=== PATIENT | male | born 1935 ===

== ENCOUNTER 2017-03-01 09:48 | Inpatient (IN) | payer MEDICARE, MEDICAID ==
--- NOTE | 2017-03-01 11:29 | ED PDOC ---
HPI: SOB/CHF/COPD Time Seen by Provider: 03/01/17 10:00 Chief Complaint (Nursing): Shortness Of Breath Chief Complaint (Provider): shortness of breath History Per: Patient History/Exam Limitations: other (poor historian) Additional Complaint(s): 81yo male brought from adult day care for 4 days of shortness of breath. Patient is on O2 at home. EMS gave 2x albuterol, 1x atrovent & solumedrol 125mg in the field. Patient is on O2 at residential. Patient is poor historian. Past Medical History Reviewed: Historical Data, Nursing Documentation, Vital Signs, Unable To Obtain Vital Signs: Last Vital Signs Temp 98.5 F 03/02/17 15:54 Pulse 80 03/02/17 15:54 Resp 18 03/02/17 15:54 BP 126/62 03/02/17 15:54 Pulse Ox 93 L 03/02/17 15:54 - Medical History PMH: Arthritis, Atrial Fibrillation, CHF, Emphysema Denies: Chronic Kidney Disease - Surgical History Other surgeries: valvular surgery - Family History Family History: States: Unknown Family Hx - Social History Current smoker - smoking cessation education provided: No Alcohol: None Drugs: Denies - Home Medications Home Medications: Ambulatory Orders Medication Instructions Recorded Albuterol Sulfate [Proair Hfa] 2 puff IH Q4H PRN 08/12/16 Docusate [Colace] 100 mg PO BID 08/12/16 Ferrous Sulfate [Feosol] 325 mg PO TID 08/12/16 Fluticasone/Salmeterol 250/50 1 puff IH Q12H 08/12/16 [Advair Diskus 250/50] Furosemide [Lasix] 40 mg PO DAILY 08/12/16 Levothyroxine [Synthroid] 25 mcg PO DAILY 08/12/16 Nitroglycerin [Nitrostat] 0.4 mg SL Q5MIN PRN 08/12/16 Rosuvastatin Calcium [Crestor] 40 mg PO HS 08/12/16 Tiotropium [Spiriva] 18 mcg IH DAILY 08/12/16 Warfarin [Coumadin] 5 mg PO DAILY 08/12/16 Acetaminophen [Tylenol 325mg tab] 325 mg PO Q6H PRN 03/01/17 Diclofenac Sodium [Voltaren] 1 appl TOP Q6H PRN 03/01/17 Mv,Min10/Folic Acid/D3/Ala/Lut 1 tab PO DAILY 03/01/17 [Strovite One Caplet] - Allergies Allergies/Adverse Reactions: Allergies Allergy/AdvReac Type Severity Reaction Status Date / Time No Known Allergies Allergy Verified 03/01/17 10:03 Review of Systems Review Of Systems: ROS cannot be obtained secondary to pt's inabilty to answer questions. Physical Exam - Reviewed Nursing Documentation Reviewed: Yes Vital Signs Reviewed: Yes - Physical Exam Appears: Positive for: Well, Non-toxic, No Acute Distress Head Exam: Positive for: ATRAUMATIC, NORMAL INSPECTION, NORMOCEPHALIC Skin: Positive for: Warm, Dry Eye Exam: Positive for: EOMI, PERRL Cardiovascular/Chest: Positive for: Regular Rate, Rhythm Respiratory: Positive for: Rhonchi (slight). Negative for: Rales, Wheezing Gastrointestinal/Abdominal: Positive for: Soft. Negative for: Tenderness Extremity: Positive for: Normal ROM Neurologic/Psych: Positive for: Alert, Oriented - Laboratory Results Result Diagrams: 03/02/17 05:20 03/02/17 05:20 - ECG O2 Sat by Pulse Oximetry: 96 (RA) Pulse Ox Interpretation: Normal (RA) Medical Decision Making Medical Decision Makin:53 Initial Impression: Shortness of breath rule out pneumonia Initial Plan: * Chest X-Ray * Labs * Albuterol * Reevaluation 12:45 Chest X-Ray Results FINDINGS: Lungs: Slight increased vascularity with patchy at alveolar-type appearing infiltrates the right mid to lower lung field ; findings may represent asymmetric pulmonary edema however concomitant pneumonia not excluded. Pleura: No significant pleural effusion identified. No pneumothorax apparent. Cardiovascular: Heart remains enlarged. Probable valve replacement. Osseous Structures: No significant abnormalities. Visualized Upper Abdomen: Normal. OTHER FINDINGS: None. IMPRESSION: Slight increased vascularity with patchy at alveolar-type appearing infiltrates the right mid to lower lung field; findings may represent asymmetric pulmonary edema however concomitant pneumonia not excluded. 14:30 Patient will be admit under hospitalist service iv abx ordered for pneumonia pt also with copd, given steroids and neb treatments Clinical Impression: Pneumonia, Chronic Obstructive, Pulmonary Disease Disposition - Clinical Impression Clinical Impression: COPD exacerbation, Pneumonia - Patient ED Disposition Is Patient to be Admitted: Yes - Disposition Disposition Time: 12:00 Condition: STABLE Additional Comments - Additional Comments Additional Comments: Scribe Attestation: Documented by Rahul Castro acting as a scribe for Elida Quintana MD. Provider Scribe Attestation: All medical record entries made by the Scribe were at my direction and personally dictated by me. I have reviewed the chart and agree that the record accurately reflects my personal performance of the history, physical exam, medical decision making, and the department course for this patient. I have also personally directed, reviewed, and agree with the discharge instructions and disposition.
[2017-03-01] MEDS ORDERED: Albuterol 0.083% Inhal Sol (2.5 mg/3 mL) UD INH ONE ×2 (11:32→14:27)
[2017-03-01] MEDS ORDERED: Albuterol-Ipratrop 3 mg / 0.5 (3 ml) UD ONE (11:47)
[2017-03-01] MEDS ORDERED: Albuterol 0.083% Inhal Sol (2.5 mg/3 mL) UD ONE ×2 (11:51→14:40)
--- NOTE | 2017-03-01 12:46 | RAD ---
HISTORY: short of breath COMPARISON: Comparison made with chest radiograph TECHNIQUE: Chest PA and lateral FINDINGS: LUNGS: Slight increased vascularity with patchy at alveolar-type appearing infiltrates the right mid to lower lung field ; findings may represent asymmetric pulmonary edema however concomitant pneumonia not excluded. PLEURA: No significant pleural effusion identified. No pneumothorax apparent. CARDIOVASCULAR: Heart remains enlarged. . Probable valve replacement. OSSEOUS STRUCTURES: No significant abnormalities. VISUALIZED UPPER ABDOMEN: Normal. OTHER FINDINGS: None. IMPRESSION: Slight increased vascularity with patchy at alveolar-type appearing infiltrates the right mid to lower lung field ; findings may represent asymmetric pulmonary edema however concomitant pneumonia not excluded.
[2017-03-01 12:47] LABS: BASO % 0.3 % (0.0-2.0); EOS % 0.2 % (0.0-4.0); HEMATOCRIT 31.2 % (35.0-51.0); LYMPH # 0.6 K/uL (1.0-4.3); LYMPH % 5.4 % (20.0-40.0); MEAN CELL VOLUME 87.5 fl (80.0-94.0); MEAN CORPUSCULAR HEMOGLOBIN 29.5 pg (27.0-31.0); MEAN CORPUSCULAR HGB CONC 33.7 g/dL (33.0-37.0); MEAN PLATELET VOLUME 8.1 fl (7.2-11.7); MONO # 0.2 K/uL (0.0-0.8); MONO % 1.6 % (0.0-10.0); NEUT # 10.8 K/uL (1.8-7.0); NEUT % 92.5 % (50.0-75.0); NRBC % 0.2 % (0.0-0.0); PLATELET COUNT 66 K/uL (130-400); RED CELL DISTRIBUTION WIDTH 14.5 % (11.5-14.5); WHITE BLOOD COUNT 11.7 K/uL (4.8-10.8)
[2017-03-01 12:58] LABS: ALB/GLOB RATIO 1.4 (1.0-2.1); ALKALINE PHOSPHATASE 25 U/L (38-126); ALT/SGPT 56 U/L (21-72); AST/SGOT 52 U/L (17-59); BILIRUBIN,TOTAL 0.8 mg/dl (0.2-1.3); BLOOD UREA NITROGEN 19 mg/dl (9-20); CALCIUM 8.2 mg/dL (8.4-10.2); CARBON DIOXIDE 34 mmol/L (22-30); CHLORIDE 95 mmol/L (98-107); GFR AFRICAN-AMERICAN > 60; GLUCOSE,RANDOM 138 mg/dL (75-110); POTASSIUM 4.3 MMOL/L (3.6-5.0); SODIUM 139 mmol/l (132-148)
[2017-03-01 14:09] LABS: NEUTROPHIL 96 % (42-75); TOTAL CELLS COUNTED 100
[2017-03-01 14:10] LABS: GIANT PLATELETS PRESENT; LARGE PLATELETS PRESENT
[2017-03-01] MEDS ORDERED: Azithromycin 500 MG in Sodium Chloride 0.9% 250 ML IVPB STA (14:26)
[2017-03-01] MEDS ORDERED: cefTRIAXone (Rocephin) 1 gm Inj ONE (14:37)
--- NOTE | 2017-03-01 14:52 | CP.PCM.HP ---
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 Patient was given steroids and multiple breathing treatments in the field. WBC elevated 11.7, low grade fever, and CXR shows patchy infiltrates, can not exclude pneumonia R mid- lower lung bird. +rhonchi on exam, however patient is comfortably breathing without respiratory distress. 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 HEENT: normocephalic, atraumatic PERRL, EOMI. Vision is grossly intact. External auditory canals clear, hearing grossly intact. No nasal discharge. Oral cavity and pharynx normal. No inflammation, swelling, exudate, or lesions. NECK: Neck supple, non-tender without lymphadenopathy, masses or thyromegaly. CARDIAC: Normal S1 and S2. No S3, S4 or murmurs. Rhythm is regular. LUNGS: +rhonchi, wheezing. no diminished breath sounds. ABDOMEN: Positive bowel sounds. Soft, nondistended, nontender. No guarding or rebound. No masses. BACK: Examination of the spine reveals no spinal deformity, symmetry of spinal muscles, EXTREMITIES: No significant deformity or joint abnormality. No edema. NEUROLOGICAL: Strength and sensation symmetric and intact throughout. Reflexes 2 + throughout. SKIN: Skin normal color, texture and turgor with no lesions or eruptions. PSYCHIATRIC: The patient was oriented to person, place, and time. Normal affect. LABS: 03/01/17 12:28 03/01/17 12:28 IMAGING STUDIES CXR IMPRESSION: Slight increased vascularity with patchy at alveolar-type appearing infiltrates the right mid to lower lung field ; findings may represent asymmetric pulmonary edema however concomitant pneumonia not excluded. EKG NSR, RBBB, rate controlled. ACTIVE MEDICATIONS Azithromycin [Zithromax] 500 mg Sodium Chloride 0.9% [Sodium Chloride 0.9% ADDVANTAGE] 250 ml IVPB STAT cefTRIAXone [Rocephin] 1 gm Sodium Chloride 0.9% 100 ml IVPB STAT 03/01/17 14:42 Diclofenac Sodium [Voltaren] 1 appl TOP Q6H PRN 03/01/17 14:45 Fluticasone/Salmeterol 250/50 [Advair Diskus 250/50] 1 puff IH Q12H 03/01/17 14:47 Levalbuterol [Xopenex] 1.25 mg INH RQ8 PRN 03/01/17 15:00 Furosemide [Lasix] 40 mg PO DAILY 03/01/17 17:00 Docusate [Colace] 100 mg PO BID Ferrous Sulfate [Feosol] 325 mg PO TID methylPREDNISolone [SOLU-Medrol] 60 mg Sodium Chloride 0.9% 50 ml IVPB Q8 03/02/17 09:00 Azithromycin [Zithromax] 500 mg Sodium Chloride 0.9% [Sodium Chloride 0.9% ADDVANTAGE] 250 ml IVPB DAILY Levothyroxine [Synthroid] 25 mcg PO DAILY Tiotropium [Spiriva] 18 mcg IH DAILY Warfarin [Coumadin] 5 mg PO DAILY Anticoagulation Clinical Indication: Atrial Fibrillation cefTRIAXone [Rocephin] 1,000 mg Ped IV Syringe 1 syr IVPB DAILY ASSESSMENT AND PLAN 81 year old male with PMH afib on coumadin, CAD, s/p bovine transcatheter valve implant, hypertension, 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 Patient was given steroids and multiple breathing treatments in the field. WBC elevated 11.7, low grade fever, and CXR shows patchy infiltrates, can not exclude pneumonia R mid-lower lung bird. +rhonchi on exam, however patient is comfortably breathing without respiratory distress. Pneumonia RML, RLL WBC 11.7, afebrile nonproductive cough Continue Azithromycin and Ceftriaxone Continue Xopenex treatments Monitor CBC Emphysema, COPD exacerbation Solumedrol 60mg q8 Xopenex treatments cont advair and spiriva AFIB rate controlled on Coumadin INR for today pending CAD with Valve replacement Cardiomegaly continue lasix continue plavix Hypothyroid continue synthroid Obesity with EVELYN BMI 40.4 Counseled on weight loss DVT prophylaxis on Coumadin for AFib Present on Admission - Present on Admission Any Indicators Present on Admission: No Past Patient History - Past Social History Smoking Status: Former Smoker - CARDIAC Hx Atrial Fibrillation: Yes Hx Congestive Heart Failure: Yes - PULMONARY Hx Emphysema: Yes - RENAL Hx Chronic Kidney Disease: No - ENDOCRINE/METABOLIC Hx Endocrine Disorders: No - INTEGUMENTARY Hx Dermatological Problems: No - MUSCULOSKELETAL/RHEUMATOLOGICAL Hx Arthritis: Yes - PSYCHIATRIC Hx Substance Use: No - SURGICAL HISTORY Hx Cardiac Catheterization: Yes Hx Orthopedic Surgery: Yes - ANESTHESIA Hx Anesthesia: Yes Hx Anesthesia Reactions: No Hx Malignant Hyperthermia: No Meds Allergies/Adverse Reactions: Allergies Allergy/AdvReac Type Severity Reaction Status Date / Time No Known Allergies Allergy Verified 03/01/17 10:03 Results - Vital Signs Recent Vital Signs: Last Vital Signs Temp 99 F 03/01/17 10:04 Pulse 75 03/01/17 10:04 Resp 21 03/01/17 10:04 BP 150/50 L 03/01/17 10:04 Pulse Ox 96 03/01/17 13:22 - Labs Result Diagrams: 03/01/17 12:28 03/01/17 12:28 Labs: Laboratory Results - last 24 hr 03/01/17 03/01/17 12:28 12:28 WBC 11.7 H D RBC 3.56 L Hgb 10.5 L Hct 31.2 L MCV 87.5 MCH 29.5 MCHC 33.7 RDW 14.5 Plt Count 66 L D MPV 8.1 Neut % (Auto) 92.5 H Lymph % (Auto) 5.4 L [place] % (Auto) 1.6 Eos % (Auto) 0.2 Baso % (Auto) 0.3 Neut # 10.8 H Lymph # 0.6 L [place] # 0.2 Eos # 0.0 Baso # 0.0 Neutrophils % (Manual) 96 H Lymphocytes % (Manual) 2 L Monocytes % (Manual) 2 Toxic Granulation Present Platelet Estimate Decreased L Large Platelets Present Giant Platelets Present Hypochromasia (manual) Slight Anisocytosis (manual) Slight Sodium 139 Potassium 4.3 Chloride 95 L Carbon Dioxide 34 H Anion Gap 14 BUN 19 Creatinine 0.8 Est GFR ( Amer) > 60 Est GFR (Non-Af Amer) > 60 Random Glucose 138 H Calcium 8.2 L Total Bilirubin 0.8 AST 52 ALT 56 Alkaline Phosphatase 25 L Troponin I 0.0820 Total Protein 7.0 Albumin 4.1 Globulin 2.9 Albumin/Globulin Ratio 1.4
[2017-03-01 16:56] LABS: PARTIAL THROMBOPLASTIN TIME 30.1 Seconds (25.6-37.1)
[2017-03-01] MEDS ORDERED: MethylPREDNISolone 40 mg Vial ONE (17:49)
[2017-03-01] MEDS: methylPREDNISolone 60 MG in Sodium Chloride 0.9% 50 ML IVPB SCH (17:59)
[2017-03-02] MEDS: Levalbuterol 1.25 MG/3 ML Inhal Soln UD INH PRN ×2 (01:28→06:48)
[2017-03-02] MEDS: methylPREDNISolone 60 MG in Sodium Chloride 0.9% 50 ML IVPB SCH ×3 (02:00→16:49)
[2017-03-02] MEDS: Fluticasone-Salmeterol 250-50mcg Diskus IH SCH ×2 (02:19→14:15)
[2017-03-02] MEDS: Levothyroxine 25 MCG TAB PO SCH (06:25)
[2017-03-02 06:57] LABS: BASO % 0.1 % (0.0-2.0); HEMATOCRIT 28.1 % (35.0-51.0); LYMPH # 0.5 K/uL (1.0-4.3); LYMPH % 5.4 % (20.0-40.0); MEAN CELL VOLUME 88.3 fl (80.0-94.0); MEAN CORPUSCULAR HEMOGLOBIN 29.5 pg (27.0-31.0); MEAN CORPUSCULAR HGB CONC 33.4 g/dL (33.0-37.0); MEAN PLATELET VOLUME 7.6 fl (7.2-11.7); MONO # 0.4 K/uL (0.0-0.8); MONO % 3.9 % (0.0-10.0); NEUT # 8.5 K/uL (1.8-7.0); NEUT % 90.6 % (50.0-75.0); NRBC % 0.1 % (0.0-0.0); PLATELET COUNT 55 K/uL (130-400); RED CELL DISTRIBUTION WIDTH 14.7 % (11.5-14.5); WHITE BLOOD COUNT 9.4 K/uL (4.8-10.8)
[2017-03-02] MEDS ORDERED: Levalbuterol 1.25 MG/3 ML Inhal Soln UD INH ONE (07:05)
[2017-03-02 07:33] LABS: BLOOD UREA NITROGEN 26 mg/dl (9-20); CALCIUM 8.2 mg/dL (8.4-10.2); CARBON DIOXIDE 33 mmol/L (22-30); CHLORIDE 98 mmol/L (98-107); GFR AFRICAN-AMERICAN > 60; GLUCOSE,RANDOM 147 mg/dL (75-110); POTASSIUM 4.5 MMOL/L (3.6-5.0); SODIUM 140 mmol/l (132-148)
[2017-03-02] MEDS: Azithromycin 500 MG in Sodium Chloride 0.9% 250 ML IVPB SCH (09:09)
[2017-03-02] MEDS: Tiotropium 18 mcg Cap For Inhalation IH SCH (09:09)
[2017-03-02 10:13] LABS: MYELOCYTE 1 % (0-0); NEUTROPHIL 90 % (42-75); TOTAL CELLS COUNTED 100
[2017-03-02 10:16] LABS: LARGE PLATELETS PRESENT
--- NOTE | 2017-03-02 11:10 | CP.PCM.PN ---
Subjective - Date & Time of Evaluation Date of Evaluation: 03/02/17 Time of Evaluation: 11:08 - Subjective Subjective: patient seen examined bedside, states he feels improved however has dyspnea on exertion has new crackles in lung bases pt walks with walker at home, will order PT ECHO for today diurese for likely concomitant chf exacerbation thrombocytopenic today, plt 55, manual 76 hold anticoagulation today no active chest pain, no dyspnea at rest. Temp Pulse Resp BP Pulse Ox 98.7 F 78 20 126/60 90 L 03/02/17 07:55 03/02/17 09:00 03/02/17 07:55 03/02/17 09:40 03/02/17 07:55 Objective - Vital Signs/Intake and Output Vital Signs (last 24 hours): Temp Pulse Resp BP Pulse Ox 98.7 F 78 20 126/60 90 L 03/02/17 07:55 03/02/17 09:00 03/02/17 07:55 03/02/17 09:40 03/02/17 07:55 - Medications Medications: Current Medications Docusate Sodium (Colace) 100 mg PO BID [facility] Last Admin: 03/02/17 08:53 Dose: 100 mg Ferrous Sulfate (Feosol) 325 mg PO TID [facility] Last Admin: 03/02/17 08:54 Dose: 325 mg Furosemide (Lasix) 40 mg PO DAILY [facility] Last Admin: 03/02/17 08:54 Dose: 40 mg Furosemide (Lasix) 40 mg IVP Q12 [facility] Home Med (Diclofenac Sodium [Voltaren]) 1 appl TOP Q6H PRN PRN Reason: Pain, moderate (4-7) Azithromycin 500 mg/ Sodium (Chloride) 250 mls @ 250 mls/hr IVPB DAILY [facility] Last Admin: 03/02/17 09:09 Dose: 250 mls/hr Ceftriaxone Sodium 1 gm/ (Sodium Chloride) 100 mls @ 100 mls/hr IVPB DAILY [facility] Last Admin: 03/02/17 08:00 Dose: 100 mls/hr Methylprednisolone 60 mg/ (Sodium Chloride) 50.96 mls @ 101.92 mls/hr IVPB Q8 [facility] Last Admin: 03/02/17 08:55 Dose: 101.92 mls/hr Levalbuterol HCl (Xopenex) 1.25 mg INH RQ8 PRN PRN Reason: Shortness of Breath Last Admin: 03/02/17 06:48 Dose: 1.25 mg Levothyroxine Sodium (Synthroid) 25 mcg PO DAILY@0630 [facility] Last Admin: 03/02/17 06:25 Dose: 25 mcg Rivaroxaban (Xarelto) 20 mg PO DAILY [facility] PRN Reason: Protocol Fluticasone/Salmeterol (Advair Diskus 250/50) 1 puff IH Q12H [facility] Last Admin: 03/02/17 02:19 Dose: 1 puff Tiotropium [place] (Spiriva) 18 mcg IH DAILY [facility] Last Admin: 03/02/17 09:09 Dose: 18 mcg - Labs Labs: 03/02/17 05:20 03/02/17 05:20 PT 12.8 Seconds (9.8-13.1) 03/02/17 05:20 INR 1.1 (0.9-1.2) 03/02/17 05:20 APTT 30.1 Seconds (25.6-37.1) 03/01/17 15:00 - Constitutional Appears: Non-toxic, No Acute Distress - Head Exam Head Exam: ATRAUMATIC, NORMOCEPHALIC - Eye Exam Eye Exam: EOMI, Normal appearance, PERRL Pupil Exam: NORMAL ACCOMODATION - ENT Exam ENT Exam: Mucous Membranes Moist, Normal Oropharynx - Neck Exam Neck Exam: Full ROM, Normal Inspection - Respiratory Exam Respiratory Exam: Rales, Rhonchi. absent: Respiratory Distress - Cardiovascular Exam Cardiovascular Exam: RRR, +S1, +S2. absent: Gallop, Rubs - GI/Abdominal Exam GI & Abdominal Exam: Soft. absent: Tenderness, Mass, Organomegaly - Extremities Exam Extremities Exam: Normal Capillary Refill. 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 Patient was given steroids and multiple breathing treatments in the field. WBC elevated 11.7, low grade fever, and CXR shows patchy infiltrates, can not exclude pneumonia R mid-lower lung bird. +rhonchi on exam, however patient is comfortably breathing without respiratory distress. 03/02/17: + Dyspnea on exertion and new crackles in lung bases. Pt walks with walker at home, will order PT and ECHO for today. Diurese for likely concomitant chf exacerbation. Thrombocytopenic today, plt 55, manual 76, hold anticoagulation today Pneumonia RML, RLL WBC 11.7 on admission, afebrile Today leukocytosis improved, rales on exam today Continues to have mild cough Continue Azithromycin and Ceftriaxone Continue Xopenex treatments Monitor CBC Physical therapy ordered for today, called. Emphysema, COPD exacerbation Solumedrol 60mg q8 Xopenex treatments cont advair and spiriva CHF exacerbation Rales on exam today Pt on Lasix 40 PO at home, will give additional 20mg IVP this morning Continue with 40 IVP until symptoms resolve Monitor renal function - Cr 0.9 today, mild azotemia, monitor. ECHO for today, called Thrombocytopenia Platelets 55 today, 76 on manual count monitor Hematology and Oncology Consult: Dr. Jeremías Arias AFIB rate controlled pt to be switched to XARELTO today 20 mg PO QD for afib with nonmetal valve replacement HOLD today, however for thrombocytopenia 76 manual count CAD with Valve replacement Cardiomegaly continue lasix continue plavix Hypothyroid continue synthroid Obesity with EVELYN BMI 40.4 Counseled on weight loss DVT prophylaxis on XARELTO for AFIB
[2017-03-02] MEDS ORDERED: Menthol/Methyl Salicylate Oinment TOP PRN (12:00)
--- NOTE | 2017-03-02 13:13 | CP.PCM.CON ---
History of Present Illness - History of Present Illness History of Present Illness: This is a 81 yrs old male who was brought to the ER from adult day care because of cough and shortness of breath. He has a h/o CHF, copd and asthma. He was given an albuterol treatment in the ambulance, and pt felt a little better. A chest xray done in the ER showed a infiltrative changes in the left mid and lower lugs. He was started on His platelet cunt is 55 but manual count is 76K. No h/o heavy smoking.antibiotics with ceftriaxone and azithromycin and pt's wbc count which was 11 has gone down to 7.4He gives no h/o bleeding from any site. Past Patient History - Past Medical History & Family History Past Medical History?: Yes - Past Social History Smoking Status: Former Smoker - CARDIAC Hx Cardiac Disorders: Yes Hx Atrial Fibrillation: Yes Hx Hypertension: Yes - PULMONARY Hx Respiratory Disorders: Yes Hx Asthma: Yes Hx Emphysema: Yes - NEUROLOGICAL Hx Neurological Disorder: No - HEENT Hx HEENT Problems: No - RENAL Hx Chronic Kidney Disease: No - ENDOCRINE/METABOLIC Hx Endocrine Disorders: No - HEMATOLOGICAL/ONCOLOGICAL Hx Blood Disorders: No Hx AIDS: No Hx Human Immunodeficiency Virus (HIV): No - INTEGUMENTARY Hx Dermatological Problems: No - MUSCULOSKELETAL/RHEUMATOLOGICAL Hx Arthritis: Yes Hx Falls: No - GASTROINTESTINAL Hx Gastrointestinal Disorders: No - GENITOURINARY/GYNECOLOGICAL Hx Genitourinary Disorders: No - PSYCHIATRIC Hx Psychophysiologic Disorder: No Hx Substance Use: No - SURGICAL HISTORY Hx Cardiac Catheterization: Yes Hx Orthopedic Surgery: Yes - ANESTHESIA Hx Anesthesia: Yes Hx Anesthesia Reactions: No Hx Malignant Hyperthermia: No Meds Allergies/Adverse Reactions: Allergies Allergy/AdvReac Type Severity Reaction Status Date / Time No Known Allergies Allergy Verified 03/01/17 10:03 - Medications Medications: Current Medications Camphor/Menthol (Bengay) 1 applic TOP Q6H PRN PRN Reason: Pain, moderate (4-7) Docusate Sodium (Colace) 100 mg PO BID [facility] Last Admin: 03/02/17 08:53 Dose: 100 mg Ferrous Sulfate (Feosol) 325 mg PO TID [facility] Last Admin: 03/02/17 08:54 Dose: 325 mg Furosemide (Lasix) 40 mg PO DAILY [facility] Last Admin: 03/02/17 08:54 Dose: 40 mg Furosemide (Lasix) 40 mg IVP Q12 [facility] Azithromycin 500 mg/ Sodium (Chloride) 250 mls @ 250 mls/hr IVPB DAILY [facility] Last Admin: 03/02/17 09:09 Dose: 250 mls/hr Ceftriaxone Sodium 1 gm/ (Sodium Chloride) 100 mls @ 100 mls/hr IVPB DAILY [facility] Last Admin: 03/02/17 08:00 Dose: 100 mls/hr Methylprednisolone 60 mg/ (Sodium Chloride) 50.96 mls @ 101.92 mls/hr IVPB Q8 [facility] Last Admin: 03/02/17 08:55 Dose: 101.92 mls/hr Levalbuterol HCl (Xopenex) 1.25 mg INH RQ8 PRN PRN Reason: Shortness of Breath Last Admin: 03/02/17 06:48 Dose: 1.25 mg Levothyroxine Sodium (Synthroid) 25 mcg PO DAILY@0630 [facility] Last Admin: 03/02/17 06:25 Dose: 25 mcg Rivaroxaban (Xarelto) 20 mg PO DAILY [facility] PRN Reason: Protocol Fluticasone/Salmeterol (Advair Diskus 250/50) 1 puff IH Q12H [facility] Last Admin: 03/02/17 02:19 Dose: 1 puff Tiotropium [place] (Spiriva) 18 mcg IH DAILY [facility] Last Admin: 03/02/17 09:09 Dose: 18 mcg Physical Exam - Additional Findings Additional findings: Physical exam' obese, alert, well oriented in no acute distress neck; Supple, no adenopathy Chest; Clear, no rales or rhonchi Heart; RSR, no murmur Abd; Soft, no mass, no h./s megaly Results - Vital Signs Recent Vital Signs: Last Vital Signs Temp 98.4 F 03/02/17 12:07 Pulse 83 03/02/17 12:07 Resp 20 03/02/17 12:07 BP 123/62 03/02/17 12:07 Pulse Ox 90 L 03/02/17 12:07 - Labs Result Diagrams: 03/02/17 05:20 03/02/17 05:20 Labs: Laboratory Results - last 24 hr 03/01/17 03/02/17 03/02/17 15:00 05:20 05:20 WBC 9.4 RBC 3.18 L Hgb 9.4 L Hct 28.1 L MCV 88.3 MCH 29.5 MCHC 33.4 RDW 14.7 H Plt Count 55 L Manual Plt Count 76 L MPV 7.6 Neut % (Auto) 90.6 H Lymph % (Auto) 5.4 L [place] % (Auto) 3.9 Eos % (Auto) 0.0 Baso % (Auto) 0.1 Neut # 8.5 H Lymph # 0.5 L [place] # 0.4 Eos # 0.0 Baso # 0.0 Neutrophils % (Manual) 90 H Lymphocytes % (Manual) 4 L Monocytes % (Manual) 5 Myelocytes % 1 H Platelet Estimate Decreased L Large Platelets Present Hypochromasia (manual) Slight Anisocytosis (manual) Slight Ovalocytes Slight PT 13.6 H 12.8 INR 1.2 1.1 APTT 30.1 Sodium Potassium Chloride Carbon Dioxide Anion Gap BUN Creatinine Est GFR ( Amer) Est GFR (Non-Af Amer) Random Glucose Calcium 03/02/17 05:20 WBC RBC Hgb Hct MCV MCH MCHC RDW Plt Count Manual Plt Count MPV Neut % (Auto) Lymph % (Auto) [place] % (Auto) Eos % (Auto) Baso % (Auto) Neut # Lymph # [place] # Eos # Baso # Neutrophils % (Manual) Lymphocytes % (Manual) Monocytes % (Manual) Myelocytes % Platelet Estimate Large Platelets Hypochromasia (manual) Anisocytosis (manual) Ovalocytes PT INR APTT Sodium 140 Potassium 4.5 Chloride 98 Carbon Dioxide 33 H Anion Gap 14 BUN 26 H Creatinine 0.9 Est GFR ( Amer) > 60 Est GFR (Non-Af Amer) > 60 Random Glucose 147 H Calcium 8.2 L Assessment & Plan - Assessment and Plan (Free Text) Assessment: imp; Mild thgrombocytopenia secondary to infection.. Plan: Plan; I feel that with antibiotics, as the pt gets better, the platelets will go up as well.. If not may need a mattow. - Date & Time Date: 03/02/17 Time: 13:28
[2017-03-02 19:19] VITALS: BMI 40.3
[2017-03-03] MEDS: methylPREDNISolone 60 MG in Sodium Chloride 0.9% 50 ML IVPB SCH ×3 (01:31→16:32)
[2017-03-03] MEDS: Levothyroxine 25 MCG TAB PO SCH (07:03)
[2017-03-03] MEDS: Tiotropium 18 mcg Cap For Inhalation IH SCH (08:31)
[2017-03-03] MEDS: Azithromycin 500 MG in Sodium Chloride 0.9% 250 ML IVPB SCH (09:40)
--- NOTE | 2017-03-03 09:45 | PQF GENQUE ---
This form is a permanent part of the medical record 03/03/17 Dr. Jp Colin, Please clarify the type of atrial fibrillation if known. Documentation the patient has atrial fibrillation and was on Coumadin which is now changed to Xarelto. Clarification of your documentation is requested to better reflect the severity of illness and intensity of treatment of your patient. PHYSICIAN'S RESPONSE Type of atrial fibrillation [] Chronic [X] Paroxysmal [] Permanent [] Persistent [] Other (please specify type) [] Unable to determine [] Unknown Based on your medical judgment of the clinical indicators outlined above please clarify the following: [] Practitioner response [] If unable to determine, please check the box, sign and date. Present On Admission (POA) Indicator: [X] Present at the time of admission [] Not present at the time of admission [] Clinically Undetermined In responding to this query, please exercise your independent professional judgment. The fact that a question is asked does not imply that any particular answer is desired or expected. Thank you for your clarification on this documentation. If you have any questions please call:extension [phone] Medical Records Dept. * Thank you, Sophia Birch RN CDMP MTDD
--- NOTE | 2017-03-03 09:48 | PQF CHF ---
This form is a permanent part of the medical record 03/03/17 Dr. Jp Colin Please clarify the type of chf after workup is complete. Documentation of a history of CHF, now with exacerbation. Echo is pending. Treated with IV Lasix. Clarification of your documentation is requested to better reflect the severity of illness and intensity of treatment of your patient. Indicators present [x] Diagnosis of CHF and/or history of CHF [] BNP > 200 [] Imaging Finding of Pulmonary Edema /Pleural Effusions [] Fluid/Volume Overload [] Pitting edema [] Ejection Fraction < 40% (Indicative of Systolic Heart Failure) [] Ejection Fraction > 40% (Indicative of Diastolic Heart Failure) [X] Dyspnea / Orthopenea / Paroxysmal Nocturnal Dyspnea [X] Other:ACUTE ON CHRONIC HYPOXIC RESPIRATORY FAILURE CAUSING TRANSIENT ISCHEMIC LV DYSFUNCTION, CAUSING PULMONARY VASCULAR CONGESTION Location in the medical record that reflects the above clinical findings: [] Treatment Provided: [x] PHYSICIAN'S RESPONSE Based on your medical judgment of the clinical indicators outlined above, are you treating this patient for a known or suspected: [] Acute CHF [] Systolic [] Diastolic [] Combined [] Chronic CHF [] Systolic [] Diastolic [] Combined [] Acute on Chronic CHF []Systolic [] Diastolic [] Combined [] CHF due hypertension [] Acute systolic []Chronic systolic [] Acute /chronic systolic [X] Other, please indicate: [X] ACUTE ON CHRONIC HYPOXIC RESPIRATORY FAILURE CAUSING TRANSIENT ISCHEMIC LV DYSFUNCTION, CAUSING PULMONARY VASCULAR CONGESTION [] If Unable to Determine, please check the box, sign and date. Present On Admission (POA) Indicator: [X] Present at the time of admission [] Not present at the time of admission [] Clinically Undetermined In responding to this query, please exercise your independent professional judgment. The fact that a question is asked does not imply that any particular answer is desired or expected. Thank you for your clarification on this documentation. If you have any questions please call:extension [phone] Medical Records Dept. * Thank you, Sophia Birch RN CDMP MTDD
[2017-03-03 10:53] LABS: BASO % 0.1 % (0.0-2.0); HEMATOCRIT 28.9 % (35.0-51.0); LYMPH # 0.3 K/uL (1.0-4.3); LYMPH % 6.1 % (20.0-40.0); MEAN CELL VOLUME 87.4 fl (80.0-94.0); MEAN CORPUSCULAR HEMOGLOBIN 29.9 pg (27.0-31.0); MEAN CORPUSCULAR HGB CONC 34.2 g/dL (33.0-37.0); MEAN PLATELET VOLUME 7.8 fl (7.2-11.7); MONO # 0.2 K/uL (0.0-0.8); MONO % 2.9 % (0.0-10.0); NEUT # 5.2 K/uL (1.8-7.0); NEUT % 90.9 % (50.0-75.0); PLATELET COUNT 70 K/uL (130-400); RED CELL DISTRIBUTION WIDTH 14.6 % (11.5-14.5); WHITE BLOOD COUNT 5.7 K/uL (4.8-10.8)
--- NOTE | 2017-03-03 11:44 | CARD ---
APPROVED REPORT EXAM: Two-dimensional and M-mode echocardiogram with Doppler and color Doppler. Other Information Quality : FairRhythm : Technically limited study due to COPD INDICATION Dyspnea 2D DIMENSIONS IVSd1.60 (0.7-1.1cm)LVDd5.13 (3.9-5.9cm) LVOT Diameter1.79 (1.8-2.4cm)PWd1.31 (0.7-1.1cm) IVSs1.96 (0.8-1.2cm)LVDs3.13 (2.5-4.0cm) FS (%) 38.9 %PWs1.73 (0.8-1.2cm) M-Mode DIMENSIONS Left Atrium (MM)4.96 (2.5-4.0cm)Aortic Root2.69 (2.2-3.7cm) Aortic Cusp Exc.1.78 (1.5-2.0cm) Aortic Valve AoV Peak Yxisqrin417.0cm/sAoV VTI61.6cmAO Peak GR.32mmHg LVOT Peak Hyckavoh344.5cm/sLVOT VTI22.53cmAO Mean GR.18mmHg CLARISSA (VMAX)0.84vt1CJX (VTI)0.42cm2 Mitral Valve MV E Ebrdjyfz92.3cm/sMV DECEL VDGN377hpAP A Xekdluvs77.4cm/s MV MPQ75ygH/A ratio1.8MVA (PHT)3.74cm2 TDI Lateral E' Peak V7.90cm/sMedial E' Peak V7.99cm/sE/Lateral E'11.2 E/Medial E'11.1 Pulmonary Valve PV Peak Xssyyvvv135.8cm/s Tricuspid Valve TR Peak Debuqidj613ji/sRAP VPCAIQLD00yjKkQP Peak Gr.4mmHg HCFF67lvQt LEFT VENTRICLE The left ventricle is normal size. There is mild concentric left ventricular hypertrophy. The left ventricular function is normal. The left ventricular ejection fraction is within the normal range. The Ejection Fraction is 65-70%. There is normal LV segmental wall motion. The left ventricular diastolic function is normal. No left ventricle thrombus noted on this study. There is no mass noted in the left ventricle. RIGHT VENTRICLE The right ventricle is normal size. There is normal right ventricular wall thickness. The right ventricular systolic function is normal. ATRIA The left atrium size is normal. The right atrium size is normal. The interatrial septum is intact with no evidence for an atrial septal defect. AORTIC VALVE The aortic valve is normal in structure and function. No aortic regurgitation is present. There is mild valvular aortic stenosis. There is no aortic valvular vegetation. 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 The prosthetic aortic valve appears normal. MITRAL VALVE The mitral valve is normal in structure and function. There is no evidence of mitral valve prolapse. There is no mitral valve stenosis. There is no mitral valve regurgitation noted. TRICUSPID VALVE The tricuspid valve is normal in structure and function. There is no tricuspid valve regurgitation noted. There is no tricuspid valve prolapse or vegetation. There is no tricuspid valve stenosis. PULMONIC VALVE The pulmonary valve is normal in structure and function. There is no pulmonic valvular regurgitation. There is no pulmonic valvular stenosis. GREAT VESSELS The aortic root is normal in size. The IVC is normal in size and collapses >50% with inspiration. PERICARDIAL EFFUSION The pericardium appears normal. There is no pleural effusion. <Conclusion> The left ventricle is normal size. There is mild concentric left ventricular hypertrophy. The left ventricular function is normal. The left ventricular ejection fraction is within the normal range. The Ejection Fraction is 65-70%. There is mild valvular aortic stenosis. 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 The prosthetic aortic valve appears normal.
[2017-03-03 12:02] LABS: NEUTROPHIL 92 % (42-75); TOTAL CELLS COUNTED 100
[2017-03-03 12:03] LABS: LARGE PLATELETS PRESENT
[2017-03-03 12:13] LABS: BLOOD UREA NITROGEN 36 mg/dl (9-20); CARBON DIOXIDE 37 mmol/L (22-30); CHLORIDE 94 mmol/L (98-107); GFR AFRICAN-AMERICAN > 60; GLUCOSE,RANDOM 137 mg/dL (75-110); POTASSIUM 3.9 MMOL/L (3.6-5.0); SODIUM 141 mmol/l (132-148)
--- NOTE | 2017-03-03 13:06 | CP.PCM.PN ---
Subjective - Date & Time of Evaluation Date of Evaluation: 03/03/17 Time of Evaluation: 13:04 - Subjective Subjective: Pt is afebrile , and the platelet count is trending upwards. Tday the platelets were 88K. May start anticoagulant once platelets are above 100K. Objective - Vital Signs/Intake and Output Vital Signs (last 24 hours): Temp Pulse Resp BP Pulse Ox 98.2 F 63 20 129/70 94 L 03/03/17 12:24 03/03/17 12:24 03/03/17 12:24 03/03/17 12:24 03/03/17 12:24 - Medications Medications: Current Medications Camphor/Menthol (Bengay) 1 applic TOP Q6H PRN PRN Reason: Pain, moderate (4-7) Docusate Sodium (Colace) 100 mg PO BID [facility] Last Admin: 03/03/17 08:30 Dose: 100 mg Ferrous Sulfate (Feosol) 325 mg PO TID [facility] Last Admin: 03/03/17 12:32 Dose: 325 mg Furosemide (Lasix) 40 mg PO DAILY [facility] Last Admin: 03/02/17 08:54 Dose: 40 mg Furosemide (Lasix) 40 mg IVP Q12 [facility] Last Admin: 03/03/17 08:30 Dose: 40 mg Azithromycin 500 mg/ Sodium (Chloride) 250 mls @ 250 mls/hr IVPB DAILY [facility] Last Admin: 03/03/17 09:40 Dose: 250 mls/hr Ceftriaxone Sodium 1 gm/ (Sodium Chloride) 100 mls @ 100 mls/hr IVPB DAILY [facility] Last Admin: 03/03/17 08:31 Dose: 100 mls/hr Methylprednisolone 60 mg/ (Sodium Chloride) 50.96 mls @ 101.92 mls/hr IVPB Q8 [facility] Last Admin: 03/03/17 08:29 Dose: 101.92 mls/hr Levalbuterol HCl (Xopenex) 1.25 mg INH RQ8 PRN PRN Reason: Shortness of Breath Last Admin: 03/02/17 06:48 Dose: 1.25 mg Levothyroxine Sodium (Synthroid) 25 mcg PO DAILY@0630 [facility] Last Admin: 03/03/17 07:03 Dose: 25 mcg Rivaroxaban (Xarelto) 20 mg PO DAILY [facility] PRN Reason: Protocol Fluticasone/Salmeterol (Advair Diskus 250/50) 1 puff IH Q12H [facility] Last Admin: 03/02/17 14:15 Dose: 1 puff Tiotropium [place] (Spiriva) 18 mcg IH DAILY [facility] Last Admin: 03/03/17 08:31 Dose: 18 mcg - Labs Labs: 03/03/17 10:42 03/03/17 11:55 PT 12.8 Seconds (9.8-13.1) 03/02/17 05:20 INR 1.1 (0.9-1.2) 03/02/17 05:20 APTT 30.1 Seconds (25.6-37.1) 03/01/17 15:00
[2017-03-03] MEDS: Fluticasone-Salmeterol 250-50mcg Diskus IH SCH (14:25)
--- NOTE | 2017-03-03 14:57 | CP.PCM.PN ---
Subjective - Date & Time of Evaluation Date of Evaluation: 03/03/17 Time of Evaluation: 14:55 - Subjective Subjective: PT FEELING IMPROVED HOWEVER NOT YET BACK TO BASELINE PHYSICAL THERAPY TODAY, PT DID LOSE SOME BALANCE WHILE AMBULATING DOES NOT WISH TO GO TO ANOTHER FACILITY WILL REEVALUATE AGAIN TOMORROW CHRONIC RESPIRATORY FAILURE, NEAR BASELINE TODAY PATIENT HAD EPISODE OF [facility], SENT FOR OCCULT BLOOD VITALS ARE STABLE, NO TACHYCARDIA, H/H STABLE. BUN MILDLY ELEVATED, PT ALSO RECEIVING LASIX NO ACUTE DISTRESS Objective - Vital Signs/Intake and Output Vital Signs (last 24 hours): Temp Pulse Resp BP Pulse Ox 98.2 F 63 20 129/70 94 L 03/03/17 12:24 03/03/17 12:24 03/03/17 12:24 03/03/17 12:24 03/03/17 12:24 - Medications Medications: Current Medications Camphor/Menthol (Bengay) 1 applic TOP Q6H PRN PRN Reason: Pain, moderate (4-7) Docusate Sodium (Colace) 100 mg PO BID [facility] Last Admin: 03/03/17 08:30 Dose: 100 mg Ferrous Sulfate (Feosol) 325 mg PO TID [facility] Last Admin: 03/03/17 12:32 Dose: 325 mg Furosemide (Lasix) 40 mg PO DAILY [facility] Last Admin: 03/02/17 08:54 Dose: 40 mg Furosemide (Lasix) 40 mg IVP Q12 [facility] Last Admin: 03/03/17 08:30 Dose: 40 mg Azithromycin 500 mg/ Sodium (Chloride) 250 mls @ 250 mls/hr IVPB DAILY [facility] Last Admin: 03/03/17 09:40 Dose: 250 mls/hr Ceftriaxone Sodium 1 gm/ (Sodium Chloride) 100 mls @ 100 mls/hr IVPB DAILY [facility] Last Admin: 03/03/17 08:31 Dose: 100 mls/hr Methylprednisolone 60 mg/ (Sodium Chloride) 50.96 mls @ 101.92 mls/hr IVPB Q8 [facility] Last Admin: 03/03/17 08:29 Dose: 101.92 mls/hr Levalbuterol HCl (Xopenex) 1.25 mg INH RQ8 PRN PRN Reason: Shortness of Breath Last Admin: 03/02/17 06:48 Dose: 1.25 mg Levothyroxine Sodium (Synthroid) 25 mcg PO DAILY@0630 [facility] Last Admin: 03/03/17 07:03 Dose: 25 mcg Rivaroxaban (Xarelto) 20 mg PO DAILY [facility] PRN Reason: Protocol Fluticasone/Salmeterol (Advair Diskus 250/50) 1 puff IH Q12H [facility] Last Admin: 03/03/17 14:25 Dose: 1 puff Tiotropium [place] (Spiriva) 18 mcg IH DAILY [facility] Last Admin: 03/03/17 08:31 Dose: 18 mcg - Labs Labs: 03/03/17 10:42 03/03/17 11:55 PT 12.8 Seconds (9.8-13.1) 03/02/17 05:20 INR 1.1 (0.9-1.2) 03/02/17 05:20 APTT 30.1 Seconds (25.6-37.1) 03/01/17 15:00 - Constitutional Appears: Non-toxic, No Acute Distress - Head Exam Head Exam: ATRAUMATIC, NORMOCEPHALIC - Eye Exam Eye Exam: EOMI, Normal appearance, PERRL Pupil Exam: NORMAL ACCOMODATION - ENT Exam ENT Exam: Mucous Membranes Moist, Normal Oropharynx - Neck Exam Neck Exam: Full ROM, Normal Inspection - Respiratory Exam Respiratory Exam: Clear to Ausculation Bilateral, NORMAL BREATHING PATTERN - Cardiovascular Exam Cardiovascular Exam: RRR, +S1, +S2 - GI/Abdominal Exam GI & Abdominal Exam: Soft, Normal Bowel Sounds. absent: Tenderness, Organomegaly - Extremities Exam Extremities Exam: Normal Capillary Refill, Pedal Edema. 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 Patient was given steroids and multiple breathing treatments in the field. WBC elevated 11.7, low grade fever, and CXR shows patchy infiltrates, can not exclude pneumonia R mid-lower lung bird. +rhonchi on exam, however patient is comfortably breathing without respiratory distress. 03/02/17: + Dyspnea on exertion and new crackles in lung bases. Pt walks with walker at home, will order PT and ECHO for today. Diurese for likely concomitant chf exacerbation. Thrombocytopenic today, plt 55, manual 76, hold anticoagulation today 03/03/17 Dyspnea is improving, seen by PT. Seen by Dr. Jeremías Arias. One episode of melena, Plt 88 today, coumadin has been held for 2 days. No tachycardia, elevated BUN. Occult blood sent. Pneumonia RML, RLL WBC 11.7 on admission, TODAY 5.7 afebrile leukocytosis improved, rales also improved from yesterday Continues to have mild cough, however also improving Continue Azithromycin and Ceftriaxone Continue Xopenex treatments Monitor CBC Physical therapy seen, patient became mildly unbalanced, will reevaluate again tomorrow as he does not wish to go to facility. He attends adult day care where they have PT. Melena One episode today on admission H/H 10.5/31.2, today 9.9/28.9 patient platelets are low coumadin has been held for 2 days no tachycardia occult blood pending BUN elevated will monitor. likely follow up with GI as an outpatient. Emphysema, COPD exacerbation Solumedrol 60mg q8 Xopenex treatments cont advair and spiriva CHF exacerbation Rales improving, pedal edema Continue with 40 IVP until symptoms resolve Monitor renal function - Cr 0.9 today, mild azotemia, monitor. ECHO read by Dr. Nelson, normal EF Patient likely had LV dysfunction due to acute on chronic hypoxic respiratory failure, causing ischemic cardiomyopathy and pulmonary vascular congestion Thrombocytopenia Platelets 55 today, 76 on manual count yesterday, 88 today on manual count monitor Hematology and Oncology Consult: Dr. Jeremías Arias AFIB rate controlled pt to be switched to XARELTO today 20 mg PO QD for afib with nonmetal valve replacement HOLD today, however for thrombocytopenia 88 manual count Can restart when platelets count > 100 CAD with Valve replacement Cardiomegaly continue lasix hold plavix Hypothyroid continue synthroid Obesity with EVELYN BMI 40.4 Counseled on weight loss DVT prophylaxis on XARELTO for AFIB
[2017-03-03] MEDS: Levalbuterol 1.25 MG/3 ML Inhal Soln UD INH PRN (19:05)
[2017-03-04] MEDS: methylPREDNISolone 60 MG in Sodium Chloride 0.9% 50 ML IVPB SCH ×3 (00:35→17:19)
[2017-03-04] MEDS: Fluticasone-Salmeterol 250-50mcg Diskus IH SCH ×4 (02:07→17:17)
[2017-03-04] MEDS: Levalbuterol 1.25 MG/3 ML Inhal Soln UD INH PRN (04:20)
[2017-03-04] MEDS: Levothyroxine 25 MCG TAB PO SCH (06:12)
[2017-03-04] MEDS: Tiotropium 18 mcg Cap For Inhalation IH SCH (09:49)
[2017-03-04] MEDS: Azithromycin 500 MG in Sodium Chloride 0.9% 250 ML IVPB SCH (11:51)
--- NOTE | 2017-03-04 18:59 | CP.PCM.PN ---
Subjective - Date & Time of Evaluation Date of Evaluation: 03/04/17 Time of Evaluation: 12:30 - Subjective Subjective: Patient seen and examined bedside. Still with baseline SOB with minimal sputum production. Afebrile, saturating 90-91 5 on 2 L O2 via [place] and as low as 80 % with ambulation No more episodes of melena . Guaic positive Refusing to go to [facility] and would like to go home Objective - Vital Signs/Intake and Output Vital Signs (last 24 hours): Temp Pulse Resp BP Pulse Ox 97.8 F 69 18 150/75 93 L 03/04/17 15:58 03/04/17 15:58 03/04/17 15:58 03/04/17 15:58 03/04/17 15:58 Intake and Output: 03/04/17 03/04/17 06:59 18:59 Intake Total 290 1650 Output Total 3500 2000 Balance -3210 -350 - Medications Medications: Current Medications Camphor/Menthol (Bengay) 1 applic TOP Q6H PRN PRN Reason: Pain, moderate (4-7) Docusate Sodium (Colace) 100 mg PO BID [facility] Last Admin: 03/04/17 18:35 Dose: Not Given Ferrous Sulfate (Feosol) 325 mg PO TID [facility] Last Admin: 03/04/17 17:18 Dose: 325 mg Furosemide (Lasix) 40 mg PO DAILY [facility] Last Admin: 03/02/17 08:54 Dose: 40 mg Furosemide (Lasix) 40 mg IVP Q12 [facility] Last Admin: 03/04/17 09:46 Dose: 40 mg Azithromycin 500 mg/ Sodium (Chloride) 250 mls @ 250 mls/hr IVPB DAILY [facility] Last Admin: 03/04/17 11:51 Dose: 250 mls/hr Ceftriaxone Sodium 1 gm/ (Sodium Chloride) 100 mls @ 100 mls/hr IVPB DAILY [facility] Last Admin: 03/04/17 09:48 Dose: 100 mls/hr Methylprednisolone 40 mg/ (Sodium Chloride) 50 mls @ 100 mls/hr IVPB Q12 [facility] Levalbuterol HCl (Xopenex) 1.25 mg INH RQ8 PRN PRN Reason: Shortness of Breath Last Admin: 03/04/17 04:20 Dose: 1.25 mg Levothyroxine Sodium (Synthroid) 25 mcg PO DAILY@0630 [facility] Last Admin: 03/04/17 06:12 Dose: 25 mcg Rivaroxaban (Xarelto) 20 mg PO DAILY [facility] PRN Reason: Protocol Fluticasone/Salmeterol (Advair Diskus 250/50) 1 puff IH Q12H [facility] Last Admin: 03/04/17 17:17 Dose: 1 puff Tiotropium [place] (Spiriva) 18 mcg IH DAILY [facility] Last Admin: 03/04/17 09:49 Dose: 18 mcg - Labs Labs: 03/03/17 10:42 03/03/17 11:55 PT 12.8 Seconds (9.8-13.1) 03/02/17 05:20 INR 1.1 (0.9-1.2) 03/02/17 05:20 APTT 30.1 Seconds (25.6-37.1) 03/01/17 15:00 - Constitutional Appears: No Acute Distress, Chronically Ill, Other (obese) - Head Exam Head Exam: ATRAUMATIC, NORMOCEPHALIC - Eye Exam Eye Exam: EOMI, Normal appearance, PERRL Pupil Exam: NORMAL ACCOMODATION - ENT Exam ENT Exam: Mucous Membranes Moist, Normal Exam - Neck Exam Neck Exam: Normal Inspection - Respiratory Exam Respiratory Exam: Prolonged Expiratory Phase, Rhonchi. absent: Accessory Muscle Use, Rales, Wheezes - Cardiovascular Exam Cardiovascular Exam: REGULAR RHYTHM, +S1, +S2. absent: JVD - GI/Abdominal Exam GI & Abdominal Exam: Soft, Normal Bowel Sounds. 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 Patient was given steroids and multiple breathing treatments in the field. WBC elevated 11.7, low grade fever, and CXR shows patchy infiltrates, can not exclude pneumonia R mid-lower lung bird. +rhonchi on exam,Patient admitted with diagnosis of pneumonia , COPD / CHF exacerbation , started on Duonebs, Solumedrol IV, rocephin, Zithromax and O2 via NC and lasix. At present improving .His Coumadin was held due to Thrombocytopenia . 1.Multifocal Pneumonia RML, RLL CXR showed patchy infilatrates on admission WBC trended down, afebrile Continue Azithromycin and Ceftriaxone Continue Xopenex treatments 2.Emphysema, COPD exacerbation improving on 3 L O2 via NC at home [place] Solumedrol to 40mg Q12 Continue 3.Xopenex treatments cont advair and spiriva 3.CHF exacerbation Rales and edema improving Change Lasix to Po , 40 mg Po BID Monitor renal function - Cr 0.9 today, mild azotemia, monitor. ECHO showed EF 65-70 % Patient likely has LV dysfunction due to acute on chronic hypoxic respiratory failure, causing ischemic cardiomyopathy and pulmonary vascular congestion 4.Thrombocytopenia unclear etiology Platelets 55 today, 76 on manual count yesterday, 88 today on manual count monitor Hematology and Oncology Consult: Dr. Jeremías Arias appreciated D/c Coumadin. may restart once plt > 100 K Xarelto not indicated in patients with prosthetic valve 5.Melena- resolved One episode 03/03/17 H& H stable and occult blood test was negative Coumadin on hold likely follow up with GI as an outpatient. 6.AFIB rate controlled hold Coumadin until plt count above 100 K HOLD today, however for thrombocytopenia 88 manual count Can restart when platelets count > 100 7.CAD with Valve replacement Cardiomegaly continue lasix hold plavix 8.Hypothyroid continue synthroid 9.Obesity with EVELYN BMI 40.4 Counseled on weight loss 10.DVT prophylaxis SCD hold anticoagulation due to thrombocytopenia 11. Anemia Most likely anemia of chronic disease Continue Ferrous sulfate
[2017-03-04] MEDS: methylPREDNISolone 40 MG in Sodium Chloride 0.9% 50 ML IVPB SCH (21:17)
[2017-03-05] MEDS: Fluticasone-Salmeterol 250-50mcg Diskus IH SCH ×2 (02:32→04:46)
[2017-03-05 04:58] VITALS: O2SAT 94
[2017-03-05 05:23] LABS: HEMATOCRIT 31.2 % (35.0-51.0); MEAN CELL VOLUME 88.3 fl (80.0-94.0); MEAN CORPUSCULAR HEMOGLOBIN 29.6 pg (27.0-31.0); MEAN CORPUSCULAR HGB CONC 33.5 g/dL (33.0-37.0); RED CELL DISTRIBUTION WIDTH 14.9 % (11.5-14.5); WHITE BLOOD COUNT 6.7 K/uL (4.8-10.8)
[2017-03-05 05:36] LABS: BLOOD UREA NITROGEN 33 mg/dl (9-20); CALCIUM 8.1 mg/dL (8.4-10.2); CARBON DIOXIDE 39 mmol/L (22-30); CHLORIDE 94 mmol/L (98-107); GFR AFRICAN-AMERICAN > 60; GLUCOSE,RANDOM 150 mg/dL (75-110); POTASSIUM 4.3 MMOL/L (3.6-5.0); SODIUM 142 mmol/l (132-148)
[2017-03-05] MEDS: Levothyroxine 25 MCG TAB PO SCH (06:11)
[2017-03-05 07:54] VITALS: BP 129/50; PULSE 76; RESP 18; TEMP 97.8
--- NOTE | 2017-03-05 08:54 | CP.PCM.DIS ---
Provider - Provider Date of Admission: 03/01/17 14:27 Attending physician: Ramonita Colin DO Primary care physician: Dr Santo Consults: Hematology : Dr Jeremías Arias Time Spent in preparation of Discharge (in minutes): 30 Diagnosis - Discharge Diagnosis (1) Acute on chronic systolic CHF (congestive heart failure) Status: Acute (2) COPD exacerbation Status: Acute (3) Pneumonia Status: Acute (4) Chronic atrial fibrillation Status: Chronic (5) Hypothyroidism Status: Chronic (6) Obesity, morbid, BMI 40.0-49.9 Status: Chronic (7) Melena Status: Ruled-out Hospital Course - Lab Results Lab Results: Micro Results 03/01/17 15:30 Blood-Venous Blood Culture - Preliminary NO GROWTH AFTER 3 DAYS 03/01/17 14:55 Blood-Venous Blood Culture - Preliminary NO GROWTH AFTER 3 DAYS Most Recent Lab Values WBC 6.7 K/uL (4.8-10.8) 03/05/17 05:00 RBC 3.53 Mil/uL (4.40-5.90) L 03/05/17 05:00 Hgb 10.4 g/dL (12.0-18.0) L 03/05/17 05:00 Hct 31.2 % (35.0-51.0) L 03/05/17 05:00 MCV 88.3 fl (80.0-94.0) 03/05/17 05:00 MCH 29.6 pg (27.0-31.0) 03/05/17 05:00 MCHC 33.5 g/dL (33.0-37.0) 03/05/17 05:00 RDW 14.9 % (11.5-14.5) H 03/05/17 05:00 Plt Count 99 K/uL (130-400) L D 03/05/17 05:00 Manual Plt Count 88 K/uL (130-400) L 03/03/17 10:42 MPV 7.8 fl (7.2-11.7) 03/03/17 10:42 Neut % (Auto) 90.9 % (50.0-75.0) H 03/03/17 10:42 Lymph % (Auto) 6.1 % (20.0-40.0) L 03/03/17 10:42 Ransom % (Auto) 2.9 % (0.0-10.0) 03/03/17 10:42 Eos % (Auto) 0.0 % (0.0-4.0) 03/03/17 10:42 Baso % (Auto) 0.1 % (0.0-2.0) 03/03/17 10:42 Neut # 5.2 K/uL (1.8-7.0) 03/03/17 10:42 Lymph # 0.3 K/uL (1.0-4.3) L 03/03/17 10:42 Ransom # 0.2 K/uL (0.0-0.8) 03/03/17 10:42 Eos # 0.0 K/uL (0.0-0.7) 03/03/17 10:42 Baso # 0.0 K/uL (0.0-0.2) 03/03/17 10:42 Neutrophils % (Manual) 92 % (42-75) H 03/03/17 10:42 Band Neutrophils % 1 % (0-2) 03/03/17 10:42 Lymphocytes % (Manual) 5 % (20-50) L 03/03/17 10:42 Monocytes % (Manual) 2 % (0-10) 03/03/17 10:42 Myelocytes % 1 % (0-0) H 03/02/17 05:20 Toxic Granulation Present 03/01/17 12:28 Platelet Estimate Decreased (NORMAL) L 03/03/17 10:42 Large Platelets Present 03/03/17 10:42 Giant Platelets Present 03/01/17 12:28 Hypochromasia (manual) Slight 03/03/17 10:42 Anisocytosis (manual) Slight 03/02/17 05:20 Ovalocytes Slight 03/02/17 05:20 PT 12.8 Seconds (9.8-13.1) 03/02/17 05:20 INR 1.1 (0.9-1.2) 03/02/17 05:20 APTT 30.1 Seconds (25.6-37.1) 03/01/17 15:00 Sodium 142 mmol/l (132-148) 03/05/17 05:00 Potassium 4.3 MMOL/L (3.6-5.0) 03/05/17 05:00 Chloride 94 mmol/L (98-107) L 03/05/17 05:00 Carbon Dioxide 39 mmol/L (22-30) H 03/05/17 05:00 Anion Gap 13 (10-20) 03/05/17 05:00 BUN 33 mg/dl (9-20) H 03/05/17 05:00 Creatinine 0.8 mg/dL (0.8-1.5) 03/05/17 05:00 Est GFR ( Amer) > 60 03/05/17 05:00 Est GFR (Non-Af Amer) > 60 03/05/17 05:00 Random Glucose 150 mg/dL (75-110) H 03/05/17 05:00 Calcium 8.1 mg/dL (8.4-10.2) L 03/05/17 05:00 Total Bilirubin 0.8 mg/dl (0.2-1.3) 03/01/17 12:28 AST 52 U/L (17-59) 03/01/17 12:28 ALT 56 U/L (21-72) 03/01/17 12:28 Alkaline Phosphatase 25 U/L (38-126) L 03/01/17 12:28 Troponin I 0.0820 ng/mL (0.00-0.120) 03/01/17 12:28 Total Protein 7.0 G/DL (6.3-8.2) 03/01/17 12:28 Albumin 4.1 g/dL (3.5-5.0) 03/01/17 12:28 Globulin 2.9 gm/dL (2.2-3.9) 03/01/17 12:28 Albumin/Globulin Ratio 1.4 (1.0-2.1) 03/01/17 12:28 Stool Occult Blood Negative (NEGATIVE) 03/03/17 16:40 - Hospital Course Hospital Course: 81 year old male with PMH afib on coumadin, CAD, s/p bovine transcatheter valve implant, hypertension, 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 Patient was given steroids and multiple breathing treatments in the field. WBC elevated 11.7, low grade fever, and CXR shows patchy infiltrates, can not exclude pneumonia R mid-lower lung bird. +rhonchi on exam. Patient admitted with diagnosis of pneumonia , COPD / CHF exacerbation , started on Duonebs, Solumedrol IV, rocephin, Zithromax and O2 via NC and lasix. At present improving .His Coumadin was held due to Thrombocytopenia . Pt refused TCU nor STEVEN placement. 1.Multifocal Pneumonia RML, RLL CXR showed patchy infilatrates on admission WBC trended down, afebrile Received Azithromycin and Ceftriaxone- will d/c pt on PO Azithro and Cefdinir 2.Emphysema, COPD exacerbation improving on 3 L O2 via NC at home Taper Solumedrol to 40mg Q12 - will change to PO Medrol Xopenex treatments cont advair and spiriva 3.CHF exacerbation, acute on chronic diastolic dysfunction Rales and edema improved Change Lasix to Po Monitor renal function - Cr 0.9 today, mild azotemia, monitor. ECHO showed EF 65-70 % 4.Thrombocytopenia unclear etiology pLatelets drop to 55 , now up to 99 Hematology and Oncology Consult: Dr. Jeremías Arias appreciated D/c Coumadin. may restart once plt > 100 K - 5. Dark Stool unlikely Melena One episode 03/03/17 H& H stable and occult blood test was negative Coumadin on hold likely follow up with GI as an outpatient. 6.A FIB , chronic rate controlled hold Coumadin until plt count above 100 K Pt to ff up with Dr Lowry Wednesday and have rpt CBC- discussed with Dr Santo 7. History of Bioprosthetic Valve Replacement 8.Hypothyroid continue synthroid 9.Obesity with EVELYN BMI 40.4 Counseled on weight loss 10.DVT prophylaxis SCD hold anticoagulation due to thrombocytopenia 11. Anemia Most likely anemia of chronic disease Continue Ferrous sulfate Discharge Exam - Head Exam Head Exam: ATRAUMATIC, NORMAL INSPECTION, NORMOCEPHALIC - Eye Exam Eye Exam: EOMI, Normal appearance Pupil Exam: NORMAL ACCOMODATION - ENT Exam ENT Exam: Mucous Membranes Moist, Normal External Ear Exam - Neck Exam Neck exam: Full Rom - Respiratory Exam Respiratory Exam: Rhonchi, NORMAL BREATHING PATTERN. absent: Accessory Muscle Use, Wheezes, Respiratory Distress - Cardiovascular Exam Cardiovascular Exam: REGULAR RHYTHM, +S1, +S2 - GI/Abdominal Exam GI & Abdominal Exam: Normal Bowel Sounds, Soft. absent: Tenderness - Extremities Exam Extremities exam: normal capillary refill, pedal pulses present Additional comments: no calf tenderness minimal bipedal edema - Back Exam Back exam: absent: CVA tenderness (L), CVA tenderness (R) - Neurological Exam Neurological exam: Alert, Oriented x3 - Psychiatric Exam Psychiatric exam: Normal Affect, Normal Mood - Skin Skin Exam: Dry, Normal Color, Warm Discharge Plan - Discharge Medications Prescriptions: Azithromycin 250 mg PO DAILY #5 tablet Cefdinir [Omnicef] 300 mg PO BID #10 cap Methylprednisolone [Medrol Dose Pack (21 tabs)] 4 mg PO ASDIR #21 mg - Follow Up Plan Condition: GOOD Disposition: HOME/ ROUTINE Instructions: Warfarin (By mouth), COPD (Chronic Obstructive Pulmonary Disease ) (DC), Pneumonia (DC) Additional Instructions: ff up with Dr Lowry on Wednesday- need to rpt CBC Restart Coumadin once Platelet is over 100 Referrals: Ayaka Santo MD [Family Provider] - Clinical Quality Measures - CQM - Heart Failure Ejection Fraction: 40 % or Greater Left Ventricular Function to be assessed after discharge: Yes ANTHONY Inhibitor Prescribed: No Contraindication/Reason for not providing: low BP Beta-Joseph Prescribed: None Contraindication/Reason for not providing: pt has severe COPD Angiotensin II Receptor Joseph Prescribed: No Contraindication/Reason for not providing: low BP AnticoagulationTherapy for Atrial Fibrillation/Atrialflutter: No Contraindication/Reason for not providing: thrombocytopenia Aldosterone Antagonist Prescribed: No Contraindication/Reason for not providing: low BP Hydralazine Nitrate Prescribed: No Contraindication/Reason for not providing: low BP Implantable Cardioverter Defibrillator Therapy: No Contraindication/Reason for not providing: not indicated Cardiac Resynchronization Therapy Prescribed: No Contraindication/Reason for not providing: indicated Will be discharged to: Home Follow Up Date (must be within 7 days from discharge): 03/08/17 Follow Up Time: 09:00 - Date & Time of Discharge Summary Date of Discharge Summary: 03/05/17 Time of Discharge Summary: 12:52
--- NOTE | 2017-03-05 09:04 | CARD ---
APPROVED REPORT EKG Measurement Heart [id number] IN [id number] [id number] <Conclusion> Normal sinus rhythm Right bundle branch block Possible Inferior infarct, age undetermined Abnormal ECG
[2017-03-05] MEDS ORDERED: Cefdinir 300 MG CAP PO ONE (09:31)
[2017-03-05] MEDS: Tiotropium 18 mcg Cap For Inhalation IH SCH (09:32)
--- NOTE | 2017-03-05 10:13 | CP.PCM.PN ---
Subjective - Date & Time of Evaluation Date of Evaluation: 03/05/17 Time of Evaluation: 10:13 - Subjective Subjective: Pt is afebrile and his platelet count today is 99k (not manual). I feel he can be restarted on the anticogulant. Objective - Vital Signs/Intake and Output Vital Signs (last 24 hours): Temp Pulse Resp BP Pulse Ox 97.8 F 76 18 129/50 L 94 L 03/05/17 07:53 03/05/17 07:53 03/05/17 07:53 03/05/17 07:53 03/05/17 07:53 - Medications Medications: Current Medications Azithromycin (Zithromax) 250 mg PO ONCE ONE Stop: 03/06/17 09:33 Camphor/Menthol (Bengay) 1 applic TOP Q6H PRN PRN Reason: Pain, moderate (4-7) Docusate Sodium (Colace) 100 mg PO BID [facility] Last Admin: 03/05/17 09:30 Dose: 100 mg Ferrous Sulfate (Feosol) 325 mg PO TID [facility] Last Admin: 03/05/17 09:30 Dose: 325 mg Furosemide (Lasix) 40 mg PO DAILY [facility] Last Admin: 03/02/17 08:54 Dose: 40 mg Azithromycin 500 mg/ Sodium (Chloride) 250 mls @ 250 mls/hr IVPB DAILY [facility] Last Admin: 03/04/17 11:51 Dose: 250 mls/hr Ceftriaxone Sodium 1 gm/ (Sodium Chloride) 100 mls @ 100 mls/hr IVPB DAILY [facility] Last Admin: 03/04/17 09:48 Dose: 100 mls/hr Methylprednisolone 40 mg/ (Sodium Chloride) 50 mls @ 100 mls/hr IVPB Q12 [facility] Last Admin: 03/04/17 21:17 Dose: 100 mls/hr Levalbuterol HCl (Xopenex) 1.25 mg INH RQ8 PRN PRN Reason: Shortness of Breath Last Admin: 03/04/17 04:20 Dose: 1.25 mg Levothyroxine Sodium (Synthroid) 25 mcg PO DAILY@0630 [facility] Last Admin: 03/05/17 06:11 Dose: 25 mcg Fluticasone/Salmeterol (Advair Diskus 250/50) 1 puff IH Q12H [facility] Last Admin: 03/05/17 04:46 Dose: 1 puff Tiotropium [place] (Spiriva) 18 mcg IH DAILY [facility] Last Admin: 03/05/17 09:32 Dose: 18 mcg - Labs Labs: 03/05/17 05:00 03/05/17 05:00 PT 12.8 Seconds (9.8-13.1) 03/02/17 05:20 INR 1.1 (0.9-1.2) 03/02/17 05:20 APTT 30.1 Seconds (25.6-37.1) 03/01/17 15:00
[2017-03-05] MEDS: Azithromycin 500 MG in Sodium Chloride 0.9% 250 ML IVPB SCH (11:07)
[2017-03-05] MEDS: methylPREDNISolone 40 MG in Sodium Chloride 0.9% 50 ML IVPB SCH (11:08)
== END 2017-03-05 11:48 | disposition home health service (06) | DRG 190 ==
LOC: H.ER 09:48 → H.ERHOLD 14:27 → H.TEL 18:47
PROVIDERS: ADMIT Student in an Organized Health Care Education/Training Program; ATTEND Student in an Organized Health Care Education/Training Program
PROC: 3E0F73Z Introduction of Anti-inflammatory into Respiratory Tract, Via Natural or Artificial Opening (ICD-10-PCS; principal; 2017-03-01)
DX: J44.0 Chronic obstructive pulmonary disease with (acute) lower respiratory infection (principal); J18.9 Pneumonia, unspecified organism; J96.21 Acute and chronic respiratory failure with hypoxia; I50.33 Acute on chronic diastolic (congestive) heart failure; D69.59 Other secondary thrombocytopenia; Z99.81 Dependence on supplemental oxygen; Z68.41 Body mass index [BMI] 40.0-44.9, adult; I11.0 Hypertensive heart disease with heart failure; I48.2 Chronic atrial fibrillation; E66.01 Morbid (severe) obesity due to excess calories; K92.1 Melena; J44.1 Chronic obstructive pulmonary disease with (acute) exacerbation; D63.8 Anemia in other chronic diseases classified elsewhere; E03.9 Hypothyroidism, unspecified; E78.5 Hyperlipidemia, unspecified; G47.33 Obstructive sleep apnea (adult) (pediatric); I25.10 Atherosclerotic heart disease of native coronary artery without angina pectoris; J45.909 Unspecified asthma, uncomplicated; I25.5 Ischemic cardiomyopathy; Z95.2 Presence of prosthetic heart valve; M19.90 Unspecified osteoarthritis, unspecified site; Z79.01 Long term (current) use of anticoagulants; Z79.51 Long term (current) use of inhaled steroids; Z87.891 Personal history of nicotine dependence

== ENCOUNTER 2017-05-11 10:39 | Inpatient (IN) | payer MEDICARE, MEDICAID ==
[2017-05-11 10:46] VITALS: BMI 40.5
[2017-05-11] MEDS ORDERED: Albuterol-Ipratrop 3 mg / 0.5 (3 ml) UD INH STA ×2 (11:00→11:32)
[2017-05-11] MEDS ORDERED: Albuterol-Ipratrop 3 mg / 0.5 (3 ml) UD IH STA (11:00)
[2017-05-11] MEDS ORDERED: Sodium Chloride 0.9% 500 ML IV SCH (11:00)
[2017-05-11] MEDS ORDERED: Albuterol 0.083% Inhal Sol (2.5 mg/3 mL) UD INH STA (11:01)
--- NOTE | 2017-05-11 11:06 | ED PDOC ---
HPI: SOB/CHF/COPD Time Seen by Provider: 05/11/17 10:46 Chief Complaint (Nursing): Shortness Of Breath Chief Complaint (Provider): dyspnea History Per: Patient History/Exam Limitations: no limitations Onset/Duration Of Symptoms: Days (Yesterday) Current Symptoms Are (Timing): Still Present Additional Complaint(s): Pt. with dyspnea since yesterday. Has copd and feels like that is causing the issue. No leg pain, weakness, fever. Has cough and white phlegm. No back pain , chest pain. No numbness, tingles, eva pain. Dr. Franz is pcp. 93% with O2 nasal. Past Medical History Vital Signs: Last Vital Signs Temp 98.2 F 05/11/17 10:53 Pulse 74 05/11/17 10:53 Resp 18 05/11/17 10:53 BP 103/56 L 05/11/17 10:53 Pulse Ox 95 05/11/17 11:14 - Medical History PMH: Arthritis, Asthma, Atrial Fibrillation, CAD, CHF, Emphysema, HTN Denies: HIV, Chronic Kidney Disease - Family History Family History: States: Unknown Family Hx - Social History Current smoker - smoking cessation education provided: No Alcohol: None Drugs: Denies - Home Medications Home Medications: Ambulatory Orders Medication Instructions Recorded Albuterol Sulfate [Proair Hfa] 2 puff IH Q4H PRN 08/12/16 Docusate [Colace] 100 mg PO BID 08/12/16 Ferrous Sulfate [Feosol] 325 mg PO TID 08/12/16 Fluticasone/Salmeterol 250/50 1 puff IH Q12H 08/12/16 [Advair Diskus 250/50] Furosemide [Lasix] 40 mg PO DAILY 08/12/16 Levothyroxine [Synthroid] 25 mcg PO DAILY 08/12/16 Nitroglycerin [Nitrostat] 0.4 mg SL Q5MIN PRN 08/12/16 Rosuvastatin Calcium [Crestor] 40 mg PO HS 08/12/16 Tiotropium [Spiriva] 18 mcg IH DAILY 08/12/16 Acetaminophen [Tylenol 325mg tab] 325 mg PO Q6H PRN 03/01/17 Mv,Min10/Folic Acid/D3/Ala/Lut 1 tab PO DAILY 06/05/17 [Strovite One Caplet] Azithromycin 250 mg PO DAILY #5 tablet 03/05/17 Cefdinir [Omnicef] 300 mg PO BID #10 cap 03/05/17 Menthol/Methyl Salicylate [BenGay] 1 applic TOP Q6H PRN 03/05/17 Methylprednisolone [Medrol Dose 4 mg PO ASDIR #21 mg 03/05/17 Pack (21 tabs)] - Allergies Allergies/Adverse Reactions: Allergies Allergy/AdvReac Type Severity Reaction Status Date / Time No Known Allergies Allergy Verified 03/01/17 10:03 Review of Systems ROS Statement: Except As Marked, All Systems Reviewed And Found Negative Respiratory: Positive for: Cough, Shortness of Breath, SOB with Exertion, Sputum Physical Exam - Reviewed Nursing Documentation Reviewed: Yes Vital Signs Reviewed: Yes - Physical Exam Appears: Positive for: Uncomfortable Head Exam: Positive for: ATRAUMATIC, NORMAL INSPECTION, NORMOCEPHALIC Skin: Positive for: Normal Color, Warm, DRY Eye Exam: Positive for: EOMI, Normal appearance, PERRL ENT: Positive for: Normal ENT Inspection Neck: Positive for: Normal, Painless ROM Cardiovascular/Chest: Positive for: Regular Rate, Rhythm Respiratory: Positive for: Decreased Breath Sounds, Wheezing (mild b/l). Negative for: Accessory Muscle Use Gastrointestinal/Abdominal: Positive for: Normal Exam, Bowel Sounds, Soft. Negative for: Tenderness Back: Positive for: Normal Inspection. Negative for: L CVA Tenderness, R CVA Tenderness Extremity: Positive for: Normal ROM. Negative for: Tenderness, Pedal Edema Neurologic/Psych: Positive for: Alert, precision market insights II-XII, Oriented. Negative for: Motor/Sensory Deficits - Laboratory Results Result Diagrams: 05/11/17 11:05 05/11/17 11:05 Interpretation Of Abn Labs: 6 hg - ECG ECG Rhythm: Positive for: Sinus Rhythm, Right Bundle Branch Block O2 Sat by Pulse Oximetry: 95 - Radiology X-Ray: Read By Radiologist X-Ray Interpretation: No Acute Disease - Progress ED Course And Treament: 1200: Stable. AAOx3. HG low. No bloody vomiting or bloody stool. Will need transfusion. 1215: Stable. Spoke with Dr. Flores. Will admit. Tele. Dr. Franz is pt. pcp. - Critical Care Total Time (In Min): 30 Documented Critical Care: Time excludes all time spent performint seperately billable procedures Disposition - Clinical Impression Clinical Impression: Anemia, COPD exacerbation - Patient ED Disposition Is Patient to be Admitted: Yes Counseled Patient/Family Regarding: Studies Performed, Diagnosis - Disposition Disposition Time: 12:15 Condition: FAIR - Pt Status Changed To: Hospital Disposition Of: Inpatient - Admit Certification Admit to Inpatient:: After my assessment, the patient will require hospitalization for at least two midnights. This is because of the severity of symptoms shown, intensity of services needed, and/or the medical risk in this patient being treated as an outpatient. - POA Present On Arrival: None
--- NOTE | 2017-05-11 11:19 | RAD ---
HISTORY: Sepsis Patient COMPARISON: 03/01/2017 FINDINGS: LUNGS: There is interval improved aeration in both lungs with residual mild pulmonary venous congestion. There is bibasilar atelectasis. PLEURA: There are probable small pleural effusions, no pneumothorax apparent. CARDIOVASCULAR: The heart is normal in size. Atherosclerotic aortic arch calcifications are present. OSSEOUS STRUCTURES: No significant abnormalities. VISUALIZED UPPER ABDOMEN: Normal. OTHER FINDINGS: None. IMPRESSION: Interval improved aeration in both lungs with residual mild pulmonary venous congestion. Bibasilar atelectasis and suspect small pleural effusions.
[2017-05-11] MEDS ORDERED: Albuterol-Ipratrop 3 mg / 0.5 (3 ml) UD ONE (11:32)
[2017-05-11 11:33] LABS: ABG ALLEN TEST YES; ARTERIAL BLOOD GAS HCO3 35.3 mmol/L (21-28); ARTERIAL BLOOD GAS O2 SAT 99.7 % (95-98); ARTERIAL BLOOD GAS PCO2 54 mm/Hg (35-45); ARTERIAL BLOOD GAS PH 7.47 (7.35-7.45); ARTERIAL BLOOD GAS PO2 91 mm/Hg (80-100)
[2017-05-11 11:33] LABS: ALB/GLOB RATIO 1.7 (1.0-2.1); ALBUMIN 3.4 g/dL (3.5-5.0); ALT/SGPT 41 U/L (21-72); AST/SGOT 27 U/L (17-59); BLOOD UREA NITROGEN 28 mg/dl (9-20); CALCIUM 8.5 mg/dL (8.4-10.2); GFR AFRICAN-AMERICAN > 60; GFR NON-AFRICAN AMERICAN > 60
[2017-05-11 11:38] LABS: BASO % 0.4 % (0.0-2.0); LYMPH # 0.7 K/uL (1.0-4.3); LYMPH % 12.1 % (20.0-40.0); MEAN CELL VOLUME 88.2 fl (80.0-94.0); MEAN CORPUSCULAR HGB CONC 35.2 g/dL (33.0-37.0); MEAN PLATELET VOLUME 7.5 fl (7.2-11.7); MONO # 0.4 K/uL (0.0-0.8); MONO % 8.1 % (0.0-10.0); NEUT # 4.3 K/uL (1.8-7.0); NEUT % 79.4 % (50.0-75.0); NRBC % 0.5 % (0.0-0.0); PLATELET COUNT 107 K/uL (130-400); RBC 1.94 Mil/uL (4.40-5.90); RED CELL DISTRIBUTION WIDTH 15.2 % (11.5-14.5); WHITE BLOOD COUNT 5.4 K/uL (4.8-10.8)
[2017-05-11 11:41] LABS: INR 1.2 (0.9-1.2); PROTHROMBIN TIME 12.1 Seconds (9.8-13.1)
[2017-05-11 11:44] LABS: B-TYPE NATRIURETIC PEPTIDE 530 pg/ml (0-900)
[2017-05-11 12:39] LABS: URINE BILIRUBIN NEGATIVE (NEGATIVE); URINE BLOOD NEGATIVE (NEGATIVE); URINE CLARITY SLIGHTY-CLOUDY (Clear); URINE COLOR YELLOW (YELLOW); URINE GLUCOSE (UA) NEG (Normal); URINE LEUKOCYTE ESTERASE NEG Leu/uL (Negative); URINE NITRATE NEGATIVE (NEGATIVE); URINE PROTEIN NEGATIVE (NEGATIVE); URINE UROBILINOGEN 0.2-1.0 mg/dL (0.2-1.0)
[2017-05-11] MEDS ORDERED: Ipratropium 0.02% Inhal Soln (0.5 mg/2.5 ml) UD IH PRN (13:37)
--- NOTE | 2017-05-11 15:48 | CARD ---
APPROVED REPORT EKG Measurement Heart [id number] IL [id number] <Conclusion> Sinus rhythm with occasional premature ventricular complexes Right bundle branch block Abnormal ECG
[2017-05-11] MEDS: methylPREDNISolone 60 MG in Sodium Chloride 0.9% 50 ML IV SCH (16:45)
[2017-05-11] MEDS: Fluticasone-Salmeterol 250-50mcg Diskus IH SCH (16:48)
[2017-05-11] MEDS: Tiotropium 18 mcg Cap For Inhalation IH SCH (16:49)
--- NOTE | 2017-05-11 17:30 | CP.PCM.CON ---
History of Present Illness - History of Present Illness History of Present Illness: I was asked to see patient by the Hospitalist service. Patient is an 81 year old male with PMH HTN, hypercholesterolemia, CAD, who presents with weakness and dizziness. Symptoms began about 1 week ago. The patient describes feeling weak, and therefore presented to the ER. he was found to have a Hgb 6. He denies BRBPR or hemoptysis. Review of Systems - Constitutional Constitutional: Weakness - EENT Eyes: absent: As Per HPI, Blind Spots, Blurred Vision, Change in Vision, Decreased Night Vision, Diplopia, Discharge, Dry Eye, Exophthalmos, Floaters, Irritation, Itchy Eyes, Loss of Peripheral Vision, Pain, Photophobia, Requires Corrective Lenses, Sees Flashes, Spots in Vision, Tunnel Vision, Other Visual Disturbances, Loss of Vision, Other Ears: absent: As Per HPI, Decreased Hearing, Ear Discharge, Ear Pain, Tinnitus, Abnormal Hearing, Disequilibrium, Dizziness, Other Nose/Mouth/Throat: absent: As Per HPI, Epistaxis, Nasal Congestion, Nasal Discharge, Nasal Obstruction, Nasal Trauma, Nose Pain, Post Nasal Drip, Sinus Pain, Sinus Pressure, Bleeding Gums, Change in Voice, Dental Pain, Dry Mouth, Dysphagia, Halitosis, Hoarsness, Lip Swelling, Mouth Lesions, Mouth Pain, Odynophagia, Sore Throat, Throat Swelling, Tongue Swelling, Facial Pain, Neck Pain, Neck Mass, Other - Cardiovascular Cardiovascular: absent: As Per HPI, Acrocyanosis, Chest Pain, Chest Pain at Rest , Chest Pain with Activity, Claudication, Diaphoresis, Dyspnea, Dyspnea on Exertion, Edema, Irregular Heart Rhythm, Pain Radiating to Arm/Neck/Jaw, Leg Edema, Leg Ulcers, Lightheadedness, Orthopnea, Palpitations, Paroxysmal Nocturnal Dyspnea, Pedal Edema, Radiating Pain, Rapid Heart Rate, Slow Heart Rate, Syncope, Other - Respiratory Respiratory: Dyspnea - Gastrointestinal Gastrointestinal: absent: As Per HPI, Abdominal Pain, Belching, Bloating, Change in Bowel Habits, Change in Stool Character, Coffee Ground Emesis, Constipation, Cramping, Diarrhea, Dyspepsia, Dysphagia, Early Satiety, Excessive Flatus, Fecal Incontinence, Heartburn, Hematemesis, Hematochezia, Loose Stools, Melena, Nausea, Odynophagia, Temesmus, Vomiting, Other - Genitourinary Genitourinary: absent: As Per HPI, Change in Urinary Stream, Difficulty Urinating, Dysuria, Flank Pain, Hematuria, Pyuria, Nocturia, Urinary Incontinence, Urinary Frequency, Urinary Hesitance, Urinary Urgency, Voiding Freq/Small Amts, Freq UTI, Hx Renal/Bladder Calculi, Hx /Renal Surgery, Bladder Distension, Other - Musculoskeletal Musculoskeletal: absent: As Per HPI, Abnormal Gait, Arthralgias, Atrophy, Back Pain, Deformity, Joint Swelling, Limited Range of Motion, Loss of Height, Muscle Cramps, Muscle Weakness, Myalgias, Neck Pain, Numbness, Radiating Pain into Limb, Stiffness, Tingling, Other - Integumentary Integumentary: absent: As Per HPI, Acne, Alopecia, Bleeding Lesions, Change in Hair, Change in Nails, Change in Pigmentation, Changing Lesions, Dry Skin, Erythema, Furuncle, Hirsutism, Lesions, New Lesions, Non-Healing Lesions, Photosensitivity, Pruritus, Rash, Skin Pain, Skin Ulcer, Sores, Striae, Swelling , Unusual Bruising, Wounds, Jaundice, Other - Neurological Neurological: absent: As Per HPI, Abnormal Gait, Abnormal Hearing, Abnormal Movements, Abnormal Speech, Behavioral Changes, Burning Sensations, Confusion, Convulsions, Disequilibrium, Dizziness, Numbness, Focal Weakness, Frequent Falls , Headaches, Lack of Coordination, Loss of Vision, Memory Loss, Paresthesias, Radicular Pain, Restless Legs, Sensory Deficit, Syncope, Tingling, Tremor, Vertigo, Weakness, Other Visual Disturbances, Other - Psychiatric Psychiatric: absent: As Per HPI, Abnormal Sleep Pattern, Anhedonia, Anxiety, Auditory Hallucinations, Behavioral Changes, Change in Appetite, Change in Libido, Confusion, Depression, Difficulty Concentrating, Hallucinations, Homicidal Ideation, Hopelessness, Irritability, Memory Loss, Mood Swings, Panic Attacks, Paranoia, Suicidal Ideation, Visual Hallucinations, Tactile Hallucinations, Other - Endocrine Endocrine: absent: As Per HPI, Change in Body Appearance, Change in Libido, Cold Intolorance, Deepening of Voice, Excessive Sweating, Fatigue, Flushing, Heat Intolorance, Increase in Ring/Shoe/Hat Size, Palpitations, Polydipsia, Polyphagia, Polyuria, Other - Hematologic/Lymphatic Hematologic: As Per HPI Past Patient History - Past Medical History & Family History Past Medical History?: Yes - Past Social History Smoking Status: Former Smoker - CARDIAC Hx Cardiac Disorders: Yes Hx Atrial Fibrillation: Yes Hx Congestive Heart Failure: Yes Other/Comment: valve surgery - PULMONARY Hx Respiratory Disorders: Yes Hx Asthma: Yes Hx Chronic Obstructive Pulmonary Disease (COPD): Yes Hx Emphysema: Yes - NEUROLOGICAL Hx Neurological Disorder: No - HEENT Hx HEENT Problems: No - RENAL Hx Chronic Kidney Disease: No - ENDOCRINE/METABOLIC Hx Endocrine Disorders: No - HEMATOLOGICAL/ONCOLOGICAL Hx Blood Disorders: No - INTEGUMENTARY Hx Dermatological Problems: No - MUSCULOSKELETAL/RHEUMATOLOGICAL Hx Arthritis: Yes Hx Falls: No - GASTROINTESTINAL Hx Gastrointestinal Disorders: No - GENITOURINARY/GYNECOLOGICAL Hx Genitourinary Disorders: No - PSYCHIATRIC Hx Psychophysiologic Disorder: No Hx Substance Use: No - SURGICAL HISTORY Hx Cardiac Catheterization: Yes Hx Valve Replacement: Yes (Valve surgery) - ANESTHESIA Hx Anesthesia: Yes Hx Anesthesia Reactions: No Hx Malignant Hyperthermia: No Meds Allergies/Adverse Reactions: Allergies Allergy/AdvReac Type Severity Reaction Status Date / Time No Known Allergies Allergy Verified 03/01/17 10:03 - Medications Medications: Current Medications Atorvastatin Calcium (Lipitor) 80 mg PO DAILY [facility] Docusate Sodium (Colace) 100 mg PO BID [facility] Last Admin: 05/11/17 16:47 Dose: 100 mg Ferrous Sulfate (Feosol) 325 mg PO TID [facility] Last Admin: 05/11/17 16:47 Dose: 325 mg Furosemide (Lasix) 40 mg PO DAILY [facility] Last Admin: 05/11/17 16:47 Dose: 40 mg Methylprednisolone 60 mg/ (Sodium Chloride) 50.96 mls @ 101.92 mls/hr IV Q8 [facility] Last Admin: 05/11/17 16:45 Dose: 101.92 mls/hr Ipratropium [place]ott (Atrovent) 0.5 mg IH RQ6 PRN PRN Reason: Shortness of Breath Levothyroxine Sodium (Synthroid) 25 mcg PO DAILY@0630 [facility] Multivitamins/Minerals (Therapeutic-M Tab) 1 tab PO HS [facility] Nitroglycerin (Nitrostat Sl Tab) 0.4 mg SL Q5MIN PRN PRN Reason: chest pain Fluticasone/Salmeterol (Advair Diskus 250/50) 1 puff IH Q12H [facility] Last Admin: 05/11/17 16:48 Dose: 1 puff Tiotropium P[place]ott (Spiriva) 18 mcg IH DAILY [facility] Last Admin: 05/11/17 16:49 Dose: 18 mcg Physical Exam - Constitutional Appears: Non-toxic - Head Exam Head Exam: NORMAL INSPECTION - Eye Exam Eye Exam: Normal appearance - ENT Exam ENT Exam: Mucous Membranes Dry - Neck Exam Neck exam: Positive for: Full Rom - Respiratory Exam Respiratory Exam: Decreased Breath Sounds - Cardiovascular Exam Cardiovascular Exam: REGULAR RHYTHM, Systolic Murmur - GI/Abdominal Exam GI & Abdominal Exam: Normal Bowel Sounds - Rectal Exam Rectal Exam: Deferred - Extremities Exam Extremities exam: Positive for: pedal edema - Back Exam Back exam: NORMAL INSPECTION - Neurological Exam Neurological exam: Alert, Oriented x3 - Psychiatric Exam Psychiatric exam: Normal Affect - Skin Skin Exam: Normal Color Results - Vital Signs Recent Vital Signs: Last Vital Signs Temp 98.2 F 05/11/17 16:33 Pulse 59 L 05/11/17 16:33 Resp 14 05/11/17 16:33 BP 148/86 05/11/17 16:47 Pulse Ox 98 05/11/17 16:33 - Labs Result Diagrams: 05/11/17 11:05 05/11/17 11:05 - EKG Data EKG Interpreted by: Myself Assessment & Plan (1) Anemia Assessment and Plan: will need transfusion to Hgb 10. Status: Acute (2) HTN (hypertension) Assessment and Plan: blood pressure control Status: Acute (3) Aortic stenosis Assessment and Plan: patient has been managed conservatively. no current indication for surgery Status: Acute (4) Paroxysmal a-fib Assessment and Plan: currently in sinus rhythm. not on anticoagulation. will hold. Status: Chronic
[2017-05-11 17:36] LABS: BILIRUBIN,DIRECT 0.3 mg/ml (0.0-0.4)
[2017-05-11 19:46] LABS: BANDS 3 % (0-2); LYMPHOCYTE 8 % (20-50); MONOCYTE 8 % (0-10); NEUTROPHIL 80 % (42-75); PLASMACYTES 1 (0-0); PLATELET ESTIMATE SLIGHTLY DECREASED (NORMAL); TOTAL CELLS COUNTED 100
[2017-05-11 19:48] LABS: ANISOCYTOSIS MODERATE; HYPOCHROMIC SLIGHT; LARGE PLATELETS PRESENT; MICROCYTOSIS SLIGHT; OVALOCYTES MODERATE; TEARDROP CELLS SLIGHT
[2017-05-11 19:56] LABS: IRON 62 ug/dL (49-181)
[2017-05-11 20:05] LABS: % IRON SATURATION 21 % (20-55); TOTAL IRON BINDING CAPACITY 291 ug/dL (250-450)
[2017-05-11] MEDS: Multivitamin With Minerals Tab PO SCH (21:16)
--- NOTE | 2017-05-11 21:40 | CP.PCM.HP ---
History of Present Illness - History of Present Illness History of Present Illness: Hospitalist Admission H&P (Patient was seen at 1 PM 05/11/17) PMD: Dr. Franz CODE Status: FULL CODE. NO living will/advance directive. 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 He states that last night 05/10/17 he started to experience difficulty breathing with shortness of breath. He used his albuterol nebulizer and this improved his symptoms and allowed him to go to sleep. After he woke up this morning and started to get ready for his day, his shortness of breath returned, along with some blurriness of vision. He decided to sit in front of a fan and A/ C and stated that the cool air helped to alleviate his symptoms. As he was feeling better he went to [facility] where after breakfast he started to get SOB again along with coughing that was producing white phlegm. Because of this an ambulance was called and patient was brought to the ER here. Please note that patient was admitted here from 03/01/17 through 03/05/17 for treatment of RML/RLL Pneumonia and COPD Exacerbation. Currently upon FULL ROS he states that his SOB and Dyspnea although still present are much better than when he got to the ER. 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, Obesity, HLD, Hypothyroidism, EVELYN, Pneumonia, Thrombocytopenia PSHx: Denies ALL: Denies Medications: Please see medical reconciliation list which was completed Social: Lives alone, NO tobacco, NO alcohol, NO illicit drugs Present on Admission - Present on Admission Any Indicators Present on Admission: Yes History of DVT/PE: No History of Uncontrolled Diabetes: No Urinary Catheter: No Decubitus Ulcer Present: No Review of Systems - Review of Systems Review of Systems: Please see above Past Patient History - Past Medical History & Family History Past Medical History?: Yes Pertinent Family History: Please see above - Past Social History Smoking Status: Former Smoker - CARDIAC Hx Cardiac Disorders: Yes Hx Atrial Fibrillation: Yes Hx Congestive Heart Failure: Yes Other/Comment: valve surgery - PULMONARY Hx Respiratory Disorders: Yes Hx Asthma: Yes Hx Chronic Obstructive Pulmonary Disease (COPD): Yes Hx Emphysema: Yes - NEUROLOGICAL Hx Neurological Disorder: No - HEENT Hx HEENT Problems: No - RENAL Hx Chronic Kidney Disease: No - ENDOCRINE/METABOLIC Hx Endocrine Disorders: No - HEMATOLOGICAL/ONCOLOGICAL Hx Blood Disorders: No - INTEGUMENTARY Hx Dermatological Problems: No - MUSCULOSKELETAL/RHEUMATOLOGICAL Hx Arthritis: Yes Hx Falls: No - GASTROINTESTINAL Hx Gastrointestinal Disorders: No - GENITOURINARY/GYNECOLOGICAL Hx Genitourinary Disorders: No - PSYCHIATRIC Hx Psychophysiologic Disorder: No Hx Substance Use: No - SURGICAL HISTORY Hx Cardiac Catheterization: Yes Hx Valve Replacement: Yes (Valve surgery) - ANESTHESIA Hx Anesthesia: Yes Hx Anesthesia Reactions: No Hx Malignant Hyperthermia: No Meds Allergies/Adverse Reactions: Allergies Allergy/AdvReac Type Severity Reaction Status Date / Time No Known Allergies Allergy Verified 03/01/17 10:03 Physical Exam - Constitutional Appears: Non-toxic, No Acute Distress - Head Exam Head Exam: ATRAUMATIC, NORMAL INSPECTION, NORMOCEPHALIC - Eye Exam Eye Exam: EOMI, Normal appearance, PERRL Pupil Exam: NORMAL ACCOMODATION, PERRL - ENT Exam ENT Exam: Mucous Membranes Moist, Normal Exam, Normal External Ear Exam, Normal Oropharynx - Neck Exam Neck exam: Positive for: Normal Inspection - Respiratory Exam Additional comments: CTA B/L NO R/R/W Speaking in full sentences NO accessory muscles of respiration use - Cardiovascular Exam Cardiovascular Exam: +S1, +S2, Systolic Murmur Additional comments: Systolic Ejection Murmur heard loudest in the Right Second Intercostal Space - GI/Abdominal Exam Additional comments: BSx4, Soft, Central Obesity, Liver and Spleen could not be palpated because of the obesity, NO guarding/rebound tenderness - Extremities Exam Additional comments: Pulses are strong equal NO cyanosis Capillary Refill is 2 seconds 1+ Pitting Edema from feet to about 1/2 of the bilateral tibia Chronic Venous Isufficiency brown discoloration from feet to 1/3 of the bilateral tibia - Neurological Exam Neurological exam: Alert, CN II-XII Intact, Oriented x3 - Psychiatric Exam Psychiatric exam: Normal Affect, Normal Mood Results - Vital Signs Recent Vital Signs: Last Vital Signs Temp 98.1 F 05/11/17 20:19 Pulse 69 05/11/17 20:19 Resp 16 05/11/17 20:19 BP 128/64 05/11/17 20:19 Pulse Ox 97 05/11/17 20:19 - Labs Result Diagrams: 05/11/17 11:05 05/11/17 11:05 Labs: Laboratory Results - last 24 hr 05/11/17 05/11/17 05/11/17 17:23 17:23 17:29 Retic Count 7.5 H D-Dimer, Quantitative 339 H Iron 62 TIBC 291 % Saturation 21 Ferritin Direct Bilirubin Lactate Dehydrogenase Vitamin B12 05/11/17 18:23 Retic Count D-Dimer, Quantitative Iron TIBC % Saturation Ferritin 179.0 Direct Bilirubin 0.3 Lactate Dehydrogenase 690 H Vitamin B12 845 Assessment & Plan (1) COPD exacerbation Assessment and Plan: Solumedrol 60 mg IV Q8H Atrovent via Neb Q4H PRN SOB/Wheezing 3 L O2 via NC (this is what he uses continuously while at home) Spiriva 18 mcg PO INH 1x/day Advair 250/50 mcg 1 PO INH 2x/day Tube Handler Dr. Morgan for further recommendation: Dr. Morgan saw patient upon last admission. Patient states that he does not follow with any Tube Handler as an outpatient Chest X Ray showed interval improvement in both lungs with residual mild pulmonary venous congestion, bibasilar atelectasis, and suspected small bilateral pleural effusions Status: Acute (2) Anemia Assessment and Plan: HgB was 6 in ER Patient refused Guaiac to be performed by me despite explaining to him the importance of making sure he was not bleeding. 2 units PRBC was already ordered by ER physician F/U Stool Occult Blood Anemia workup ordered and blood work to be done PRIOR to PRBC transfusion: Iron Studies, Antiparietal Ab, Antiintrinsic Factor Ab, Homocysteine, Methylmalonic Acid, Haptoglobin, LDH, Direct Bilirubin, Vitamin B12, Folic Acid, Peripheral Blood Smear Nurse Advisor Dr. Isabell Arias for further recommendations This anemia may also contributed to patient's presenting complaints. Status: Acute (3) Chronic atrial fibrillation Assessment and Plan: He has Bovine Aortic Valve Replacement Patient explains that his PMD Dr. Franz discontinued the Coumadin that he was on roughly 2 weeks ago. INR is 1.1 He is currently rate controlled Consult his outpatient Crankshaft Balancer Dr. Abrahan Sandhu for further recommendations Status: Chronic (4) Coronary artery disease Assessment and Plan: 2D Echocardiogram 03/02/17 showed mild concentric LVH, LVSF normal, EF estimated at 65-70%, mild aortic stenosis, biprosthetic aortic valve F/U recommendations Cardiology Dr. Abrahan Sandhu Crestor 40 mg PO 1x/day Status: Chronic (5) Hypothyroidism Assessment and Plan: Levothyroxine 25 mcg PO 1x/day F/U TSH and T4 Status: Chronic (6) HTN (hypertension) Assessment and Plan: Lasix 40 mg PO 1x/day Status: Chronic (7) Hyperlipidemia Assessment and Plan: Crestor 40 mg PO 1x/day F/U Lipids Status: Chronic (8) Thrombocytopenia Assessment and Plan: Upon discharge on 03/05/17 his platelets were 99 and currently they are at 107 F/U further recommmendations from Nurse Advisor Dr. Jeremías Arias Status: Chronic (9) Prophylactic measure Assessment and Plan: Colace 100 mg PO 2x/day Protonix 40 mg PO 1x/day Holding Anticoagulation because of the Anemia MVI Heart Healthy Diet F/U morning 05/12/17 labs F/U Venous Duplex Bilateral LE F/U CT Angio Chest Status: Acute
[2017-05-11 21:43] LABS: FOLATE 10.1 ng/mL
[2017-05-11] MEDS ORDERED: Iodixanol 320 MG/ML 100 ML BOTTLE IV ONE (22:23)
[2017-05-11] MEDS ORDERED: Sodium Chloride 0.9% 50 ML IV ONE (22:24)
--- NOTE | 2017-05-11 23:45 | CT ---
EXAM: CT Angiography Chest With Intravenous Contrast CLINICAL HISTORY: 81 years old, male; Signs and symptoms; Shortness of breath; Additional info: Elevated d-dimer, SOB TECHNIQUE: Axial computed tomographic angiography images of the chest with intravenous contrast using pulmonary embolism protocol. All CT scans at this facility use one or more dose reduction techniques, viz.: automated exposure control; ma/kV adjustment per patient size (including targeted exams where dose is matched to indication; i.e. head); or iterative reconstruction technique. MIP reconstructed images were created and reviewed. Coronal and sagittal reformatted images were created and reviewed. CONTRAST: 90 mL of [id number] administered intravenously. COMPARISON: CT CHEST W/O IV CONT 01/25/2012 9:57:41 AM FINDINGS: Pulmonary arteries: No pulmonary embolism. Aorta: No thoracic aortic aneurysm. No dissection. Calcified atherosclerotic disease. Lungs: No mass. No consolidation. Centrilobular emphysema, with multiple subcentimeter cysts bilaterally. Small bilateral pleural effusions, with adjacent compressive atelectasis. Pleural spaces: No significant effusion. No pneumothorax. Heart: The heart is enlarged, without significant pericardial effusion. Prosthetic aortic valve is identified. No evidence of right heart dysfunction. Bones: No acute fracture. Lymph nodes: No pathologically enlarged lymph nodes. IMPRESSION: No pulmonary embolism. Centrilobular emphysema. Small bilateral pleural effusions, with adjacent compressive atelectasis.
[2017-05-12] MEDS: methylPREDNISolone 60 MG in Sodium Chloride 0.9% 50 ML IV SCH ×3 (01:31→16:38)
[2017-05-12] MEDS: Levothyroxine 25 MCG TAB PO SCH (05:45)
[2017-05-12] MEDS: Fluticasone-Salmeterol 250-50mcg Diskus IH SCH ×3 (05:45→16:37)
[2017-05-12 07:01] LABS: BASO % 0.2 % (0.0-2.0); LYMPH # 0.6 K/uL (1.0-4.3); LYMPH % 6.4 % (20.0-40.0); MEAN CORPUSCULAR HEMOGLOBIN 30.5 pg (27.0-31.0); MEAN CORPUSCULAR HGB CONC 34.3 g/dL (33.0-37.0); MEAN PLATELET VOLUME 7.7 fl (7.2-11.7); MONO # 0.2 K/uL (0.0-0.8); MONO % 2.5 % (0.0-10.0); NEUT # 8.4 K/uL (1.8-7.0); NEUT % 90.9 % (50.0-75.0); NRBC % 0.2 % (0.0-0.0); PLATELET COUNT 101 K/uL (130-400); RED CELL DISTRIBUTION WIDTH 15.3 % (11.5-14.5); WHITE BLOOD COUNT 9.3 K/uL (4.8-10.8)
[2017-05-12 07:04] LABS: ALBUMIN 3.3 g/dL (3.5-5.0); ALT/SGPT 30 U/L (21-72); AST/SGOT 29 U/L (17-59); BLOOD UREA NITROGEN 33 mg/dl (9-20); CALCIUM 8.6 mg/dL (8.4-10.2); GFR AFRICAN-AMERICAN > 60; GFR NON-AFRICAN AMERICAN > 60; HDL CHOLESTEROL 32 MG/DL (30-70)
[2017-05-12 07:13] LABS: ALB/GLOB RATIO 1.7 (1.0-2.1)
[2017-05-12 07:15] LABS: LDL CHOLESTEROL 48 mg/dL (0-129)
[2017-05-12 07:20] LABS: T4 5.14 ug/dl (5.5-11.0)
[2017-05-12 08:26] LABS: LYMPHOCYTE 5 % (20-50); MONOCYTE 3 % (0-10); NEUTROPHIL 92 % (42-75); TOTAL CELLS COUNTED 100
[2017-05-12 08:28] LABS: PLATELET ESTIMATE SLIGHTLY DECREASED (NORMAL)
[2017-05-12] MEDS ORDERED: Pantoprazole 40 mg EC Tab PO SCH (09:00)
[2017-05-12] MEDS: Tiotropium 18 mcg Cap For Inhalation IH SCH (10:19)
--- NOTE | 2017-05-12 11:03 | CP.PCM.CON ---
History of Present Illness - History of Present Illness History of Present Illness: This is a 81 yrs old male who I had seen about 2 months ago for anemia and thrombocytopenia. He had been admitted for copd and pneumonia, and once he got better, the counts got better as well. Now he comes in with exacerbation of COPD, shortness of breath and dizziness. in the ER his hgb was only 6.0, with normocytic indices. He does not c/o bleeding from any site. He was on coumadin for A Fib, but this was stopped recently.He is not sure why. Now he is even lower with the Hgb. the b12 and ferritin are both above the normal range, bilirubin is normal. , retic count is 7.5, haptoglobin is normal, his LDH is elevated. He is to receive 2 more units of packed cells. and pt was keen to go home.. I have explained to him that to r/ o cause of low hgb he needs a bone marrow, aspiration tp r/o MDS. He is a little leary about it. So I will approach him tomorrow re the marrow. Pt had a CAD and had a bovine transcatheter , and since then pt claims he has had a lot of problems. He also has COPD, pneumonia, hypothyroidism . He was a smoker since he was 5 yrs old, and stopped, 9 yrs ago he only drinks occasionally Past Patient History - Past Medical History & Family History Past Medical History?: Yes - Past Social History Smoking Status: Former Smoker - CARDIAC Hx Cardiac Disorders: Yes Hx Atrial Fibrillation: Yes Hx Congestive Heart Failure: Yes Other/Comment: valve surgery - PULMONARY Hx Respiratory Disorders: Yes Hx Asthma: Yes Hx Chronic Obstructive Pulmonary Disease (COPD): Yes Hx Emphysema: Yes - NEUROLOGICAL Hx Neurological Disorder: No - HEENT Hx HEENT Problems: No - RENAL Hx Chronic Kidney Disease: No - ENDOCRINE/METABOLIC Hx Endocrine Disorders: No - HEMATOLOGICAL/ONCOLOGICAL Hx Blood Disorders: No - INTEGUMENTARY Hx Dermatological Problems: No - MUSCULOSKELETAL/RHEUMATOLOGICAL Hx Arthritis: Yes Hx Falls: No - GASTROINTESTINAL Hx Gastrointestinal Disorders: No - GENITOURINARY/GYNECOLOGICAL Hx Genitourinary Disorders: No - PSYCHIATRIC Hx Psychophysiologic Disorder: No Hx Substance Use: No - SURGICAL HISTORY Hx Cardiac Catheterization: Yes Hx Valve Replacement: Yes (Valve surgery) - ANESTHESIA Hx Anesthesia: Yes Hx Anesthesia Reactions: No Hx Malignant Hyperthermia: No Meds Allergies/Adverse Reactions: Allergies Allergy/AdvReac Type Severity Reaction Status Date / Time No Known Allergies Allergy Verified 03/01/17 10:03 - Medications Medications: Current Medications Atorvastatin Calcium (Lipitor) 80 mg PO DAILY [facility] Last Admin: 05/12/17 10:18 Dose: 80 mg Docusate Sodium (Colace) 100 mg PO BID [facility] Last Admin: 05/12/17 10:17 Dose: 100 mg Ferrous Sulfate (Feosol) 325 mg PO TID [facility] Last Admin: 05/12/17 10:18 Dose: 325 mg Furosemide (Lasix) 40 mg PO DAILY [facility] Last Admin: 05/12/17 10:18 Dose: 40 mg Methylprednisolone 60 mg/ (Sodium Chloride) 50.96 mls @ 101.92 mls/hr IV Q8 [facility] Last Admin: 05/12/17 10:19 Dose: 101.92 mls/hr Ipratropium [place] (Atrovent) 0.5 mg IH RQ6 PRN PRN Reason: Shortness of Breath Levothyroxine Sodium (Synthroid) 25 mcg PO DAILY@0630 [facility] Last Admin: 05/12/17 05:45 Dose: 25 mcg Multivitamins/Minerals (Therapeutic-M Tab) 1 tab PO HS [facility] Last Admin: 05/11/17 21:16 Dose: 1 tab Nitroglycerin (Nitrostat Sl Tab) 0.4 mg SL Q5MIN PRN PRN Reason: chest pain Pantoprazole Sodium (Protonix Ec Tab) 40 mg PO DAILY [facility] Last Admin: 05/12/17 10:18 Dose: 40 mg Fluticasone/Salmeterol (Advair Diskus 250/50) 1 puff IH Q12H [facility] Last Admin: 05/12/17 05:45 Dose: 1 puff Tiotropium [place] (Spiriva) 18 mcg IH DAILY [facility] Last Admin: 05/12/17 10:19 Dose: 18 mcg Results - Vital Signs Recent Vital Signs: Last Vital Signs Temp 98 F 05/12/17 08:09 Pulse 66 05/12/17 08:09 Resp 18 05/12/17 08:09 BP 116/61 05/12/17 10:18 Pulse Ox 96 05/12/17 08:09 - Labs Result Diagrams: 05/12/17 05:50 05/12/17 05:50 Labs: Laboratory Results - last 24 hr 08/05/11/17 05/11/17 17:23 17:23 17:23 WBC RBC Hgb Hct MCV MCH MCHC RDW Plt Count MPV Neut % (Auto) Lymph % (Auto) Terrell % (Auto) Eos % (Auto) Baso % (Auto) Neut # Lymph # Terrell # Eos # Baso # Neutrophils % (Manual) Lymphocytes % (Manual) Monocytes % (Manual) Platelet Estimate Retic Count Haptoglobin 82 D-Dimer, Quantitative 339 H Sodium Potassium Chloride Carbon Dioxide Anion Gap BUN Creatinine Est GFR ( Amer) Est GFR (Non-Af Amer) Random Glucose Calcium Iron 62 TIBC 291 % Saturation 21 Ferritin Total Bilirubin Direct Bilirubin AST ALT Alkaline Phosphatase Lactate Dehydrogenase Total Protein Albumin Globulin Albumin/Globulin Ratio Triglycerides Cholesterol LDL Cholesterol Direct HDL Cholesterol Vitamin B12 Folate Homocysteine Thyroxine (T4) TSH 3rd Generation 05/11/17 05/11/17 05/11/17 17:23 17:29 18:23 WBC RBC Hgb Hct MCV MCH MCHC RDW Plt Count MPV Neut % (Auto) Lymph % (Auto) Terrell % (Auto) Eos % (Auto) Baso % (Auto) Neut # Lymph # Terrell # Eos # Baso # Neutrophils % (Manual) Lymphocytes % (Manual) Monocytes % (Manual) Platelet Estimate Retic Count 7.5 H Haptoglobin D-Dimer, Quantitative Sodium Potassium Chloride Carbon Dioxide Anion Gap BUN Creatinine Est GFR ( Amer) Est GFR (Non-Af Amer) Random Glucose Calcium Iron TIBC % Saturation Ferritin 179.0 Total Bilirubin Direct Bilirubin 0.3 AST ALT Alkaline Phosphatase Lactate Dehydrogenase 690 H Total Protein Albumin Globulin Albumin/Globulin Ratio Triglycerides Cholesterol LDL Cholesterol Direct HDL Cholesterol Vitamin B12 845 Folate 10.1 Homocysteine 7.9 Thyroxine (T4) TSH 3rd Generation 05/12/17 05/12/17 05:50 05:50 WBC 9.3 D RBC 2.30 L Hgb 7.0 L Hct 20.5 L MCV 89.0 MCH 30.5 MCHC 34.3 RDW 15.3 H Plt Count 101 L MPV 7.7 Neut % (Auto) 90.9 H Lymph % (Auto) 6.4 L Terrell % (Auto) 2.5 Eos % (Auto) 0.0 Baso % (Auto) 0.2 Neut # 8.4 H Lymph # 0.6 L Terrell # 0.2 Eos # 0.0 Baso # 0.0 Neutrophils % (Manual) 92 H Lymphocytes % (Manual) 5 L Monocytes % (Manual) 3 Platelet Estimate Slightly decreased L Retic Count Haptoglobin D-Dimer, Quantitative Sodium 137 Potassium 4.3 Chloride 99 Carbon Dioxide 30 Anion Gap 12 BUN 33 H Creatinine 0.8 Est GFR ( Amer) > 60 Est GFR (Non-Af Amer) > 60 Random Glucose 151 H Calcium 8.6 Iron TIBC % Saturation Ferritin Total Bilirubin 0.5 Direct Bilirubin AST 29 ALT 30 Alkaline Phosphatase < 20 L Lactate Dehydrogenase Total Protein 5.3 L Albumin 3.3 L Globulin 2.0 L Albumin/Globulin Ratio 1.7 Triglycerides 115 Cholesterol 93 LDL Cholesterol Direct 48 HDL Cholesterol 32 Vitamin B12 Folate Homocysteine Thyroxine (T4) 5.14 L TSH 3rd Generation 1.11 Assessment & Plan - Assessment and Plan (Free Text) Assessment: Physical exam; alert, well oriented in no acute distress neck; supple, no adenopathy Chest; air entry poor both bases, positive for rales both bases. Heart; RSR, no murmur Abd; Soft, no mass. no h/s megaly Plan: Impression; Anemia and thrombocytopenioa etiology to be determined Plan; Would like to do a bone marrow if patient is willing tomorrow,
--- NOTE | 2017-05-12 11:10 | US ---
PROCEDURE: Bilateral lower extremity venous duplex Doppler. HISTORY: Edema of the Bilateral LE, D-dimer is positive COMPARISON: None available. TECHNIQUE: Bilateral common femoral, superficial femoral, popliteal and posterior tibial veins were evaluated. Flow was assessed with color Doppler, compressibility, assessment of phasic flow and augmentation response. FINDINGS: COMMON FEMORAL VEIN: Right CFV: Normal direction of flow, compressibility and spectral waveform. Left CFV: Normal direction of flow, compressibility and spectral waveform. SUPERFICIAL FEMORAL VEIN: Right SFV: Normal direction of flow, compressibility and spectral waveform. Left SFV: Normal direction of flow, compressibility and spectral waveform. POPLITEAL VEIN: Right Popliteal: Normal direction of flow, compressibility and spectral waveform. Left Popliteal: Normal direction of flow, compressibility and spectral waveform. POSTERIOR TIBIAL VEIN: Right PTV: Normal direction of flow, compressibility and spectral waveform. Left PTV: Normal direction of flow, compressibility and spectral waveform. OTHER FINDINGS: There is diffuse subcutaneous edema. IMPRESSION: No evidence of deep venous thrombosis.
--- NOTE | 2017-05-12 12:28 | CON ---
DATE: HISTORY OF PRESENT ILLNESS: Mr. Matias is an 81-year-old male who is referred for pulmonary evaluation by Dr. Flores, who was admitted because of shortness of breath *------* for acute exacerbation of chronic obstructive pulmonary disease. PAST MEDICAL HISTORY: Remarkable for atrial fibrillation, coronary artery disease, status post valve replacement, hypertension, COPD, requiring home oxygen, hypothyroidism, obstructive sleep apnea syndrome, recurrent pneumonia and thrombocytopenia and anemia. He appears comfortable at present and is able to give a history. FAMILY HISTORY: Noncontributory. SOCIAL HISTORY: He denies aggress smoking, does use alcohol, and does use drugs. REVIEW OF SYSTEMS: Remarkable for shortness of breath and exercise intolerance. PHYSICAL EXAMINATION: GENERAL: The patient is alert and oriented, appears to be presently in acute distress. VITAL SIGNS: Blood pressure of 116/61, pulse of 66, and respiratory rate is 18. He is afebrile. O2 sat is 96% on room air. SKIN: Shows fair turgor. HEENT: Pupils are equal, and reactive to light and accommodation. Mouth shows fair hygiene. NECK: JVP flat. LUNGS: Fair aeration bilateral except for basal dullness, but no rales or wheezing appreciated. ABDOMEN: Soft and nontender. No organomegaly. EXTREMITIES: Show no edema and cyanosis are present. DIAGNOSTIC DATA: Chest x-ray is remarkable for improved aeration of both lungs and mild pulmonary congestion, bibasilar atelectasis and small pleural effusion. EKG: Sinus rhythm with occasional PVCs, right bundle-branch block. CT scan of the chest, no evidence of pulmonary embolism, central lobe emphysema, small bilateral pleural effusions with adjacent compressive atelectasis. LABORATORY DATA: WBC of 9.3, hemoglobin of 7.0, and platelet count of 101,000. Sodium of 137, potassium of 4.3, BUN of 33, and creatinine of 0.8. Troponin is 0.052, ABG is remarkable for pH of 7.47, pCO2 of 54, pO2 of 91, and O2 sat of 99.7, this is on 28% FiO2. IMPRESSION: 1. Acute exacerbation of chronic obstructive pulmonary disease with small bibasilar pleural reaction and atelectasis with arterial blood gas showing bilateral *------* and mild hypercapnia. 2. History of coronary artery disease. 3. History of hypertension. 4. Severe anemia. PLAN: There is a less bronchodilators oxygen. The patient may need transfusion of packed red blood cells prior to discharge home. We will continue therapy as ordered from a pulmonary point of view. Jacek Morgan MD
--- NOTE | 2017-05-12 17:00 | CP.PCM.PN ---
Subjective - Date & Time of Evaluation Date of Evaluation: 05/12/17 Time of Evaluation: 08:30 - Subjective Subjective: Patient was seen and examined.Sitting in chair in NAD, saturating 95 % on 2 L O2 via NC. With black tarry bowel movements early today.Denies any abdominal pain , nausea or vomiting His breathing has improved and is back to his baseline. He is feeling anxious about further testing and posibility of finding something wrong with him Hgb still low at 7 after 2 unit PRBC transfusion . Objective - Vital Signs/Intake and Output Vital Signs (last 24 hours): Temp Pulse Resp BP Pulse Ox 98.3 F 61 16 113/58 L 96 05/12/17 16:22 05/12/17 16:22 05/12/17 16:22 05/12/17 16:22 05/12/17 16:22 - Medications Medications: Current Medications Atorvastatin Calcium (Lipitor) 80 mg PO DAILY [facility] Last Admin: 05/12/17 10:18 Dose: 80 mg Docusate Sodium (Colace) 100 mg PO BID [facility] Last Admin: 05/12/17 16:37 Dose: 100 mg Ferrous Sulfate (Feosol) 325 mg PO TID [facility] Last Admin: 05/12/17 16:36 Dose: 325 mg Furosemide (Lasix) 40 mg PO DAILY [facility] Last Admin: 05/12/17 10:18 Dose: 40 mg Methylprednisolone 60 mg/ (Sodium Chloride) 50.96 mls @ 101.92 mls/hr IV Q8 [facility] Last Admin: 05/12/17 16:38 Dose: Not Given Ipratropium [place] (Atrovent) 0.5 mg IH RQ6 PRN PRN Reason: Shortness of Breath Levothyroxine Sodium (Synthroid) 25 mcg PO DAILY@0630 [facility] Last Admin: 05/12/17 05:45 Dose: 25 mcg Multivitamins/Minerals (Therapeutic-M Tab) 1 tab PO HS [facility] Last Admin: 05/11/17 21:16 Dose: 1 tab Nitroglycerin (Nitrostat Sl Tab) 0.4 mg SL Q5MIN PRN PRN Reason: chest pain Pantoprazole Sodium (Protonix Ec Tab) 40 mg PO DAILY [facility] Last Admin: 05/12/17 10:18 Dose: 40 mg Pantoprazole Sodium (Protonix Inj) 40 mg IVP BID [facility] Fluticasone/Salmeterol (Advair Diskus 250/50) 1 puff IH Q12H [facility] Last Admin: 05/12/17 16:37 Dose: 1 puff Tiotropium [place] (Spiriva) 18 mcg IH DAILY [facility] Last Admin: 05/12/17 10:19 Dose: 18 mcg - Labs Labs: 05/12/17 05:50 05/12/17 05:50 PT 12.1 Seconds (9.8-13.1) 05/11/17 11:05 INR 1.2 (0.9-1.2) 05/11/17 11:05 APTT 30.0 Seconds (25.6-37.1) 05/11/17 11:05 - Constitutional Appears: No Acute Distress, Chronically Ill, Other (obese ) - Head Exam Head Exam: ATRAUMATIC, NORMAL INSPECTION, NORMOCEPHALIC - Eye Exam Eye Exam: EOMI, Normal appearance, PERRL Pupil Exam: NORMAL ACCOMODATION - ENT Exam ENT Exam: Mucous Membranes Moist, Normal Exam - Neck Exam Neck Exam: Normal Inspection - Respiratory Exam Respiratory Exam: Clear to Ausculation Bilateral, Prolonged Expiratory Phase. absent: Rhonchi, Wheezes - Cardiovascular Exam Cardiovascular Exam: REGULAR RHYTHM, RRR, +S1, +S2. absent: JVD - GI/Abdominal Exam GI & Abdominal Exam: Distended, Soft, Normal Bowel Sounds. absent: Guarding, Tenderness, Rebound - Rectal Exam Rectal Exam: Deferred - Extremities Exam Extremities Exam: Normal Capillary Refill, Normal Inspection. 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 He states that last night 05/10/17 he started to experience difficulty breathing with shortness of breath. He used his albuterol nebulizer and this improved his symptoms and allowed him to go to sleep. After he woke up this morning and started to get ready for his day, his shortness of breath returned, along with some blurriness of vision. Leann was brought To Er for evaluation In Er he was found to have Hgb 6, refused guiac test , denied blood per rectum but stated that his bowel movement is black. He has been off Coumadin for more than 2 weeks ( from his PMD , unknown reason) He was treated for COPD exaxerbation with Duonebs, solumedrol and admitted in telemetry 1. Anemia of GI bleed most likely upper GI bleed since patient has melena and occult blood pis positive s/p 2 unit PRBC transfusion and still with Hgb 7 from 6. will transfuse 2 more units today Hematology and Gi consulted Started Protonix 40 mg IV BId Follow up anemia work up Patient will benefit from EGD and colonoscopy but seems scared of the idea of these tests finding something wrong Repeat SBVc in AM keep NPO past midnight for possible EGD 2.COPD exacerbation improving Chest X Ray showed interval improvement in both lungs with residual mild pulmonary venous congestion, bibasilar atelectasis, and suspected small bilateral pleural effusions Continue atrovent, Solumedrol 3 L O2 via NC (this is what he uses continuously while at home) Spiriva 18 mcg PO INH 1x/day Advair 250/50 mcg 1 PO INH 2x/day [employer] Dr. Morgan consulted and case discussed . no further work up necessary 3.Paroxysmal atrial fibrillation rate controlled He has Bovine Aortic Valve Replacement Patient explains that his PMD Dr. Franz discontinued Coumadin roughly 2 weeks ago. INR is 1.[address] Sandhu appreciated. Transfuse to maintain Hgb 10 4. Coronary artery disease stable 2D Echocardiogram 03/02/17 showed mild concentric LVH, LVSF normal, EF estimated at 65-70%, mild aortic stenosis, biprosthetic aortic valve Cardiology Dr. Abrahan Sandhu consulted . Medical management Crestor 40 mg PO 1x/day 5.Hypothyroidism continue Levothyroxine 25 mcg PO 1x/day 6. HTN (hypertension) controlled Lasix 40 mg PO 1x/day 7.Hyperlipidemia on statin 8. 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 Jeremías Arias consulted 9. DVt prophylaxis SCD no anticoagulation
--- NOTE | 2017-05-12 17:45 | CP.PCM.CON ---
History of Present Illness - History of Present Illness History of Present Illness: 81 yo energetic male with h/o COPD, afib, valve replacement, and previously on coumadin admitted for shortness of breath and found to be very anemic.Patient states he used ibuprofen a couple of days ago. Has noted black stools but was attributig it to his pills. Has been receiving blood transfusions since admission. Review of Systems - Constitutional Constitutional: absent: Chills - EENT Eyes: As Per HPI Ears: Dizziness Nose/Mouth/Throat: absent: Epistaxis - Cardiovascular Cardiovascular: absent: Chest Pain - Respiratory Respiratory: Dyspnea - Gastrointestinal Gastrointestinal: absent: Abdominal Pain Past Patient History - Past Medical History & Family History Past Medical History?: Yes - Past Social History Smoking Status: Former Smoker - CARDIAC Hx Cardiac Disorders: Yes Hx Atrial Fibrillation: Yes Hx Congestive Heart Failure: Yes Other/Comment: valve surgery - PULMONARY Hx Respiratory Disorders: Yes Hx Asthma: Yes Hx Chronic Obstructive Pulmonary Disease (COPD): Yes Hx Emphysema: Yes - NEUROLOGICAL Hx Neurological Disorder: No - HEENT Hx HEENT Problems: No - RENAL Hx Chronic Kidney Disease: No - ENDOCRINE/METABOLIC Hx Endocrine Disorders: No - HEMATOLOGICAL/ONCOLOGICAL Hx Blood Disorders: No - INTEGUMENTARY Hx Dermatological Problems: No - MUSCULOSKELETAL/RHEUMATOLOGICAL Hx Arthritis: Yes Hx Falls: No - GASTROINTESTINAL Hx Gastrointestinal Disorders: No - GENITOURINARY/GYNECOLOGICAL Hx Genitourinary Disorders: No - PSYCHIATRIC Hx Psychophysiologic Disorder: No Hx Substance Use: No - SURGICAL HISTORY Hx Cardiac Catheterization: Yes Hx Valve Replacement: Yes (Valve surgery) - ANESTHESIA Hx Anesthesia: Yes Hx Anesthesia Reactions: No Hx Malignant Hyperthermia: No Meds Allergies/Adverse Reactions: Allergies Allergy/AdvReac Type Severity Reaction Status Date / Time No Known Allergies Allergy Verified 03/01/17 10:03 - Medications Medications: Current Medications Atorvastatin Calcium (Lipitor) 80 mg PO DAILY [facility] Last Admin: 05/12/17 10:18 Dose: 80 mg Docusate Sodium (Colace) 100 mg PO BID [facility] Last Admin: 05/12/17 16:37 Dose: 100 mg Ferrous Sulfate (Feosol) 325 mg PO TID [facility] Last Admin: 05/12/17 16:36 Dose: 325 mg Furosemide (Lasix) 40 mg PO DAILY [facility] Last Admin: 05/12/17 10:18 Dose: 40 mg Methylprednisolone 60 mg/ (Sodium Chloride) 50.96 mls @ 101.92 mls/hr IV Q8 [facility] Last Admin: 05/12/17 16:38 Dose: Not Given Ipratropium [place] (Atrovent) 0.5 mg IH RQ6 PRN PRN Reason: Shortness of Breath Levothyroxine Sodium (Synthroid) 25 mcg PO DAILY@0630 [facility] Last Admin: 05/12/17 05:45 Dose: 25 mcg Multivitamins/Minerals (Therapeutic-M Tab) 1 tab PO HS [facility] Last Admin: 05/11/17 21:16 Dose: 1 tab Nitroglycerin (Nitrostat Sl Tab) 0.4 mg SL Q5MIN PRN PRN Reason: chest pain Pantoprazole Sodium (Protonix Ec Tab) 40 mg PO DAILY [facility] Last Admin: 05/12/17 10:18 Dose: 40 mg Pantoprazole Sodium (Protonix Inj) 40 mg IVP BID [facility] Fluticasone/Salmeterol (Advair Diskus 250/50) 1 puff IH Q12H [facility] Last Admin: 05/12/17 16:37 Dose: 1 puff Tiotropium [place] (Spiriva) 18 mcg IH DAILY [facility] Last Admin: 05/12/17 10:19 Dose: 18 mcg Physical Exam - Head Exam Head Exam: NORMOCEPHALIC - Eye Exam Eye Exam: Normal appearance Pupil Exam: PERRL - ENT Exam ENT Exam: Normal Exam - Neck Exam Neck exam: Positive for: Full Rom - Respiratory Exam Respiratory Exam: NORMAL BREATHING PATTERN - Cardiovascular Exam Cardiovascular Exam: +S1, +S2 - GI/Abdominal Exam GI & Abdominal Exam: Normal Bowel Sounds, Soft. absent: Tenderness Results - Vital Signs Recent Vital Signs: Last Vital Signs Temp 98.3 F 05/12/17 16:22 Pulse 61 05/12/17 16:22 Resp 16 05/12/17 16:22 BP 113/58 L 05/12/17 16:22 Pulse Ox 96 05/12/17 16:22 - Labs Result Diagrams: 05/12/17 05:50 05/12/17 05:50 Labs: Laboratory Results - last 24 hr 05/11/17 05/11/17 05/11/17 17:23 17:23 17:23 WBC RBC Hgb Hct MCV MCH MCHC RDW Plt Count MPV Neut % (Auto) Lymph % (Auto) Blair % (Auto) Eos % (Auto) Baso % (Auto) Neut # Lymph # Blair # Eos # Baso # Neutrophils % (Manual) Lymphocytes % (Manual) Monocytes % (Manual) Platelet Estimate Retic Count Haptoglobin 82 D-Dimer, Quantitative 339 H Sodium Potassium Chloride Carbon Dioxide Anion Gap BUN Creatinine Est GFR ( Amer) Est GFR (Non-Af Amer) Random Glucose Calcium Iron 62 TIBC 291 % Saturation 21 Ferritin Total Bilirubin Direct Bilirubin AST ALT Alkaline Phosphatase Lactate Dehydrogenase Total Protein Albumin Globulin Albumin/Globulin Ratio Triglycerides Cholesterol LDL Cholesterol Direct HDL Cholesterol Vitamin B12 Folate Homocysteine Thyroxine (T4) TSH 3rd Generation Stool Occult Blood Anti-Parietal Cell Ab 05/11/17 05/11/17 05/11/17 17:23 17:23 17:29 WBC RBC Hgb Hct MCV MCH MCHC RDW Plt Count MPV Neut % (Auto) Lymph % (Auto) Blair % (Auto) Eos % (Auto) Baso % (Auto) Neut # Lymph # Blair # Eos # Baso # Neutrophils % (Manual) Lymphocytes % (Manual) Monocytes % (Manual) Platelet Estimate Retic Count 7.5 H Haptoglobin D-Dimer, Quantitative Sodium Potassium Chloride Carbon Dioxide Anion Gap BUN Creatinine Est GFR ( Amer) Est GFR (Non-Af Amer) Random Glucose Calcium Iron TIBC % Saturation Ferritin Total Bilirubin Direct Bilirubin AST ALT Alkaline Phosphatase Lactate Dehydrogenase Total Protein Albumin Globulin Albumin/Globulin Ratio Triglycerides Cholesterol LDL Cholesterol Direct HDL Cholesterol Vitamin B12 Folate Homocysteine 7.9 Thyroxine (T4) TSH 3rd Generation Stool Occult Blood Anti-Parietal Cell Ab Negative 05/11/17 05/12/17 05/12/17 18:23 05:50 05:50 WBC 9.3 D RBC 2.30 L Hgb 7.0 L Hct 20.5 L MCV 89.0 MCH 30.5 MCHC 34.3 RDW 15.3 H Plt Count 101 L MPV 7.7 Neut % (Auto) 90.9 H Lymph % (Auto) 6.4 L Blair % (Auto) 2.5 Eos % (Auto) 0.0 Baso % (Auto) 0.2 Neut # 8.4 H Lymph # 0.6 L Blair # 0.2 Eos # 0.0 Baso # 0.0 Neutrophils % (Manual) 92 H Lymphocytes % (Manual) 5 L Monocytes % (Manual) 3 Platelet Estimate Slightly decreased L Retic Count Haptoglobin D-Dimer, Quantitative Sodium 137 Potassium 4.3 Chloride 99 Carbon Dioxide 30 Anion Gap 12 BUN 33 H Creatinine 0.8 Est GFR ( Amer) > 60 Est GFR (Non-Af Amer) > 60 Random Glucose 151 H Calcium 8.6 Iron TIBC % Saturation Ferritin 179.0 Total Bilirubin 0.5 Direct Bilirubin 0.3 AST 29 ALT 30 Alkaline Phosphatase < 20 L Lactate Dehydrogenase 690 H Total Protein 5.3 L Albumin 3.3 L Globulin 2.0 L Albumin/Globulin Ratio 1.7 Triglycerides 115 Cholesterol 93 LDL Cholesterol Direct 48 HDL Cholesterol 32 Vitamin B12 845 Folate 10.1 Homocysteine Thyroxine (T4) 5.14 L TSH 3rd Generation 1.11 Stool Occult Blood Anti-Parietal Cell Ab 05/12/17 12:17 WBC RBC Hgb Hct MCV MCH MCHC RDW Plt Count MPV Neut % (Auto) Lymph % (Auto) Blair % (Auto) Eos % (Auto) Baso % (Auto) Neut # Lymph # Blair # Eos # Baso # Neutrophils % (Manual) Lymphocytes % (Manual) Monocytes % (Manual) Platelet Estimate Retic Count Haptoglobin D-Dimer, Quantitative Sodium Potassium Chloride Carbon Dioxide Anion Gap BUN Creatinine Est GFR ( Amer) Est GFR (Non-Af Amer) Random Glucose Calcium Iron TIBC % Saturation Ferritin Total Bilirubin Direct Bilirubin AST ALT Alkaline Phosphatase Lactate Dehydrogenase Total Protein Albumin Globulin Albumin/Globulin Ratio Triglycerides Cholesterol LDL Cholesterol Direct HDL Cholesterol Vitamin B12 Folate Homocysteine Thyroxine (T4) TSH 3rd Generation Stool Occult Blood Positive H Anti-Parietal Cell Ab Assessment & Plan (1) GI bleed Assessment and Plan: Has anemia, melena, and elevated BUN. Most consistent with subacute bleed. Possibly due to recent NSAD use. Agree with transfusions and oral pantoprazole. Upper endoscopy tomorrow to rule out ulcer or other gastric lesion. Status: Acute (2) Anemia Status: Acute
--- NOTE | 2017-05-12 18:08 | CP.PCM.PN ---
Subjective - Date & Time of Evaluation Date of Evaluation: 05/12/17 Time of Evaluation: 17:20 - Subjective Subjective: patient has no dyspnea. s/p PRBCs but did not have appropriate increase in hgb. still requiring PRBCs Objective - Vital Signs/Intake and Output Vital Signs (last 24 hours): Temp Pulse Resp BP Pulse Ox 98.3 F 61 16 113/58 L 96 05/12/17 16:22 05/12/17 16:22 05/12/17 16:22 05/12/17 16:22 05/12/17 16:22 - Medications Medications: Current Medications Atorvastatin Calcium (Lipitor) 80 mg PO DAILY [facility] Last Admin: 05/12/17 10:18 Dose: 80 mg Docusate Sodium (Colace) 100 mg PO BID [facility] Last Admin: 05/12/17 16:37 Dose: 100 mg Ferrous Sulfate (Feosol) 325 mg PO TID [facility] Last Admin: 05/12/17 16:36 Dose: 325 mg Furosemide (Lasix) 40 mg PO DAILY [facility] Last Admin: 05/12/17 10:18 Dose: 40 mg Methylprednisolone 60 mg/ (Sodium Chloride) 50.96 mls @ 101.92 mls/hr IV Q8 [facility] Last Admin: 05/12/17 16:38 Dose: Not Given Ipratropium [place] (Atrovent) 0.5 mg IH RQ6 PRN PRN Reason: Shortness of Breath Levothyroxine Sodium (Synthroid) 25 mcg PO DAILY@0630 [facility] Last Admin: 05/12/17 05:45 Dose: 25 mcg Multivitamins/Minerals (Therapeutic-M Tab) 1 tab PO HS [facility] Last Admin: 05/11/17 21:16 Dose: 1 tab Nitroglycerin (Nitrostat Sl Tab) 0.4 mg SL Q5MIN PRN PRN Reason: chest pain Pantoprazole Sodium (Protonix Ec Tab) 40 mg PO DAILY [facility] Last Admin: 05/12/17 10:18 Dose: 40 mg Pantoprazole Sodium (Protonix Inj) 40 mg IVP BID [facility] Fluticasone/Salmeterol (Advair Diskus 250/50) 1 puff IH Q12H [facility] Last Admin: 05/12/17 16:37 Dose: 1 puff Tiotropium [place] (Spiriva) 18 mcg IH DAILY [facility] Last Admin: 05/12/17 10:19 Dose: 18 mcg - Labs Labs: 05/12/17 05:50 05/12/17 05:50 PT 12.1 Seconds (9.8-13.1) 05/11/17 11:05 INR 1.2 (0.9-1.2) 05/11/17 11:05 APTT 30.0 Seconds (25.6-37.1) 05/11/17 11:05 - Constitutional Appears: Non-toxic - Head Exam Head Exam: NORMAL INSPECTION - Eye Exam Eye Exam: Normal appearance - ENT Exam ENT Exam: Mucous Membranes Moist - Neck Exam Neck Exam: Full ROM - Respiratory Exam Respiratory Exam: NORMAL BREATHING PATTERN - Cardiovascular Exam Cardiovascular Exam: REGULAR RHYTHM, Murmur - GI/Abdominal Exam GI & Abdominal Exam: Normal Bowel Sounds - Rectal Exam Rectal Exam: Deferred - Extremities Exam Extremities Exam: Pedal Edema - Back Exam Back Exam: NORMAL INSPECTION - Neurological Exam Neurological Exam: Alert - Psychiatric Exam Psychiatric exam: Normal Affect - Skin Skin Exam: Normal Color Assessment and Plan (1) Anemia Assessment & Plan: continue transfusion, GI eval Status: Acute (2) HTN (hypertension) Assessment & Plan: blood pressure control Status: Chronic (3) Aortic stenosis Assessment & Plan: no clinical heart failure Status: Acute (4) Paroxysmal a-fib Assessment & Plan: not on anticoagulation Status: Chronic
[2017-05-12] MEDS: Multivitamin With Minerals Tab PO SCH (21:35)
[2017-05-13] MEDS: Fluticasone-Salmeterol 250-50mcg Diskus IH SCH ×2 (00:53→14:02)
[2017-05-13] MEDS: methylPREDNISolone 60 MG in Sodium Chloride 0.9% 50 ML IV SCH ×3 (01:26→17:49)
[2017-05-13] MEDS: Levothyroxine 25 MCG TAB PO SCH (06:07)
[2017-05-13 06:34] LABS: HEMOGLOBIN 8.1 g/dL (12.0-18.0); MEAN CELL VOLUME 88.6 fl (80.0-94.0); MEAN CORPUSCULAR HEMOGLOBIN 30.4 pg (27.0-31.0); MEAN CORPUSCULAR HGB CONC 34.3 g/dL (33.0-37.0); RBC 2.66 Mil/uL (4.40-5.90); RED CELL DISTRIBUTION WIDTH 16.2 % (11.5-14.5); WHITE BLOOD COUNT 11.4 K/uL (4.8-10.8)
[2017-05-13 06:49] LABS: BLOOD UREA NITROGEN 32 mg/dl (9-20); CALCIUM 8.4 mg/dL (8.4-10.2); GFR AFRICAN-AMERICAN > 60; GFR NON-AFRICAN AMERICAN > 60
--- NOTE | 2017-05-13 07:40 | CP.PCM.PN ---
Subjective - Date & Time of Evaluation Date of Evaluation: 05/13/17 Time of Evaluation: 08:00 - Subjective Subjective: Patient was seen and examined.Sitting in chair , saturating 95 % on 3 L O2 via NC.Denies any abdominal pain , nausea or vomiting. NPO for possible EGD today His breathing has improved and is back to his baseline. He is feeling anxious about further testing s/p 4 unit PRBC transfusion with Hgb 8.1 today Denies any chest pain , SOB, melena today . Objective - Vital Signs/Intake and Output Vital Signs (last 24 hours): Temp Pulse Resp BP Pulse Ox 98.4 F 69 20 113/61 95 05/13/17 05:00 05/13/17 05:00 05/13/17 05:00 05/13/17 05:00 05/13/17 05:00 Intake and Output: 05/13/17 05/13/17 06:59 18:59 Intake Total 2250 Output Total 2200 Balance 50 - Medications Medications: Current Medications Atorvastatin Calcium (Lipitor) 80 mg PO DAILY [facility] Last Admin: 05/12/17 10:18 Dose: 80 mg Docusate Sodium (Colace) 100 mg PO BID [facility] Last Admin: 05/12/17 16:37 Dose: 100 mg Ferrous Sulfate (Feosol) 325 mg PO TID [facility] Last Admin: 05/12/17 16:36 Dose: 325 mg Furosemide (Lasix) 40 mg PO DAILY [facility] Last Admin: 05/12/17 10:18 Dose: 40 mg Methylprednisolone 60 mg/ (Sodium Chloride) 50.96 mls @ 101.92 mls/hr IV Q8 [facility] Last Admin: 05/13/17 01:26 Dose: 101.92 mls/hr Ipratropium [place] (Atrovent) 0.5 mg IH RQ6 PRN PRN Reason: Shortness of Breath Levothyroxine Sodium (Synthroid) 25 mcg PO DAILY@0630 [facility] Last Admin: 05/13/17 06:07 Dose: Not Given Multivitamins/Minerals (Therapeutic-M Tab) 1 tab PO HS [facility] Last Admin: 05/12/17 21:35 Dose: 1 tab Nitroglycerin (Nitrostat Sl Tab) 0.4 mg SL Q5MIN PRN PRN Reason: chest pain Pantoprazole Sodium (Protonix Inj) 40 mg IVP BID@0900,2100 [facility] Last Admin: 05/13/17 00:57 Dose: 40 mg Fluticasone/Salmeterol (Advair Diskus 250/50) 1 puff IH Q12H [facility] Last Admin: 05/13/17 00:53 Dose: 1 puff Tiotropium [place] (Spiriva) 18 mcg IH DAILY [facility] Last Admin: 05/12/17 10:19 Dose: 18 mcg - Labs Labs: 05/13/17 05:00 05/13/17 05:00 PT 12.1 Seconds (9.8-13.1) 05/11/17 11:05 INR 1.2 (0.9-1.2) 05/11/17 11:05 APTT 30.0 Seconds (25.6-37.1) 05/11/17 11:05 - Constitutional Appears: Non-toxic, Chronically Ill, Other (obese) - Head Exam Head Exam: ATRAUMATIC, NORMAL INSPECTION, NORMOCEPHALIC - Eye Exam Eye Exam: EOMI, Normal appearance, PERRL Pupil Exam: NORMAL ACCOMODATION - ENT Exam ENT Exam: Mucous Membranes Moist, Normal Exam - Neck Exam Neck Exam: Normal Inspection - Respiratory Exam Respiratory Exam: Clear to Ausculation Bilateral, Prolonged Expiratory Phase. absent: Rhonchi, Wheezes, Respiratory Distress - Cardiovascular Exam Cardiovascular Exam: Irregular Rhythm, RRR, +S1, +S2. absent: JVD - GI/Abdominal Exam GI & Abdominal Exam: Soft, Normal Bowel Sounds. absent: Distended, Guarding, Tenderness, Rebound - Rectal Exam Rectal Exam: Deferred - Extremities Exam Extremities Exam: Full ROM, Normal Capillary Refill, Normal Inspection. 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 He states that last night 05/10/17 he started to experience difficulty breathing with shortness of breath. He used his albuterol nebulizer and this improved his symptoms and allowed him to go to sleep. After he woke up this morning and started to get ready for his day, his shortness of breath returned, along with some blurriness of vision. Leann was brought To Er for evaluation In ER he was found to have Hgb 6, refused guiac test , denied blood per rectum but stated that his bowel movement is black. He has been off Coumadin for more than 2 weeks ( from his PMD , unknown reason) He was treated for COPD exacerbation with Duonebs, solumedrol and admitted in telemetry Transfused with 4 unit PRBC with hgb 8.1 post transfusion .Started on PPI and GI consulted for endoscopy. 1. Anemia of GI bleed most likely upper GI bleed since patient has melena and occult blood is positive s/p 4 unit PRBC transfusion with Hgb 8.1 from 6. Hematology and GI consulted Started Protonix 40 mg IV BId Anemia work up most likely consistent with acute bleed Patient will benefit from EGD and colonoscopy Plan foe EGD in AM keep NPO past midnight 2.COPD exacerbation improving Chest X Ray showed interval improvement in both lungs with residual mild pulmonary venous congestion, bibasilar atelectasis, and suspected small bilateral pleural effusions Continue atrovent, Solumedrol 3 L O2 via NC (this is what he uses continuously while at home) Spiriva 18 mcg PO INH 1x/day Advair 250/50 mcg 1 PO INH 2x/day Ocularist Dr. Morgan consulted and case discussed . no further work up necessary start tappering solumedrol 3.Paroxysmal atrial fibrillation rate controlled He has Bovine Aortic Valve Replacement Patient explains that his PMD Dr. Franz discontinued Coumadin roughly 2 weeks ago. INR is 1.[address] Sandhu appreciated. Transfuse to maintain Hgb 10 4. Coronary artery disease stable 2D Echocardiogram 03/02/17 showed mild concentric LVH, LVSF normal, EF estimated at 65-70%, mild aortic stenosis, biprosthetic aortic valve Cardiology Dr. Abrahan Sandhu consulted . Medical management Crestor 40 mg PO 1x/day 5.Hypothyroidism continue Levothyroxine 25 mcg PO 1x/day 6. HTN (hypertension) controlled Lasix 40 mg PO 1x/day 7.Hyperlipidemia on statin 8. Thrombocytopenia chronic , unclear etiology Plt [address] Jeremías Arias consulted patient will follow up as outpatient for possible bone marrow biopsy if no improvement 9. DVt prophylaxis SCD no anticoagulation
--- NOTE | 2017-05-13 08:37 | CP.PCM.PN ---
Subjective - Date & Time of Evaluation Date of Evaluation: 05/13/17 Time of Evaluation: 08:37 - Subjective Subjective: NO CHEST PAINS/SOB TODAY Objective - Vital Signs/Intake and Output Vital Signs (last 24 hours): Temp Pulse Resp BP Pulse Ox 98.4 F 60 18 120/54 L 91 L 05/13/17 08:02 05/13/17 08:02 05/13/17 08:02 05/13/17 08:02 05/13/17 08:02 Intake and Output: 05/13/17 05/13/17 06:59 18:59 Intake Total 2250 Output Total 2200 Balance 50 - Medications Medications: Current Medications Atorvastatin Calcium (Lipitor) 80 mg PO DAILY [facility] Last Admin: 05/12/17 10:18 Dose: 80 mg Docusate Sodium (Colace) 100 mg PO BID [facility] Last Admin: 05/12/17 16:37 Dose: 100 mg Ferrous Sulfate (Feosol) 325 mg PO TID [facility] Last Admin: 05/12/17 16:36 Dose: 325 mg Furosemide (Lasix) 40 mg PO DAILY [facility] Last Admin: 05/12/17 10:18 Dose: 40 mg Methylprednisolone 60 mg/ (Sodium Chloride) 50.96 mls @ 101.92 mls/hr IV Q8 [facility] Last Admin: 05/13/17 01:26 Dose: 101.92 mls/hr Ipratropium [place] (Atrovent) 0.5 mg IH RQ6 PRN PRN Reason: Shortness of Breath Levothyroxine Sodium (Synthroid) 25 mcg PO DAILY@0630 [facility] Last Admin: 05/13/17 06:07 Dose: Not Given Multivitamins/Minerals (Therapeutic-M Tab) 1 tab PO HS [facility] Last Admin: 05/12/17 21:35 Dose: 1 tab Nitroglycerin (Nitrostat Sl Tab) 0.4 mg SL Q5MIN PRN PRN Reason: chest pain Pantoprazole Sodium (Protonix Inj) 40 mg IVP BID@0900,2100 [facility] Last Admin: 05/13/17 00:57 Dose: 40 mg Fluticasone/Salmeterol (Advair Diskus 250/50) 1 puff IH Q12H [facility] Last Admin: 05/13/17 00:53 Dose: 1 puff Tiotropium [place] (Spiriva) 18 mcg IH DAILY [facility] Last Admin: 05/12/17 10:19 Dose: 18 mcg - Labs Labs: 05/13/17 05:00 05/13/17 05:00 PT 12.1 Seconds (9.8-13.1) 05/11/17 11:05 INR 1.2 (0.9-1.2) 05/11/17 11:05 APTT 30.0 Seconds (25.6-37.1) 05/11/17 11:05 - Constitutional Appears: No Acute Distress - Head Exam Head Exam: ATRAUMATIC, NORMAL INSPECTION, NORMOCEPHALIC - Eye Exam Eye Exam: EOMI, Normal appearance, PERRL Pupil Exam: NORMAL ACCOMODATION, PERRL - ENT Exam ENT Exam: Mucous Membranes Moist, Normal Exam - Neck Exam Neck Exam: Full ROM, Normal Inspection. absent: Lymphadenopathy - Respiratory Exam Respiratory Exam: Decreased Breath Sounds, Prolonged Expiratory Phase, NORMAL BREATHING PATTERN - Cardiovascular Exam Cardiovascular Exam: REGULAR RHYTHM, +S1, +S2. absent: Murmur - GI/Abdominal Exam GI & Abdominal Exam: Soft, Normal Bowel Sounds. absent: Tenderness - Rectal Exam Rectal Exam: NORMAL INSPECTION - Extremities Exam Extremities Exam: Full ROM, Normal Capillary Refill, Normal Inspection. absent : Joint Swelling, Pedal Edema - Back Exam Back Exam: NORMAL INSPECTION - Neurological Exam Neurological Exam: Alert, Awake, CN II-XII Intact, Normal Gait, Oriented x3 - Psychiatric Exam Psychiatric exam: Normal Affect, Normal Mood - Skin Skin Exam: Dry, Intact, Normal Color, Warm Assessment and Plan - Assessment and Plan (Free Text) Assessment: COPD-IMPROVED ANEMIA-PROBABLY DUE TO GI BLEED Plan: GI WORKUP IN PROGRESS WILL TAPER STEROIDS
--- NOTE | 2017-05-13 09:06 | CP.PCM.PN ---
Subjective - Date & Time of Evaluation Date of Evaluation: 05/13/17 Time of Evaluation: 09:00 - Subjective Subjective: Pt has melena since last night. He is going to have a EGD today. I had talked to the the pt re a bone marrow test, and had a consent. However pt's admitting physician feels that all his problems are from the GI bleeding, and he does not need a marrow. If things do not improve he will be referred to me as an outpatient for a bone marrow test. After 1 unit of blood the hgb is up to 8.1. Objective - Vital Signs/Intake and Output Vital Signs (last 24 hours): Temp Pulse Resp BP Pulse Ox 98.4 F 60 18 120/54 L 91 L 05/13/17 08:02 05/13/17 08:02 05/13/17 08:02 05/13/17 08:02 05/13/17 08:02 Intake and Output: 05/13/17 05/13/17 06:59 18:59 Intake Total 2250 Output Total 2200 Balance 50 - Medications Medications: Current Medications Atorvastatin Calcium (Lipitor) 80 mg PO DAILY [facility] Last Admin: 05/12/17 10:18 Dose: 80 mg Docusate Sodium (Colace) 100 mg PO BID [facility] Last Admin: 05/12/17 16:37 Dose: 100 mg Ferrous Sulfate (Feosol) 325 mg PO TID [facility] Last Admin: 05/12/17 16:36 Dose: 325 mg Furosemide (Lasix) 40 mg PO DAILY [facility] Last Admin: 05/12/17 10:18 Dose: 40 mg Methylprednisolone 60 mg/ (Sodium Chloride) 50.96 mls @ 101.92 mls/hr IV Q8 [facility] Last Admin: 05/13/17 01:26 Dose: 101.92 mls/hr Ipratropium [place] (Atrovent) 0.5 mg IH RQ6 PRN PRN Reason: Shortness of Breath Levothyroxine Sodium (Synthroid) 25 mcg PO DAILY@0630 [facility] Last Admin: 05/13/17 06:07 Dose: Not Given Multivitamins/Minerals (Therapeutic-M Tab) 1 tab PO HS [facility] Last Admin: 05/12/17 21:35 Dose: 1 tab Nitroglycerin (Nitrostat Sl Tab) 0.4 mg SL Q5MIN PRN PRN Reason: chest pain Pantoprazole Sodium (Protonix Inj) 40 mg IVP BID@0900,2100 [facility] Last Admin: 05/13/17 00:57 Dose: 40 mg Fluticasone/Salmeterol (Advair Diskus 250/50) 1 puff IH Q12H [facility] Last Admin: 05/13/17 00:53 Dose: 1 puff Tiotropium [place] (Spiriva) 18 mcg IH DAILY [facility] Last Admin: 05/12/17 10:19 Dose: 18 mcg - Labs Labs: 05/13/17 05:00 05/13/17 05:00 PT 12.1 Seconds (9.8-13.1) 05/11/17 11:05 INR 1.2 (0.9-1.2) 05/11/17 11:05 APTT 30.0 Seconds (25.6-37.1) 05/11/17 11:05
[2017-05-13] MEDS: Tiotropium 18 mcg Cap For Inhalation IH SCH (09:54)
[2017-05-13] MEDS: Multivitamin With Minerals Tab PO SCH (21:07)
[2017-05-14] MEDS: methylPREDNISolone 60 MG in Sodium Chloride 0.9% 50 ML IV SCH ×3 (00:26→17:25)
[2017-05-14] MEDS: Fluticasone-Salmeterol 250-50mcg Diskus IH SCH ×3 (00:27→14:16)
[2017-05-14] MEDS: Levothyroxine 25 MCG TAB PO SCH (06:15)
[2017-05-14 08:00] LABS: HEMOGLOBIN 8.6 g/dL (12.0-18.0); MEAN CELL VOLUME 91.3 fl (80.0-94.0); MEAN CORPUSCULAR HEMOGLOBIN 30.1 pg (27.0-31.0); RBC 2.85 Mil/uL (4.40-5.90); RED CELL DISTRIBUTION WIDTH 16.6 % (11.5-14.5); WHITE BLOOD COUNT 11.2 K/uL (4.8-10.8)
[2017-05-14 08:09] LABS: BLOOD UREA NITROGEN 31 mg/dl (9-20); CALCIUM 8.4 mg/dL (8.4-10.2); GFR AFRICAN-AMERICAN > 60; GFR NON-AFRICAN AMERICAN > 60
[2017-05-14] MEDS ORDERED: Lactated Ringer's 500 ML IV ONE (08:09)
[2017-05-14] MEDS ORDERED: Etomidate 20 mg/10ml Inj IV ONE (08:30)
[2017-05-14] MEDS ORDERED: Propofol 10 mg/ml Inj (20 ML) ONE (08:30)
[2017-05-14] MEDS: Tiotropium 18 mcg Cap For Inhalation IH SCH (10:17)
--- NOTE | 2017-05-14 10:41 | CP.PCM.DIS ---
Provider - Provider Date of Admission: 05/11/17 12:16 Attending physician: Sabino Flores MD Primary care physician: Dr. Santo Consults: GI consult cardiology consult Hematology consult pulmonary consult Time Spent in preparation of Discharge (in minutes): 30 Hospital Course - Lab Results Lab Results: Micro Results 05/11/17 13:40 Urine Urine Culture - Final No Growth (<1,000 CFU/ML) Most Recent Lab Values WBC 11.2 K/uL (4.8-10.8) H 05/14/17 07:46 RBC 2.85 Mil/uL (4.40-5.90) L 05/14/17 07:46 Hgb 8.6 g/dL (12.0-18.0) L 05/14/17 07:46 Hct 26.0 % (35.0-51.0) L 05/14/17 07:46 MCV 91.3 fl (80.0-94.0) D 05/14/17 07:46 MCH 30.1 pg (27.0-31.0) 05/14/17 07:46 MCHC 33.0 g/dL (33.0-37.0) 05/14/17 07:46 RDW 16.6 % (11.5-14.5) H 05/14/17 07:46 Plt Count 102 K/uL (130-400) L 05/14/17 07:46 MPV 7.7 fl (7.2-11.7) 05/12/17 05:50 Neut % (Auto) 90.9 % (50.0-75.0) H 05/12/17 05:50 Lymph % (Auto) 6.4 % (20.0-40.0) L 05/12/17 05:50 [place] % (Auto) 2.5 % (0.0-10.0) 05/12/17 05:50 Eos % (Auto) 0.0 % (0.0-4.0) 05/12/17 05:50 Baso % (Auto) 0.2 % (0.0-2.0) 05/12/17 05:50 Neut # 8.4 K/uL (1.8-7.0) H 05/12/17 05:50 Lymph # 0.6 K/uL (1.0-4.3) L 05/12/17 05:50 [place] # 0.2 K/uL (0.0-0.8) 05/12/17 05:50 Eos # 0.0 K/uL (0.0-0.7) 05/12/17 05:50 Baso # 0.0 K/uL (0.0-0.2) 05/12/17 05:50 Neutrophils % (Manual) 92 % (42-75) H 05/12/17 05:50 Band Neutrophils % 3 % (0-2) H 05/11/17 11:05 Lymphocytes % (Manual) 5 % (20-50) L 05/12/17 05:50 Monocytes % (Manual) 3 % (0-10) 05/12/17 05:50 Plasma Cell % (Manual) 1 (0-0) H 05/11/17 11:05 Platelet Estimate Slightly decreased (NORMAL) L 05/12/17 05:50 Large Platelets Present 05/11/17 11:05 Hypochromasia (manual) Slight 05/11/17 11:05 Anisocytosis (manual) Moderate 05/11/17 11:05 Microcytosis (manual) Slight 05/11/17 11:05 Macrocytosis (manual) Slight 05/11/17 11:05 Tear Drop Cells Slight 05/11/17 11:05 Ovalocytes Moderate 05/11/17 11:05 Retic Count 7.5 % (0.5-1.5) H 05/11/17 17:29 Haptoglobin 82 mg/dL (43-212) 05/11/17 17:23 PT 12.1 Seconds (9.8-13.1) 05/11/17 11:05 INR 1.2 (0.9-1.2) 05/11/17 11:05 APTT 30.0 Seconds (25.6-37.1) 05/11/17 11:05 D-Dimer, Quantitative 339 ng/mlDDU (0-230) H 05/11/17 17:23 pCO2 54 mm/Hg (35-45) H 05/11/17 11:25 pO2 91 mm/Hg (80-100) 05/11/17 11:25 HCO3 35.3 mmol/L (21-28) H 05/11/17 11:25 ABG pH 7.47 (7.35-7.45) H 05/11/17 11:25 ABG Total CO2 41.0 mmol/L (22-28) H 05/11/17 11:25 ABG O2 Saturation 99.7 % (95-98) H 05/11/17 11:25 ABG Base Excess 13.3 mmol/L (-2.0-3.0) H 05/11/17 11:25 Karthik Test Yes 05/11/17 11:25 ABG Potassium 3.6 mmol/L (3.6-5.2) 05/11/17 11:25 A-a O2 Difference 41.0 mm/Hg 05/11/17 11:25 Sodium 137.0 mmol/L (132-148) 05/11/17 11:25 Chloride 104.0 mmol/L (98-107) 05/11/17 11:25 Glucose 133 mg/dL (75-110) H 05/11/17 11:25 Lactate 0.7 mmol/L (0.7-2.1) 05/11/17 11:25 FiO2 28.0 % 05/11/17 11:25 Sodium 142 mmol/l (132-148) 05/14/17 07:46 Potassium 4.7 MMOL/L (3.6-5.0) 05/14/17 07:46 Chloride 104 mmol/L (98-107) 05/14/17 07:46 Carbon Dioxide 30 mmol/L (22-30) 05/14/17 07:46 Anion Gap 13 (10-20) 05/14/17 07:46 BUN 31 mg/dl (9-20) H 05/14/17 07:46 Creatinine 0.9 mg/dL (0.8-1.5) 05/14/17 07:46 Est GFR ( Amer) > 60 05/14/17 07:46 Est GFR (Non-Af Amer) > 60 05/14/17 07:46 POC Glucose (mg/dL) 133 mg/dL (65-110) H 05/11/17 10:57 Random Glucose 147 mg/dL (75-110) H 05/14/17 07:46 Calcium 8.4 mg/dL (8.4-10.2) 05/14/17 07:46 Phosphorus 3.8 mg/dl (2.5-4.5) 05/11/17 11:05 Magnesium 2.0 MG/DL (1.6-2.3) 05/11/17 11:05 Iron 62 ug/dL (49-181) 05/11/17 17:23 TIBC 291 ug/dL (250-450) 05/11/17 17:23 % Saturation 21 % (20-55) 05/11/17 17:23 Ferritin 179.0 ng/mL 05/11/17 18:23 Total Bilirubin 0.5 mg/dl (0.2-1.3) 05/12/17 05:50 Direct Bilirubin 0.3 mg/ml (0.0-0.4) 05/11/17 18:23 AST 29 U/L (17-59) 05/12/17 05:50 ALT 30 U/L (21-72) 05/12/17 05:50 Alkaline Phosphatase < 20 U/L (38-126) L 05/12/17 05:50 Lactate Dehydrogenase 690 U/L (313-618) H 05/11/17 18:23 Troponin I 0.0520 ng/mL (0.00-0.120) 05/11/17 11:05 NT-Pro-B Natriuret Pep 530 pg/ml (0-900) 05/11/17 11:05 Total Protein 5.3 G/DL (6.3-8.2) L 05/12/17 05:50 Albumin 3.3 g/dL (3.5-5.0) L 05/12/17 05:50 Globulin 2.0 gm/dL (2.2-3.9) L 05/12/17 05:50 Albumin/Globulin Ratio 1.7 (1.0-2.1) 05/12/17 05:50 Triglycerides 115 mg/DL (0-149) 05/12/17 05:50 Cholesterol 93 mg/dL (0-199) 05/12/17 05:50 LDL Cholesterol Direct 48 mg/dL (0-129) 05/12/17 05:50 HDL Cholesterol 32 MG/DL (30-70) 05/12/17 05:50 Vitamin B12 845 pg/mL (239-931) 05/11/17 18:23 Folate 10.1 ng/mL 05/11/17 18:23 Homocysteine 7.9 umol/L ( <11.4) 05/11/17 17:23 Thyroxine (T4) 5.14 ug/dl (5.5-11.0) L 05/12/17 05:50 TSH 3rd Generation 1.11 mIU/ML (0.46-4.68) 05/12/17 05:50 Arterial Blood Potassium 3.6 mmol/L (3.6-5.2) 05/11/17 11:25 Urine Color Yellow (YELLOW) 05/11/17 11:30 Urine Clarity Slighty-cloudy (Clear) 05/11/17 11:30 Urine pH 7.0 (5.0-8.0) 05/11/17 11:30 Ur Specific [place] 1.015 (1.003-1.030) 05/11/17 11:30 Urine Protein Negative mg/dL (NEGATIVE) 05/11/17 11:30 Urine Glucose (UA) Neg mg/dL (Normal) 05/11/17 11:30 Urine Ketones Negative mg/dL (NEGATIVE) 05/11/17 11:30 Urine Blood Negative (NEGATIVE) 05/11/17 11:30 Urine Nitrate Negative (NEGATIVE) 05/11/17 11:30 Urine Bilirubin Negative (NEGATIVE) 05/11/17 11:30 Urine Urobilinogen 0.2-1.0 mg/dL (0.2-1.0) 05/11/17 11:30 Ur Leukocyte Esterase Neg Chloe/uL (Negative) 05/11/17 11:30 Urine RBC (Auto) < 1 /hpf (0-3) 05/11/17 11:30 Urine Microscopic WBC < 1 /hpf (0-5) 05/11/17 11:30 Stool Occult Blood Positive (NEGATIVE) H 05/12/17 12:17 Anti-Parietal Cell Ab Negative (Negative) 05/11/17 17:23 Intrins Factor Block Ab Negative (Negative) 05/11/17 17:23 Blood Type A NEGATIVE 05/11/17 11:55 Antibody Screen Negative 05/11/17 11:55 Crossmatch See Detail 05/11/17 11:55 BBK History Checked Patient has bt 05/11/17 11:55 - Hospital Course Hospital Course: 81 year old male with PMHx Paroxysmal Atrial Fibrillation, CAD, Bovine Transcatheter Valve Replacement, HTN, 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 He states that last night 05/10/17 he started to experience difficulty breathing with shortness of breath. He used his albuterol nebulizer and this improved his symptoms and allowed him to go to sleep. After he woke up this morning and started to get ready for his day, his shortness of breath returned, along with some blurriness of vision. Patient was brought To ER for evaluation In ER he was found to have Hgb 6, refused guiac test , denied blood per rectum but stated that his bowel movement is black. He has been off Coumadin for more than 2 weeks ( from his PMD , unknown reason). occult blood test sent and came back as positive. He was started on protonix 40 mg IV Bid , transfused 4 unit PRBc with Hgb today 8.6. Gi was consulted and patient had EGD that showed no active bleeding or ulcer. During this admission he was also found to have COPD exacerbation , started on solumedrol IV, Duonebs, o2 Via NC and pulmonary was consulted . Patient clinically improved , returning to his baseline SOB and solumedrol tapered. 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 Jeremías Arias as out patient for thrombocytopenia follow up with his feather renovator Dr. Sandhu. as per GI patient is high risk of bleeding but may be started on anticoagulation if need with close monitoring once on PPI. Will leave the decision up to his feather renovator and PMD 1. Anemia of GI bleed most likely upper GI bleed since patient had melena and occult blood is positive s/p 4 unit PRBC transfusion with Hgb 8.6 from 6. Hematology and GI consulted Started Protonix 40 mg IV BId. Wll d/c on Protonic 40m mg po daily Anemia work up most likely consistent with acute/ subacute bleed EGD showed no acute bleed. 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 Morgan consulted and case discussed . no further work up necessary Solumedrol tapered and discontinued fast 3.Paroxysmal atrial fibrillation rate controlled He has Bovine Aortic Valve Replacement Patient explains that his PMD Dr. Franz discontinued Coumadin roughly 2 weeks ago. INR is 1.[address] Sandhu appreciated. As per Gi patient has no active bleeding. may restart anticoagulation if necessary after PPI started. patient to follow up with his PMD and feather renovator before making decision. He is high risk for bleeding 4. Coronary artery disease stable patient has no CHF 2D Echocardiogram 03/02/17 showed mild concentric LVH, LVSF normal, EF estimated at 65-70%, mild aortic stenosis, biprosthetic aortic valve Cardiology Dr. Abrahan Sandhu consulted . Medical management Crestor 40 mg PO 1x/day 5.Hypothyroidism continue Levothyroxine 25 mcg PO 1x/day 6. HTN (hypertension) controlled Lasix 40 mg PO 1x/day 7.Hyperlipidemia on statin 8. 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 DVt prophylaxis SCD no anticoagulation Discharge Exam - Head Exam Head Exam: ATRAUMATIC, NORMAL INSPECTION, NORMOCEPHALIC Additional comments: obese , chronically ill - Eye Exam Eye Exam: EOMI, PERRL Pupil Exam: NORMAL ACCOMODATION - ENT Exam ENT Exam: Mucous Membranes Moist, Normal Exam - Neck Exam Neck exam: Full Rom, Normal Inspection - Respiratory Exam Respiratory Exam: Accessory Muscle Use, Prolonged Expiratory Phase. absent: Rhonchi, Wheezes - Cardiovascular Exam Cardiovascular Exam: Irregular Rhythm. absent: JVD - GI/Abdominal Exam GI & Abdominal Exam: Distended, Normal Bowel Sounds, Soft. absent: Guarding, Rebound, Tenderness - Rectal Exam Rectal Exam: Deferred - Extremities Exam Extremities exam: normal inspection, pedal pulses present - Back Exam Back exam: NORMAL INSPECTION - Neurological Exam Neurological exam: Alert, CN II-XII Intact, Oriented x3, Reflexes Normal - Psychiatric Exam Psychiatric exam: Normal Affect - Skin Skin Exam: Dry, Pallor, Warm Discharge Plan - Discharge Medications Prescriptions: Pantoprazole Sodium [Protonix] 40 mg PO DAILY #30 tablet.dr - Follow Up Plan Condition: IMPROVED Disposition: HOME/ ROUTINE Patient education suggested?: Yes Instructions: COPD (Chronic Obstructive Pulmonary Disease) (DC), Anemia (DC) Additional Instructions: No strenous activity, To follow-up w/ Primary Doctor in one week and to call for appointment.Heart healthy low fat, low cholesterol diet. Referrals: Ayaka Santo MD [Family Provider] - Severiano Nina MD [Staff Provider] -
--- NOTE | 2017-05-14 13:00 | CP.PCM.PN ---
Subjective - Date & Time of Evaluation Date of Evaluation: 05/14/17 Time of Evaluation: 13:00 - Subjective Subjective: no new pulmonary findings lungs-fair aeration scheduled for discharge home today Objective - Vital Signs/Intake and Output Vital Signs (last 24 hours): Temp Pulse Resp BP Pulse Ox 97.5 F L 65 18 119/51 L 97 05/14/17 12:06 05/14/17 12:06 05/14/17 12:06 05/14/17 12:06 05/14/17 12:06 Intake and Output: 05/14/17 05/14/17 06:59 18:59 Intake Total 150 Balance 150 - Medications Medications: Current Medications Atorvastatin Calcium (Lipitor) 80 mg PO DAILY [facility] Last Admin: 05/14/17 10:16 Dose: 80 mg Docusate Sodium (Colace) 100 mg PO BID [facility] Last Admin: 05/14/17 10:14 Dose: 100 mg Ferrous Sulfate (Feosol) 325 mg PO TID [facility] Last Admin: 05/14/17 10:15 Dose: 325 mg Furosemide (Lasix) 40 mg PO DAILY [facility] Last Admin: 05/14/17 10:15 Dose: 40 mg Methylprednisolone 60 mg/ (Sodium Chloride) 50.96 mls @ 101.92 mls/hr IV Q8 [facility] Last Admin: 05/14/17 10:17 Dose: 101.92 mls/hr Ipratropium Zachary (Atrovent) 0.5 mg IH RQ6 PRN PRN Reason: Shortness of Breath Levothyroxine Sodium (Synthroid) 25 mcg PO DAILY@0630 [facility] Last Admin: 05/14/17 06:15 Dose: Not Given Multivitamins/Minerals (Therapeutic-M Tab) 1 tab PO HS [facility] Last Admin: 05/13/17 21:07 Dose: 1 tab Nitroglycerin (Nitrostat Sl Tab) 0.4 mg SL Q5MIN PRN PRN Reason: chest pain Pantoprazole Sodium (Protonix Inj) 40 mg IVP BID@0900,2100 [facility] Last Admin: 05/14/17 10:16 Dose: 40 mg Fluticasone/Salmeterol (Advair Diskus 250/50) 1 puff IH Q12H [facility] Last Admin: 05/14/17 01:45 Dose: 1 puff Tiotropium Zachary (Spiriva) 18 mcg IH DAILY [facility] Last Admin: 05/14/17 10:17 Dose: 18 mcg - Labs Labs: 05/14/17 07:46 05/14/17 07:46 PT 12.1 Seconds (9.8-13.1) 05/11/17 11:05 INR 1.2 (0.9-1.2) 05/11/17 11:05 APTT 30.0 Seconds (25.6-37.1) 05/11/17 11:05
--- NOTE | 2017-05-14 15:25 | PQF GENQUE ---
Dr. Pompa, Please specify the type and acuity of heart failure in your progress notes: if a current dx ; VERSUS: No CHF: history only and not chronic OR Combined systolic and diastolic Diastolic Systolic Other (please specify) Clinically unable to determine Unknown Acute Chronic Acute on chronic Other (please specify) Clinically unable to determine Unknown Hx. of CHF listed in multiple notes: other current dxs. include: HTN: Assessment and Plan: Lasix 40 mg PO 1x/day Status: Chronic This form is a permanent part of the medical record Clarification of your documentation is requested to better reflect the severity of illness and intensity of treatment of your patient. Indicators present [] Specify: [] [] Specify: [] [] Specify: [] [] Specify: [] Location in the medical record that reflects the above clinical findings: [] Treatment Provided: [] PHYSICIAN'S RESPONSE Based on your medical judgment of the clinical indicators outlined above please clarify the following: [] Practitioner response [] If unable to determine, please check the box, sign and date. Present On Admission (POA) Indicator: [] Present at the time of admission [] Not present at the time of admission [] Clinically Undetermined In responding to this query, please exercise your independent professional judgment. The fact that a question is asked does not imply that any particular answer is desired or expected. Thank you for your clarification on this documentation. If you have any questions please call. * Thank you, Sarina Tsai RN BSN ext. #[phone] MTDD
[2017-05-14 17:00] VITALS: BP 116/60; PULSE 62; RESP 14; TEMP 97.8; O2SAT 95
[2017-05-14 18:09] LABS: METHYLMALONIC ACID,SERUM 481 nmol/L (87-318)
== END 2017-05-14 19:12 | disposition home or self-care (01) | DRG 191 ==
LOC: H.ER 10:39 → H.ERHOLD 12:16 → H.TEL 14:07
PROVIDERS: ADMIT Family Medicine; ATTEND Family Medicine
PROC: 30233N1 Transfusion of Nonautologous Red Blood Cells into Peripheral Vein, Percutaneous Approach (ICD-10-PCS; 2017-05-11)
PROC: 3E0F73Z Introduction of Anti-inflammatory into Respiratory Tract, Via Natural or Artificial Opening (ICD-10-PCS; 2017-05-11)
PROC: 3E0F7GC Introduction of Other Therapeutic Substance into Respiratory Tract, Via Natural or Artificial Opening (ICD-10-PCS; 2017-05-11)
PROC: 0DB38ZX Excision of Lower Esophagus, Via Natural or Artificial Opening Endoscopic, Diagnostic (ICD-10-PCS; 2017-05-14)
PROC: 0DB78ZX Excision of Stomach, Pylorus, Via Natural or Artificial Opening Endoscopic, Diagnostic (ICD-10-PCS; principal; 2017-05-14 08:00)
DX: J44.1 Chronic obstructive pulmonary disease with (acute) exacerbation (principal); B37.81 Candidal esophagitis; K92.1 Melena; J98.11 Atelectasis; Z68.41 Body mass index [BMI] 40.0-44.9, adult; D50.0 Iron deficiency anemia secondary to blood loss (chronic); D69.6 Thrombocytopenia, unspecified; I48.0 Paroxysmal atrial fibrillation; I48.2 Chronic atrial fibrillation; Z99.81 Dependence on supplemental oxygen; I35.0 Nonrheumatic aortic (valve) stenosis; I11.0 Hypertensive heart disease with heart failure; I50.9 Heart failure, unspecified; I25.10 Atherosclerotic heart disease of native coronary artery without angina pectoris; E03.9 Hypothyroidism, unspecified; G47.33 Obstructive sleep apnea (adult) (pediatric); K44.9 Diaphragmatic hernia without obstruction or gangrene; E78.5 Hyperlipidemia, unspecified; E66.9 Obesity, unspecified; J45.909 Unspecified asthma, uncomplicated; E78.00 Pure hypercholesterolemia, unspecified; M19.90 Unspecified osteoarthritis, unspecified site; Z79.01 Long term (current) use of anticoagulants; Z87.01 Personal history of pneumonia (recurrent); Z95.2 Presence of prosthetic heart valve; Z95.3 Presence of xenogenic heart valve; Z87.891 Personal history of nicotine dependence

== ENCOUNTER 2017-06-16 08:53 | Day surgery (SDC) | payer MEDICARE, MEDICAID ==
[2017-06-16] MEDS ORDERED: Lactated Ringer's 500 ML IV ONE (09:23)
[2017-06-16] MEDS ORDERED: Propofol 10 mg/ml Inj (20 ML) ONE (10:33)
[2017-06-16] MEDS ORDERED: Etomidate 20 mg/10ml Inj IV ONE (10:44)
[2017-06-16 11:11] VITALS: TEMP 97.2; O2SAT 99
[2017-06-16 11:20] VITALS: BP 130/68; PULSE 63; RESP 24
== END 2017-06-16 12:40 | disposition home or self-care (01) ==
LOC: H.ENDO 08:53
PROVIDERS: ATTEND Internal Medicine Gastroenterology
DX: Z12.11 Encounter for screening for malignant neoplasm of colon (principal); I48.91 Unspecified atrial fibrillation; I73.9 Peripheral vascular disease, unspecified; J44.9 Chronic obstructive pulmonary disease, unspecified; E78.5 Hyperlipidemia, unspecified; I10 Essential (primary) hypertension; D64.9 Anemia, unspecified; K63.5 Polyp of colon
CPT/HCPCS: 45380; 88305; J2704; J7120

== ENCOUNTER 2017-10-02 20:51 | Emergency (ER) | payer MEDICARE, MEDICAID ==
[2017-10-02 20:51] VITALS: BMI 40.5
[2017-10-02 20:59] VITALS: BP 139/57; PULSE 73; RESP 16; TEMP 98.9; O2SAT 98
--- NOTE | 2017-10-02 21:48 | ED PDOC ---
Lower Extremity Pain/Injury Time Seen by Provider: 10/02/17 21:09 Chief Complaint (Nursing): Lower Extremity Problem/Injury Chief Complaint (Provider): Left foot pain History Per: Patient History/Exam Limitations: no limitations Additional Complaint(s): 82 year old male with a past medical history of diabetes who presents to the emergency department with a complaint of a left foot pain after he slipped and inverted his left foot but caught himself before falling completely. Denies injuring anything else before falling. Past Medical History Vital Signs: Last Vital Signs Temp 98.9 F 10/02/17 20:55 Pulse 73 10/02/17 20:55 Resp 16 10/02/17 20:55 BP 139/57 L 10/02/17 20:55 Pulse Ox 98 10/02/17 20:55 - Medical History PMH: Anemia, Arthritis, Asthma, Atrial Fibrillation, CAD, CHF, COPD, Emphysema, Fractures (CERVICAL C7), HTN, Hypercholesterolemia, Hypothyroidism Denies: HIV, Chronic Kidney Disease - Family History Family History: States: Unknown Family Hx - Home Medications Home Medications: Ambulatory Orders Medication Instructions Recorded Ibuprofen [Motrin Tab] 600 mg PO Q6 #30 tab 10/03/17 - Allergies Allergies/Adverse Reactions: Allergies Allergy/AdvReac Type Severity Reaction Status Date / Time No Known Allergies Allergy Verified 03/01/17 10:03 Review of Systems ROS Statement: Except As Marked, All Systems Reviewed And Found Negative (As per HPI, otherwise negative) Musculoskeletal: Positive for: Foot Pain (Left) Physical Exam - Reviewed Nursing Documentation Reviewed: Yes Vital Signs Reviewed: Yes - Physical Exam Appears: Positive for: Non-toxic, No Acute Distress Head Exam: Positive for: ATRAUMATIC, NORMAL INSPECTION, NORMOCEPHALIC Skin: Positive for: Normal Color, Warm, Dry Extremity: Positive for: Normal ROM (Full ROM of the knee ), Other (Distal extremity show signs of peripheral vascular disease with poor circulation. Tenderness noted to the fifth metatarsal base and lateral and medial malleolus) . Negative for: Tenderness (No hip tenderness), Swelling Neurologic/Psych: Positive for: Alert, Oriented (x3) - ECG O2 Sat by Pulse Oximetry: 98 (RA) Pulse Ox Interpretation: Normal Medical Decision Making Medical Decision Making: Time: 2113 Initial Impression: Ankle sprain Initial Plan: Motrin 600 mg PO Left foot x-ray Left ankle x-ray reevaluation 2099 Pt. w/ fracture of fifth metatarsal. Seen by podiatry, placed in boot. Pt. to f/u w/ Podiatry on Wednesday, instructions given. Ambulance provided to take patient home. Return precautions discussed. Scribe~Attestation: Documented by Ngoc Baltazar, acting as a scribe for Christopher Kmi MD. Provider Scribe~Attestation: All medical record entries made by the Scribe were at my direction and personally dictated by me. I have reviewed the chart and agree that the record accurately reflects my personal performance of the history, physical exam, medical decision making, and the department course for this patient. I have also personally directed, reviewed, and agree with the discharge instructions and disposition. Disposition - Clinical Impression Clinical Impression: Fracture of 5th metatarsal - Disposition Referrals: Magno Amaya DPM [Staff Provider] - Disposition: Routine/Home Disposition Time: 21:00 Condition: STABLE Additional Instructions: Jarad a la oficina de Dr. Magno Amaya (anesthesia attending, [facility]) en [facility]. Prescriptions: Ibuprofen [Motrin Tab] 600 mg PO Q6 #30 tab Instructions: Toe Fracture (ED) Forms: [facility] (Kinyarwanda) Print Language: KUWAITI
--- NOTE | 2017-10-02 23:10 | CP.PCM.CON ---
History of Present Illness - History of Present Illness History of Present Illness: 82 y/o male with PMHx of atrial fibrillation, CAD, transcatheter valve replacement, DM, PVD, acute respiratory failure, emphysema, HTN, obesity, hypothyroidism, EVELYN, pneumonia and thrombocytopenia seen in ED for left foot pain after sustaining an inversion injury with a fall. Pt says it is painful to walk or bear weight. It is also tender to touch. He states he cannot tolerate crutches and would prefer not to have on a splint because he thinks he will fall. At present, denies F/C/N/V/CP/SOB. States he chronically has a cough and difficulty breathing deeply due to his emphysema. PSHx: Denies ALL: Denies Social: Lives alone; denies tobacco, alcohol, illicit drug use Review of Systems - Review of Systems All systems: reviewed and no additional remarkable complaints except (per HPI) Past Patient History - Past Medical History & Family History Past Medical History?: Yes - Past Social History Smoking Status: Never Smoked - CARDIAC Hx Atrial Fibrillation: Yes Hx Congestive Heart Failure: Yes Hx Hypercholesterolemia: Yes Hx Hypertension: Yes - PULMONARY Hx Asthma: Yes Hx Chronic Obstructive Pulmonary Disease (COPD): Yes Hx Emphysema: Yes - NEUROLOGICAL Hx Neurological Disorder: No - HEENT Hx HEENT Problems: No - RENAL Hx Chronic Kidney Disease: No - ENDOCRINE/METABOLIC Hx Hypothyroidism: Yes - HEMATOLOGICAL/ONCOLOGICAL Hx Anemia: Yes Hx Human Immunodeficiency Virus (HIV): No - INTEGUMENTARY Hx Dermatological Problems: No - MUSCULOSKELETAL/RHEUMATOLOGICAL Hx Arthritis: Yes Hx Fractures: Yes (CERVICAL C7) - GASTROINTESTINAL Hx Gastrointestinal Disorders: No - GENITOURINARY/GYNECOLOGICAL Hx Genitourinary Disorders: No - PSYCHIATRIC Hx Psychophysiologic Disorder: No Hx Emotional Abuse: No Hx Physical Abuse: No Hx Substance Use: No - SURGICAL HISTORY Hx Surgeries: Yes Hx Herniorrhaphy: Yes (UMBILICAL) Other/Comment: RT FOOT SURGERY - ANESTHESIA Hx Anesthesia: Yes Hx Anesthesia Reactions: No Hx Malignant Hyperthermia: No Meds Home Medications: Home Medication List Medication Instructions Recorded Confirmed Type Ibuprofen [Motrin Tab] 600 mg PO Q6 #30 tab 10/03/17 Rx Allergies/Adverse Reactions: Allergies Allergy/AdvReac Type Severity Reaction Status Date / Time No Known Allergies Allergy Verified 03/01/17 10:03 Physical Exam - Constitutional Appears: Well, Non-toxic, No Acute Distress - Extremities Exam Additional comments: Lower extremity exam: Vasc: DP/PT pulses 1/4 B/L. Temp gradient warm to cool B/L. CFT < 3sec to all digits. +2 pitting edema noted to B/L lower extremities distal to tibial tuberosity Derm: Hyperpigmentation due to hemosiderin deposits B/L. No ecchymosis, no open lesions, no erythema Neuro: Protective sensation slightly diminished B/L via SWMF assessment Ortho: Tenderness to palpation of left foot 5th met base. Moderate tenderness elicited upon passive inversion and dorsiflexion at left ankle - Neurological Exam Neurological exam: Alert, Oriented x3 - Psychiatric Exam Psychiatric exam: Normal Affect, Normal Mood Results - Vital Signs Recent Vital Signs: Last Vital Signs Temp 98.9 F 10/02/17 20:55 Pulse 73 10/02/17 20:55 Resp 16 10/02/17 20:55 BP 139/57 L 10/02/17 20:55 Pulse Ox 98 10/02/17 21:51 Assessment & Plan - Assessment and Plan (Free Text) Assessment: 82 y/o male with left foot 5th metatarsal base fracture secondary to trauma Plan: Pt seen and evaluated in ED Discussed with attending Dr. Amaya X-rays of L foot reveal avulsion fracture of left foot 5th metatarsal base, nondisplaced, possibly chronic in nature due to bony callus formation within fracture line Patient refusing splint with crutches, stating he cannot tolerate it Patient placed in Rangel compression dressing and surgical shoe dispensed Patient advised to minimize weight bearing on the LLE and keep dressing clean/ dry/intact until follow up with podiatry Patient instructed to follow up on Wednesday with Dr. Amaya in his office Thank you for this consult
--- NOTE | 2017-10-03 10:44 | RAD ---
PROCEDURE: Left Foot Radiographs. HISTORY: s/p fall COMPARISON: None. FINDINGS: BONES: Three views of the left foot were performed for left foot pain and trauma. There is no abnormal widening of the proximal 1st and 2nd tarsal metatarsal joint. There appears to be the suggestion of small avulsion of the proximal left 5th metatarsal although there does not appear to be significant adjacent soft tissue swelling. This may be chronic in age. Degenerative changes are seen elsewhere in the 1st tarsometatarsal joint and mid tarsal bone region. Subtalar joint is unremarkable. Calcaneal spurs are seen. Talar dome is normal in outline. Remainder of the metatarsals are intact. No dislocation of the phalanges is seen. No erosions are noted. Cuboid bone is intact. Distal fibula is intact. JOINTS: See above SOFT TISSUES: See above OTHER FINDINGS: None. IMPRESSION: Possible avulsion fracture of the proximal left 5th metatarsal although this could be chronic in age and should be correlated with symptoms. No appreciable fractures elsewhere. Degenerative changes are noted.
--- NOTE | 2017-10-03 10:46 | RAD ---
PROCEDURE: Left Ankle Radiographs. HISTORY: s/p fall COMPARISON: None FINDINGS: BONES: Three views of the left ankle were performed for ankle pain and trauma. There is mild soft tissue swelling overlying the lateral malleolus. Very tiny chronic appearing avulsion is noted along the distal left fibula. No ankle mortise widening is seen. Talar dome is normal in outline. Subtalar joint is unremarkable. Calcaneal spurs are incidentally noted. Degenerative changes are seen in the medial and lateral ankle region. Talar dome is normal in outline. There is a possible small avulsion along the proximal left 5th metatarsal. JOINTS: See above SOFT TISSUES: Mild soft tissue swelling. OTHER FINDINGS: None. IMPRESSION: Soft tissue swelling overlying the lateral malleolus consistent with ankle sprain. Possible small avulsion fracture of the proximal left 5th metatarsal seen better on the x-ray exam of the foot of this same day. No ankle mortise widening. No appreciable acute ankle fracture.
== END 2017-10-03 00:55 | disposition home or self-care (01) ==
LOC: H.ER 20:51
DX: S92.352A Displaced fracture of fifth metatarsal bone, left foot, initial encounter for closed fracture (principal); X50.9XXA Other and unspecified overexertion or strenuous movements or postures, initial encounter; Y92.89 Other specified places as the place of occurrence of the external cause; D64.9 Anemia, unspecified; E03.9 Hypothyroidism, unspecified; E66.9 Obesity, unspecified; E78.00 Pure hypercholesterolemia, unspecified; G47.33 Obstructive sleep apnea (adult) (pediatric); I11.0 Hypertensive heart disease with heart failure; J44.9 Chronic obstructive pulmonary disease, unspecified; J96.00 Acute respiratory failure, unspecified whether with hypoxia or hypercapnia; Z95.2 Presence of prosthetic heart valve

== ENCOUNTER 2018-01-08 15:04 | Inpatient (IN) | payer MEDICARE, MEDICAID ==
[2018-01-08 15:05] VITALS: BMI 40.5
[2018-01-08] MEDS ORDERED: Sodium Chloride 0.9% 500 ML IV STA (15:36)
[2018-01-08] MEDS ORDERED: Albuterol-Ipratrop 3 mg / 0.5 (3 ml) UD INH STA (15:36)
[2018-01-08] MEDS ORDERED: Albuterol-Ipratrop 3 mg / 0.5 (3 ml) UD IH STA (15:36)
--- NOTE | 2018-01-08 15:48 | ED PDOC ---
Syncope/Near Syncope/Dizziness Time Seen by Provider: 01/08/18 15:33 Chief Complaint (Nursing): Dizziness/Lightheaded Chief Complaint (Provider): Dizziness History Per: Patient History/Exam Limitations: no limitations Onset/Duration Of Symptoms: Hrs Current Symptoms Are (Timing): Still Present Fall Associated With With Symptoms: No Additional Complaint(s): 82 year old male with past medical history of emphysema, hyperlipidemia and heart surgery presents to the emergency room complaining of feeling dizzy when waking up. Patient states his symptoms began this morning. Also notes generalized weakness. Denies nausea, vomiting, chest pain, abdominal pain, leg pain/swelling, chest pain, back pain, palpitations, lightheadedness, cough, shortness of breath. Of note: Patient states that he cannot move his legs but this symptom is not new as he has not been able to walk for several years. PMD: Ayaka Carnes Past Medical History Reviewed: Nursing Documentation, Vital Signs Vital Signs: Last Vital Signs Temp 98.0 F 01/08/18 15:06 Pulse 79 01/08/18 15:06 Resp 16 01/08/18 15:06 BP 107/50 L 01/08/18 15:06 Pulse Ox 91 L 01/08/18 15:06 - Medical History PMH: Anemia, Arthritis, Asthma, Atrial Fibrillation, CAD, CHF, COPD, Emphysema ( on oxygen), HTN, Hypercholesterolemia, Hypothyroidism Denies: HIV, Chronic Kidney Disease - Surgical History Other surgeries: Heart Surgery - Family History Family History: States: Unknown Family Hx - Social History Current smoker - smoking cessation education provided: No Alcohol: None Drugs: Denies - Home Medications Home Medications: Ambulatory Orders Medication Instructions Recorded Unobtainable 01/08/18 - Allergies Allergies/Adverse Reactions: Allergies Allergy/AdvReac Type Severity Reaction Status Date / Time No Known Allergies Allergy Verified 01/08/18 15:05 Review of Systems ROS Statement: Except As Marked, All Systems Reviewed And Found Negative Constitutional: Positive for: Weakness (generalized). Negative for: Fever, Chills Cardiovascular: Negative for: Chest Pain, Palpitations Respiratory: Negative for: Cough, Shortness of Breath Gastrointestinal: Negative for: Nausea, Vomiting, Abdominal Pain, Diarrhea Musculoskeletal: Negative for: Back Pain, Leg Pain (no swelling) Neurological: Positive for: Dizziness. Negative for: Headache Physical Exam - Reviewed Nursing Documentation Reviewed: Yes Vital Signs Reviewed: Yes - Physical Exam Appears: Positive for: Non-toxic, No Acute Distress Head Exam: Positive for: ATRAUMATIC, NORMAL INSPECTION, NORMOCEPHALIC Skin: Positive for: Normal Color, Warm, Dry. Negative for: Rash Eye Exam: Positive for: Normal appearance, EOMI, PERRL ENT: Positive for: Normal ENT Inspection. Negative for: Nasal Congestion, Tonsillar Exudate, Tonsillar Swelling Neck: Positive for: Normal, Painless ROM, Supple Cardiovascular/Chest: Positive for: Regular Rate, Rhythm, Chest Non Tender. Negative for: Tachycardia Respiratory: Positive for: Decreased Breath Sounds. Negative for: Rales, Rhonchi, Wheezing, Respiratory Distress Gastrointestinal/Abdominal: Positive for: Normal Exam, Bowel Sounds, Soft. Negative for: Tenderness, Mass, Guarding, Rebound Back: Positive for: Normal Inspection. Negative for: L CVA Tenderness, R CVA Tenderness Extremity: Negative for: Normal ROM (Chronically not able to move lower extremities), Deformity (no deformities to lower extremities), Swelling (no swelling to lower extremities) Neurologic/Psych: Positive for: Alert, building coordinator II-XII (cranial nerves all intact), Oriented, Other (upper extremities 5/5 strength b/l; lower chronically unable to move.). Negative for: Aphasia, Facial Droop - Laboratory Results Result Diagrams: 01/08/18 16:00 Interpretation Of Abn Labs: no acute; labs similar to old - ECG ECG: Positive for: Interpreted By Me, Viewed By Me ECG Rhythm: Positive for: Sinus Rhythm, Right Bundle Branch Block O2 Sat by Pulse Oximetry: 91 (RA) Pulse Ox Interpretation: Abnormal - Radiology X-Ray: Interpreted by Me, Viewed By Me X-Ray Interpretation: No Acute Disease - CT Scan/US head Other Rad Studies (CT/US): Read By Radiologist Other Rad Interpretation: no acute - Progress ED Course And Treament: 2137: Stable. AAOx3. Wanted x-ray of hand due to fall recently. 2036: Stable. AAOx3. Spoke with Dr. Skelton. Will admit tele obs. Labs similar to old. Pt. agitated. Will give 1mg ativan. Medical Decision Making Medical Decision Makin Initial Impression 82 year old male presenting with generalized weakness and dizziness Initial Plan: * ABG * CT Head w/o Contrast * EKG * CMP * Troponin * Udip * CBC * Partial Thromboplastin * Prothrombin Time * Chest X-Ray * Antivert 25mg PO * Albuterol 3 mL INH * Sodium Chloride 500mL IV 100mls/hr * Solumedrol 125mg IVP * Blood Culture * Urine Culture * Peak Flow pre/post * Urinalysis * Reevaluation 1728 PROCEDURE: CT HEAD WITHOUT CONTRAST. HISTORY: headache COMPARISON: None available. TECHNIQUE: Axial computed tomography images were obtained through the head/brain without intravenous contrast. Radiation dose: Total exam DLP = mGy-cm. This CT exam was performed using one or more of the following dose reduction techniques: Automated exposure control, adjustment of the mA and/or kV according to patient size, and/or use of iterative reconstruction technique. FINDINGS: HEMORRHAGE: No intracranial hemorrhage. BRAIN: No mass effect or edema. Mild atrophy and mild chronic periventricular white matter ischemic disease. VENTRICLES: Unremarkable. No hydrocephalus. CALVARIUM: Unremarkable. PARANASAL SINUSES: Unremarkable as visualized. No significant inflammatory changes. MASTOID AIR CELLS: Unremarkable as visualized. No inflammatory changes. OTHER FINDINGS: None. IMPRESSION: No bleed. Documented by Nely Ross acting as a scribe for Chance Mckeon MD. All medical record entries made by the Scribe were at my direction and personally dictated by me. I have reviewed the chart and agree that the record accurately reflects my personal performance of the history, physical exam, medical decision making, and the department course for this patient. I have also personally directed, reviewed, and agree with the discharge instructions and disposition. Disposition - Clinical Impression Clinical Impression: Dizziness, Weakness - Patient ED Disposition Is Patient to be Admitted: Yes Counseled Patient/Family Regarding: Studies Performed, Diagnosis - Disposition Disposition Time: 22:00 Condition: FAIR - Pt Status Changed To: Hospital Disposition Of: Observation - POA Present On Arrival: None
[2018-01-08 16:53] LABS: BASO % 0.5 % (0.0-2.0); LYMPH # 0.6 K/uL (1.0-4.3); LYMPH % 10.6 % (20.0-40.0); MEAN CELL VOLUME 87.9 fl (80.0-94.0); MEAN CORPUSCULAR HEMOGLOBIN 29.9 pg (27.0-31.0); MEAN CORPUSCULAR HGB CONC 34.1 g/dL (33.0-37.0); MEAN PLATELET VOLUME 8.1 fl (7.2-11.7); MONO % 16.8 % (0.0-10.0); NEUT # 4.4 K/uL (1.8-7.0); NEUT % 72.1 % (50.0-75.0); NRBC % 0.3 % (0.0-0.0); RBC 2.62 Mil/uL (4.40-5.90); RED CELL DISTRIBUTION WIDTH 16.7 % (11.5-14.5); WHITE BLOOD COUNT 6.1 K/uL (4.8-10.8)
[2018-01-08 17:09] LABS: INR 1.1 (0.9-1.2); PARTIAL THROMBOPLASTIN TIME 32.8 Seconds (25.6-37.1); PROTHROMBIN TIME 12.4 Seconds (9.8-13.1)
[2018-01-08 17:16] LABS: HEMOGLOBIN 7.8 g/dL (12.0-18.0)
--- NOTE | 2018-01-08 17:30 | CT ---
PROCEDURE: CT HEAD WITHOUT CONTRAST. HISTORY: headache COMPARISON: None available. TECHNIQUE: Axial computed tomography images were obtained through the head/brain without intravenous contrast. Radiation dose: Total exam DLP = mGy-cm. This CT exam was performed using one or more of the following dose reduction techniques: Automated exposure control, adjustment of the mA and/or kV according to patient size, and/or use of iterative reconstruction technique. FINDINGS: HEMORRHAGE: No intracranial hemorrhage. BRAIN: No mass effect or edema. Mild atrophy and mild chronic periventricular white matter ischemic disease. VENTRICLES: Unremarkable. No hydrocephalus. CALVARIUM: Unremarkable. PARANASAL SINUSES: Unremarkable as visualized. No significant inflammatory changes. MASTOID AIR CELLS: Unremarkable as visualized. No inflammatory changes. OTHER FINDINGS: None. IMPRESSION: No bleed.
[2018-01-08 17:51] LABS: SQUAMOUS EPITHIAL < 1 /hpf (0-5); URINE BILIRUBIN NEGATIVE (NEGATIVE); URINE BLOOD NEGATIVE (NEGATIVE); URINE CLARITY CLEAR (Clear); URINE COLOR YELLOW (YELLOW); URINE GLUCOSE (UA) NEG (Normal); URINE LEUKOCYTE ESTERASE NEG Leu/uL (Negative); URINE PROTEIN NEGATIVE (NEGATIVE)
[2018-01-08] MEDS ORDERED: Albuterol-Ipratrop 3 mg / 0.5 (3 ml) UD ONE (18:35)
[2018-01-08 19:37] LABS: ABG ALLEN TEST YES; ARTERIAL BLOOD GAS HCO3 32.3 mmol/L (21-28); ARTERIAL BLOOD GAS O2 SAT 95.7 % (95-98); ARTERIAL BLOOD GAS PCO2 51 mm/Hg (35-45); ARTERIAL BLOOD GAS PH 7.45 (7.35-7.45); ARTERIAL BLOOD GAS PO2 56 mm/Hg (80-100)
[2018-01-08 22:08] LABS: BLOOD UREA NITROGEN 18 mg/dl (9-20); CALCIUM 8.5 mg/dL (8.4-10.2); GFR AFRICAN-AMERICAN > 60; GFR NON-AFRICAN AMERICAN > 60
[2018-01-08 22:09] LABS: ALB/GLOB RATIO 1.3 (1.0-2.1); ALBUMIN 3.1 g/dL (3.5-5.0); AST/SGOT 36 U/L (17-59); B-TYPE NATRIURETIC PEPTIDE 736 pg/ml (0-900)
[2018-01-08 22:10] LABS: ALT/SGPT 30 U/L (21-72)
--- NOTE | 2018-01-08 22:22 | CP.PCM.HP ---
History of Present Illness - History of Present Illness History of Present Illness: PMD: Ayaka Carnes MD Chief Complaint:Dizziness/Lightheadedness The patient was seen and examined in the ED HPI: the Hx was obtained from the patient and after review of the medical record. He is an 82 years old male, wheel chair bound for more than 2 years,who came to the ED referring Dizziness with lightheaded on getting up from bed today. This was associated with generalized weakness and mild headache. No nausea, vomits, dysuria nor diarrhea. He has hx of Paroxysmal A Fib, CAD Emphysemia on Home Oxygen, and CHF. He was last admitted 05/14/17 with weakness and dizziness when his Hb was found to be 6.0g. Today his dizziness improved with Meclizine. PMH: HLD; Anemia; Arthritis; Paroxysmal of Atrial Fibrillation, CAD, Aortic Stenosis; systolic CHF: COPD, Emphysema (on Home oxygen), HTN, HLD, obesity; Chronic Thrombocytopenia; C7 Fracture; Hypothyroidism PSH:Valvular surgery( s/p Bovine transcatheter SH:Former Smoker; no illegal drug use No illegal drug use; Live alone at home with Nurse Aide in AM and PM FH: States: Unknown Family Hx Medication: Reviewed Present on Admission - Present on Admission Any Indicators Present on Admission: No History of DVT/PE: No History of Uncontrolled Diabetes: No Urinary Catheter: No Decubitus Ulcer Present: No Review of Systems - Constitutional Constitutional: absent: Chills, Fatigue, Fever, Headache - EENT Eyes: absent: Diplopia, Photophobia, Requires Corrective Lenses, Sees Flashes Nose/Mouth/Throat: Sinus Pain. absent: Epistaxis, Nasal Congestion, Sinus Pressure - Cardiovascular Cardiovascular: Dyspnea, Lightheadedness. absent: Chest Pain, Palpitations - Respiratory Respiratory: Dyspnea, Hemoptysis, Wheezing. absent: Cough - Gastrointestinal Gastrointestinal: absent: Constipation, Diarrhea, Nausea, Vomiting - Genitourinary Genitourinary: absent: Dysuria, Flank Pain, Hematuria, Urinary Frequency - Musculoskeletal Musculoskeletal: Muscle Weakness. absent: Arthralgias, Back Pain - Integumentary Integumentary: absent: Pruritus, Rash, Skin Ulcer, Sores Additional comments: Bilateral leg pain - Neurological Neurological: Dizziness, Headaches, Weakness. absent: Confusion, Focal Weakness - Psychiatric Psychiatric: absent: Anxiety, Depression, Panic Attacks - Endocrine Endocrine: absent: Palpitations, Polydipsia, Polyphagia, Polyuria - Hematologic/Lymphatic Hematologic: absent: Easy Bleeding, Easy Bruising Past Patient History - Past Medical History & Family History Past Medical History?: Yes - Past Social History Smoking Status: Former Smoker Chewing Tobacco Use: No Cigar Use: No Alcohol: None Drugs: Denies Home Situation {Lives}: Alone - CARDIAC Hx Atrial Fibrillation: Yes Hx Congestive Heart Failure: Yes Hx Hypercholesterolemia: Yes Hx Hypertension: Yes - PULMONARY Hx Asthma: Yes Hx Chronic Obstructive Pulmonary Disease (COPD): Yes Hx Emphysema: Yes (on oxygen) - NEUROLOGICAL Hx Neurological Disorder: No - HEENT Hx HEENT Problems: No - RENAL Hx Chronic Kidney Disease: No - ENDOCRINE/METABOLIC Hx Hypothyroidism: Yes - HEMATOLOGICAL/ONCOLOGICAL Hx Anemia: Yes Hx Human Immunodeficiency Virus (HIV): No - INTEGUMENTARY Hx Dermatological Problems: No - MUSCULOSKELETAL/RHEUMATOLOGICAL Hx Arthritis: Yes - GASTROINTESTINAL Hx Gastrointestinal Disorders: No - GENITOURINARY/GYNECOLOGICAL Hx Genitourinary Disorders: No - PSYCHIATRIC Hx Psychophysiologic Disorder: No Hx Emotional Abuse: No Hx Physical Abuse: No Hx Substance Use: No - SURGICAL HISTORY Hx Surgeries: Yes Hx Herniorrhaphy: Yes (UMBILICAL) Other/Comment: RT FOOT SURGERY - ANESTHESIA Hx Anesthesia: Yes Hx Anesthesia Reactions: No Hx Malignant Hyperthermia: No Meds Allergies/Adverse Reactions: Allergies Allergy/AdvReac Type Severity Reaction Status Date / Time No Known Allergies Allergy Verified 01/08/18 15:05 Physical Exam - Constitutional Appears: Agitated - Head Exam Head Exam: ATRAUMATIC, NORMAL INSPECTION, NORMOCEPHALIC - Eye Exam Eye Exam: EOMI, Normal appearance Pupil Exam: NORMAL ACCOMODATION, PERRL - ENT Exam ENT Exam: Mucous Membranes Moist, Normal Exam, Normal External Ear Exam - Neck Exam Neck exam: Positive for: Full Rom, Normal Inspection. Negative for: Lymphadenopathy, Tenderness - Respiratory Exam Respiratory Exam: Rales. absent: Rhonchi, Stridor Additional comments: Decreased Breath sounds Mild inspiratory rales at left lung - Cardiovascular Exam Cardiovascular Exam: REGULAR RHYTHM, RRR, +S1, +S2. absent: Gallop Additional comments: II/ systolic murmur at the base - GI/Abdominal Exam GI & Abdominal Exam: absent: Mass, Organomegaly Additional comments: Obese, soft non tender, +ve bowel sounds, - Rectal Exam Rectal Exam: Deferred - Extremities Exam Additional comments: Hyperpigmented shins bilateral, tender to palpation - Back Exam Back exam: NORMAL INSPECTION. absent: CVA tenderness (L), CVA tenderness (R) - Neurological Exam Neurological exam: Alert, Oriented x3, Reflexes Normal - Psychiatric Exam Psychiatric exam: Normal Affect, Normal Mood - Skin Skin Exam: Dry, Intact, Warm Additional comments: Hyperpigmentation at the left and right shins, mild tenderness on palpation. Results - Vital Signs Recent Vital Signs: Last Vital Signs Temp 98.0 F 01/08/18 15:06 Pulse 78 01/08/18 19:21 Resp 19 01/08/18 19:21 BP 116/65 01/08/18 19:21 Pulse Ox 91 L 01/08/18 22:07 - Labs Result Diagrams: 01/08/18 16:00 01/08/18 16:00 Labs: Laboratory Results - last 24 hr 01/08/18 01/08/18 01/08/18 16:00 16:00 16:00 WBC 6.1 RBC 2.62 L Hgb 7.8 L Hct 23.0 L MCV 87.9 D MCH 29.9 MCHC 34.1 RDW 16.7 H Plt Count 53 L D MPV 8.1 Neut % (Auto) 72.1 Lymph % (Auto) 10.6 L [place] % (Auto) 16.8 H Eos % (Auto) 0.0 Baso % (Auto) 0.5 Neut # (Auto) 4.4 Lymph # (Auto) 0.6 L [place] # (Auto) 1.0 H Eos # (Auto) 0.0 Baso # (Auto) 0.0 PT 12.4 INR 1.1 APTT 32.8 pCO2 pO2 HCO3 ABG pH ABG Total CO2 ABG O2 Saturation ABG Base Excess Karthik Test ABG Potassium A-a O2 Difference Glucose Lactate FiO2 Sodium 140 Potassium 4.0 Chloride 99 Carbon Dioxide 30 Anion Gap 15 BUN 18 Creatinine 0.8 Est GFR ( Amer) > 60 Est GFR (Non-Af Amer) > 60 Random Glucose 122 H Calcium 8.5 Total Bilirubin 0.6 AST 36 ALT 30 Alkaline Phosphatase 22 L Troponin I 0.0470 NT-Pro-B Natriuret Pep 736 Total Protein 5.4 L Albumin 3.1 L Globulin 2.3 Albumin/Globulin Ratio 1.3 Arterial Blood Potassium Urine Color Urine Clarity Urine pH Ur Specific [place] Urine Protein Urine Glucose (UA) Urine Ketones Urine Blood Urine Nitrate Urine Bilirubin Urine Urobilinogen Ur Leukocyte Esterase Urine RBC (Auto) Urine Microscopic WBC Ur Squamous Epith Cells 01/08/18 01/08/18 16:00 19:28 WBC RBC Hgb Hct MCV MCH MCHC RDW Plt Count MPV Neut % (Auto) Lymph % (Auto) [place] % (Auto) Eos % (Auto) Baso % (Auto) Neut # (Auto) Lymph # (Auto) [place] # (Auto) Eos # (Auto) Baso # (Auto) PT INR APTT pCO2 51 H pO2 56 L HCO3 32.3 H ABG pH 7.45 ABG Total CO2 37.0 H ABG O2 Saturation 95.7 ABG Base Excess 9.7 H Karthik Test Yes ABG Potassium 4.2 A-a O2 Difference 30.0 Glucose 137 H Lactate 1.0 FiO2 21.0 Sodium 136.0 Potassium Chloride 105.0 Carbon Dioxide Anion Gap BUN Creatinine Est GFR ( Amer) Est GFR (Non-Af Amer) Random Glucose Calcium Total Bilirubin AST ALT Alkaline Phosphatase Troponin I NT-Pro-B Natriuret Pep Total Protein Albumin Globulin Albumin/Globulin Ratio Arterial Blood Potassium 4.2 Urine Color Yellow Urine Clarity Clear Urine pH 7.0 Ur Specific [place] 1.016 Urine Protein Negative Urine Glucose (UA) Neg Urine Ketones Negative Urine Blood Negative Urine Nitrate Negative Urine Bilirubin Negative Urine Urobilinogen 2.0 Ur Leukocyte Esterase Neg Urine RBC (Auto) 1 Urine Microscopic WBC 1 Ur Squamous Epith Cells < 1 - EKG Data EKG comments: Sinus Rhythm with APC 68/min RBBB Assessment & Plan - Assessment and Plan (Free Text) Assessment: #. Dizziness #. Anemia #. COPD #. Hypothyroidism #. Chronic Thrombocytopenia Plan: 82 years old male, wheel chair bound for more than 2 years,who came to the ED referring Dizziness with lightheaded on getting up from bed today. This was associated with generalized weakness and mild headache. No nausea, vomits, dysuria nor diarrhea. He has hx of Paroxysmal A Fib, CAD Emphysemia on Home Oxygen, and CHF. #. Dizziness, lightheadedness with generalized weakness is most likely due to the Anemia, r/o CVA - Stool for Occult Blood - Transfuse one unit of PRBC - Follow Hb CT head was negative for bleed - Neuro Checks - If Dizziness continues then do MRI of brain #. COPD - Oxygen 2L/min - Duoneb - Advair #. Hypothyroidism - Synthroid - TSH #. DVT prophylaxis with SCD No Anticoagulant because of the low hemoglobin #. Chronic Thrombocytopenia - Follow Platelets. #. Code Status: Full - Date & Time Date: 01/08/18 Time: 22:22
[2018-01-09] MEDS: Levothyroxine 25 MCG TAB PO SCH (06:17)
[2018-01-09 07:42] LABS: HEMOGLOBIN 9.2 g/dL (12.0-18.0); MEAN CELL VOLUME 87.6 fl (80.0-94.0); MEAN CORPUSCULAR HEMOGLOBIN 29.9 pg (27.0-31.0); MEAN CORPUSCULAR HGB CONC 34.2 g/dL (33.0-37.0); RBC 3.07 Mil/uL (4.40-5.90); RED CELL DISTRIBUTION WIDTH 17.1 % (11.5-14.5); TROPONIN I 0.043 ng/mL (0.00-0.120); WHITE BLOOD COUNT 9.7 K/uL (4.8-10.8)
[2018-01-09] MEDS: Albuterol-Ipratrop 3 mg / 0.5 (3 ml) UD INH SCH ×3 (07:55→19:41)
[2018-01-09] MEDS: Pantoprazole 40 mg EC Tab PO SCH (08:57)
--- NOTE | 2018-01-09 09:37 | CARD ---
APPROVED REPORT EKG Measurement Heart [id number] <Conclusion> Sinus rhythm with premature atrial complexes Right bundle branch block Inferior infarct, age undetermined Abnormal ECG
[2018-01-09 10:39] LABS: HEMOGLOBIN 8.6 g/dL (12.0-18.0); MEAN CELL VOLUME 88.3 fl (80.0-94.0); RBC 2.88 Mil/uL (4.40-5.90); WHITE BLOOD COUNT 8.2 K/uL (4.8-10.8)
--- NOTE | 2018-01-09 11:39 | RAD ---
HISTORY: dyspnea COMPARISON: No prior. FINDINGS: LUNGS: No active pulmonary disease. PLEURA: No significant pleural effusion identified, no pneumothorax apparent. CARDIOVASCULAR: Normal. OSSEOUS STRUCTURES: No significant abnormalities. VISUALIZED UPPER ABDOMEN: Normal. OTHER FINDINGS: None. IMPRESSION: No active disease.
--- NOTE | 2018-01-09 11:41 | CP.PCM.PN ---
Subjective - Date & Time of Evaluation Date of Evaluation: 01/09/18 Time of Evaluation: 11:00 - Subjective Subjective: Patient seen and examined. Admitted feeling better after receiving one unit of PRBC. 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 Objective - Vital Signs/Intake and Output Vital Signs (last 24 hours): Temp Pulse Resp BP Pulse Ox 98 F 77 18 124/62 98 01/09/18 09:00 01/09/18 09:00 01/09/18 09:00 01/09/18 09:00 01/09/18 09:00 - Medications Medications: Current Medications Albuterol/Ipratropium (Duoneb 3 Mg/0.5 Mg (3 Ml) Ud) 3 ml INH RQ6 [facility] Last Admin: 01/09/18 07:55 Dose: 3 ml Atorvastatin Calcium (Lipitor) 80 mg PO DAILY [facility] Last Admin: 01/09/18 08:57 Dose: 80 mg Docusate Sodium (Colace) 100 mg PO BID [facility] Last Admin: 01/09/18 08:57 Dose: 100 mg Levothyroxine Sodium (Synthroid) 25 mcg PO DAILY@0630 [facility] Last Admin: 01/09/18 06:17 Dose: 25 mcg Meclizine HCl (Antivert) 12.5 mg PO Q6H PRN PRN Reason: Dizziness Nitroglycerin (Nitrostat Sl Tab) 0.4 mg SL Q5M PRN PRN Reason: Other Pantoprazole Sodium (Protonix Ec Tab) 40 mg PO DAILY [facility] Last Admin: 01/09/18 08:57 Dose: 40 mg Fluticasone/Salmeterol (Advair Diskus 250/50) 1 puff IH Q12 [facility] - Labs Labs: 01/09/18 10:32 01/08/18 16:00 PT 12.4 Seconds (9.8-13.1) 01/08/18 16:00 INR 1.1 (0.9-1.2) 01/08/18 16:00 APTT 32.8 Seconds (25.6-37.1) 01/08/18 16:00 - Constitutional Appears: No Acute Distress - Head Exam Head Exam: ATRAUMATIC - Eye Exam Eye Exam: absent: Scleral icterus Pupil Exam: PERRL - ENT Exam ENT Exam: Mucous Membranes Moist - Neck Exam Neck Exam: absent: Meningismus - Respiratory Exam Respiratory Exam: absent: Rales, Rhonchi, Wheezes, Respiratory Distress - Cardiovascular Exam Cardiovascular Exam: REGULAR RHYTHM, +S1, +S2 - GI/Abdominal Exam GI & Abdominal Exam: Soft. absent: Tenderness - Rectal Exam Rectal Exam: Deferred - Neurological Exam Neurological Exam: Alert, Oriented x3 - Psychiatric Exam Psychiatric exam: Normal Affect - Skin Skin Exam: Dry, Intact Assessment and Plan - Assessment and Plan (Free Text) Assessment: 82 yo male with history of CVA? (2016), AFib, CAD, COPD, CHF and Anemia brought in because of generalized weakness and dizziness upon getting out of bed several hrs prior to admission. Patient was admitted about 8 months ago for the same complaint and was found to be anemic. Anemia was thought to be secondary to GI bleed with positive stool guiac although EGD did not show any active bleeding or ulcer. Patient was transfused 4 units of PRBC and was sent home in stable and improved condition. 1. Symptomatic Anemia probably from GI bleed as was before received 1 unit of PRBC stool guiac GI consult with Dr Nina 2. Thrombocytopenia etiology unclear patient was seen by Dr Wong last year and was contemplating BM biopsy re-consult with Dr Wong 3. Paroxysmal AFib rate controlled no anticoagulant because of risk of bleeding and thrombocytopenia 4. Aortic Stenosis had Bovine Aortic Valve Replacement 5. History of CVA? facial droop noted on request for CT scan of the head on 12/23/2015 which showed only generalized atrophy patient is wheel chair bound since 2 yrs ago right facial droop with slurring, old and not acute no focal neurological deficit aside from above PT evaluation and management 6. DVT prophylaxis venodyne boots while in bed no anticoagulation as mentioned above
--- NOTE | 2018-01-09 11:45 | RAD ---
PROCEDURE: Left Hand Radiographs. HISTORY: pain COMPARISON: None. FINDINGS: BONES: Normal. No fracture. JOINTS: Diffuse degenerative changes and osteopenia. SOFT TISSUES: Normal. OTHER FINDINGS: None. IMPRESSION: No fracture.
[2018-01-09] MEDS: Fluticasone-Salmeterol 250-50mcg Diskus IH SCH ×2 (13:36→21:22)
--- NOTE | 2018-01-09 19:18 | CP.PCM.CON ---
History of Present Illness - History of Present Illness History of Present Illness: 82 yo male with h/o COPD, thrombocytopenia, and CHF admitted with anemia and dizzyness. Patient has had similar symptoms before and underwent GI workup. had upper endoscopy which showed mild esophagitis and 3 cm hiatal hernia. On 06/16/2017 had colonscopy, a 1 cm polyp was removed, and histopathologic exam showed tubular adenoma. Patient denies observing bleeding and his iron levels were normal on 05/11/2017 Review of Systems - EENT Eyes: absent: Blurred Vision Ears: absent: Decreased Hearing Nose/Mouth/Throat: absent: Epistaxis - Cardiovascular Cardiovascular: absent: Chest Pain - Respiratory Respiratory: absent: Dyspnea - Gastrointestinal Gastrointestinal: absent: Abdominal Pain - Genitourinary Genitourinary: absent: Change in Urinary Stream Past Patient History - Past Medical History & Family History Past Medical History?: Yes - Past Social History Smoking Status: Former Smoker Chewing Tobacco Use: No Cigar Use: No Alcohol: None Drugs: Denies Home Situation {Lives}: Alone - CARDIAC Hx Atrial Fibrillation: Yes Hx Congestive Heart Failure: Yes Hx Hypercholesterolemia: Yes Hx Hypertension: Yes - PULMONARY Hx Asthma: Yes Hx Chronic Obstructive Pulmonary Disease (COPD): Yes Hx Emphysema: Yes (on oxygen) - NEUROLOGICAL Hx Neurological Disorder: No - HEENT Hx HEENT Problems: No - RENAL Hx Chronic Kidney Disease: No - ENDOCRINE/METABOLIC Hx Hypothyroidism: Yes - HEMATOLOGICAL/ONCOLOGICAL Hx Anemia: Yes Hx Human Immunodeficiency Virus (HIV): No - INTEGUMENTARY Hx Dermatological Problems: No - MUSCULOSKELETAL/RHEUMATOLOGICAL Hx Arthritis: Yes - GASTROINTESTINAL Hx Gastrointestinal Disorders: No - GENITOURINARY/GYNECOLOGICAL Hx Genitourinary Disorders: No - PSYCHIATRIC Hx Psychophysiologic Disorder: No Hx Emotional Abuse: No Hx Physical Abuse: No Hx Substance Use: No - SURGICAL HISTORY Hx Surgeries: Yes Hx Herniorrhaphy: Yes (UMBILICAL) Other/Comment: RT FOOT SURGERY - ANESTHESIA Hx Anesthesia: Yes Hx Anesthesia Reactions: No Hx Malignant Hyperthermia: No Meds Allergies/Adverse Reactions: Allergies Allergy/AdvReac Type Severity Reaction Status Date / Time No Known Allergies Allergy Verified 01/08/18 15:05 - Medications Medications: Current Medications Albuterol/Ipratropium (Duoneb 3 Mg/0.5 Mg (3 Ml) Ud) 3 ml INH RQ6 [facility] Last Admin: 01/09/18 13:21 Dose: 3 ml Atorvastatin Calcium (Lipitor) 80 mg PO DAILY [facility] Last Admin: 01/09/18 08:57 Dose: 80 mg Docusate Sodium (Colace) 100 mg PO BID [facility] Last Admin: 01/09/18 17:49 Dose: 100 mg Levothyroxine Sodium (Synthroid) 25 mcg PO DAILY@0630 [facility] Last Admin: 01/09/18 06:17 Dose: 25 mcg Meclizine HCl (Antivert) 12.5 mg PO Q6H PRN PRN Reason: Dizziness Nitroglycerin (Nitrostat Sl Tab) 0.4 mg SL Q5M PRN PRN Reason: Other Pantoprazole Sodium (Protonix Ec Tab) 40 mg PO DAILY [facility] Last Admin: 01/09/18 08:57 Dose: 40 mg Fluticasone/Salmeterol (Advair Diskus 250/50) 1 puff IH Q12 [facility] Last Admin: 01/09/18 13:36 Dose: 1 puff Physical Exam - Constitutional Appears: No Acute Distress - Head Exam Head Exam: ATRAUMATIC - Eye Exam Eye Exam: EOMI - ENT Exam ENT Exam: Mucous Membranes Moist - Neck Exam Neck exam: Positive for: Normal Inspection - Respiratory Exam Respiratory Exam: Rales. absent: Rhonchi, Wheezes - Cardiovascular Exam Cardiovascular Exam: REGULAR RHYTHM, +S1, +S2. absent: Gallop - GI/Abdominal Exam GI & Abdominal Exam: Normal Bowel Sounds, Soft. absent: Tenderness Results - Vital Signs Recent Vital Signs: Last Vital Signs Temp 98.2 F 01/09/18 16:00 Pulse 74 01/09/18 16:00 Resp 20 01/09/18 16:00 BP 137/56 L 01/09/18 16:00 Pulse Ox 93 L 01/09/18 16:00 - Labs Result Diagrams: 01/09/18 10:32 01/08/18 16:00 Labs: Laboratory Results - last 24 hr 01/08/18 01/08/18 01/09/18 16:00 19:28 00:25 WBC RBC Hgb Hct MCV MCH MCHC RDW Plt Count pCO2 51 H pO2 56 L HCO3 32.3 H ABG pH 7.45 ABG Total CO2 37.0 H ABG O2 Saturation 95.7 ABG Base Excess 9.7 H Kartihk Test Yes ABG Potassium 4.2 A-a O2 Difference 30.0 Glucose 137 H Lactate 1.0 FiO2 21.0 Sodium 140 136.0 Potassium 4.0 Chloride 99 105.0 Carbon Dioxide 30 Anion Gap 15 BUN 18 Creatinine 0.8 Est GFR ( Amer) > 60 Est GFR (Non-Af Amer) > 60 Random Glucose 122 H Calcium 8.5 Total Bilirubin 0.6 AST 36 ALT 30 Alkaline Phosphatase 22 L Troponin I 0.0470 NT-Pro-B Natriuret Pep 736 Total Protein 5.4 L Albumin 3.1 L Globulin 2.3 Albumin/Globulin Ratio 1.3 TSH 3rd Generation Arterial Blood Potassium 4.2 Blood Type A NEGATIVE Antibody Screen Negative Crossmatch IS Only See Detail BBK History Checked Patient has bt 01/09/18 01/09/18 01/09/18 06:45 06:45 10:32 WBC 9.7 D RBC 3.07 L Hgb 9.2 L Hct 26.9 L MCV 87.6 MCH 29.9 MCHC 34.2 RDW 17.1 H Plt Count 57 L pCO2 pO2 HCO3 ABG pH ABG Total CO2 ABG O2 Saturation ABG Base Excess Karthik Test ABG Potassium A-a O2 Difference Glucose Lactate FiO2 Sodium Potassium Chloride Carbon Dioxide Anion Gap BUN Creatinine Est GFR ( Amer) Est GFR (Non-Af Amer) Random Glucose Calcium Total Bilirubin AST ALT Alkaline Phosphatase Troponin I 0.0430 0.0400 NT-Pro-B Natriuret Pep Total Protein Albumin Globulin Albumin/Globulin Ratio TSH 3rd Generation 0.92 Arterial Blood Potassium Blood Type Antibody Screen Crossmatch IS Only BBK History Checked 01/09/18 10:32 WBC 8.2 RBC 2.88 L Hgb 8.6 L Hct 25.4 L MCV 88.3 MCH 30.0 MCHC 34.0 RDW 17.0 H Plt Count 52 L pCO2 pO2 HCO3 ABG pH ABG Total CO2 ABG O2 Saturation ABG Base Excess Karthik Test ABG Potassium A-a O2 Difference Glucose Lactate FiO2 Sodium Potassium Chloride Carbon Dioxide Anion Gap BUN Creatinine Est GFR ( Amer) Est GFR (Non-Af Amer) Random Glucose Calcium Total Bilirubin AST ALT Alkaline Phosphatase Troponin I NT-Pro-B Natriuret Pep Total Protein Albumin Globulin Albumin/Globulin Ratio TSH 3rd Generation Arterial Blood Potassium Blood Type Antibody Screen Crossmatch IS Only BBK History Checked Assessment & Plan (1) Anemia Assessment and Plan: Etiology of anemia unclear. Patient last year had upper and lower endoscopy and no lesions significant enough to explain severe anemia seen. Should check stools for occult blood. Consult with hematology. Status: Acute
[2018-01-10] MEDS: Albuterol-Ipratrop 3 mg / 0.5 (3 ml) UD INH SCH ×4 (01:11→19:25)
[2018-01-10] MEDS: Levothyroxine 25 MCG TAB PO SCH (05:47)
[2018-01-10] MEDS: Fluticasone-Salmeterol 250-50mcg Diskus IH SCH ×2 (08:46→20:39)
[2018-01-10] MEDS: Pantoprazole 40 mg EC Tab PO SCH (08:47)
[2018-01-10] MEDS ORDERED: Lidocaine 2% Inj (20ml) SC ONE (09:39)
--- NOTE | 2018-01-10 11:10 | CP.PCM.PN ---
Subjective - Date & Time of Evaluation Date of Evaluation: 01/10/18 Time of Evaluation: 10:00 - Subjective Subjective: No fever Pt feels better weakness resolved no dizziness denies CP no SOB no abd pain Plan for BM biopsy - pt agreed refuses to go to [facility] , will consult Home Care for Home PT and RN Objective - Vital Signs/Intake and Output Vital Signs (last 24 hours): Temp Pulse Resp BP Pulse Ox 97.9 F 67 18 104/50 L 97 01/10/18 08:06 01/10/18 08:06 01/10/18 08:06 01/10/18 08:06 01/10/18 08:06 - Medications Medications: Current Medications Albuterol/Ipratropium (Duoneb 3 Mg/0.5 Mg (3 Ml) Ud) 3 ml INH RQ6 [facility] Last Admin: 01/10/18 08:02 Dose: 3 ml Atorvastatin Calcium (Lipitor) 80 mg PO DAILY [facility] Last Admin: 01/10/18 08:47 Dose: 80 mg Docusate Sodium (Colace) 100 mg PO BID [facility] Last Admin: 01/10/18 08:48 Dose: 100 mg Levothyroxine Sodium (Synthroid) 25 mcg PO DAILY@0630 [facility] Last Admin: 01/10/18 05:47 Dose: 25 mcg Meclizine HCl (Antivert) 12.5 mg PO Q6H PRN PRN Reason: Dizziness Nitroglycerin (Nitrostat Sl Tab) 0.4 mg SL Q5M PRN PRN Reason: Other Pantoprazole Sodium (Protonix Ec Tab) 40 mg PO DAILY [facility] Last Admin: 01/10/18 08:47 Dose: 40 mg Fluticasone/Salmeterol (Advair Diskus 250/50) 1 puff IH Q12 [facility] Last Admin: 01/10/18 08:46 Dose: 1 puff - Labs Labs: 01/09/18 10:32 01/08/18 16:00 PT 12.4 Seconds (9.8-13.1) 01/08/18 16:00 INR 1.1 (0.9-1.2) 01/08/18 16:00 APTT 32.8 Seconds (25.6-37.1) 01/08/18 16:00 - Constitutional Appears: No Acute Distress, Chronically Ill - Head Exam Head Exam: NORMAL INSPECTION, NORMOCEPHALIC - Eye Exam Eye Exam: EOMI, Normal appearance Pupil Exam: NORMAL ACCOMODATION - ENT Exam ENT Exam: Mucous Membranes Moist, Normal External Ear Exam - Neck Exam Neck Exam: Full ROM. absent: Meningismus - Respiratory Exam Respiratory Exam: Rhonchi, NORMAL BREATHING PATTERN. absent: Rales, Wheezes, Respiratory Distress - Cardiovascular Exam Cardiovascular Exam: REGULAR RHYTHM, +S1, +S2 - GI/Abdominal Exam GI & Abdominal Exam: Soft, Normal Bowel Sounds. absent: Tenderness - Extremities Exam Extremities Exam: absent: Calf Tenderness, Pedal Edema Additional comments: skin changes bilat LE -hyperpigmentation - Back Exam Back Exam: absent: CVA tenderness (L), CVA tenderness (R) - Neurological Exam Neurological Exam: Alert, Awake Additional comments: oriented to person and place moves upper and lower extremities UE : 4-5/5 , LE 3-4/5 - Psychiatric Exam Psychiatric exam: Normal Affect, Normal Mood - Skin Skin Exam: Dry, Normal Color, Warm Assessment and Plan - Assessment and Plan (Free Text) Assessment: 82 yo male with history of CVA? (2016), AFib, CAD, COPD, CHF and Anemia brought in because of generalized weakness and dizziness upon getting out of bed several hrs prior to admission. Patient was admitted about 8 months ago for the same complaint and was found to be anemic. Anemia was thought to be secondary to GI bleed with positive stool guiac although EGD did not show any active bleeding or ulcer. Patient was transfused 4 units of PRBC and was sent home in stable and improved condition. 1. Symptomatic Anemia with Thrombocytopenia need to r/o Hematological etio ? MDS received 1 unit of PRBC stool guiac GI consulted Dr Nina Pt had EGD and Colonoscopy done last year w/c showed Esophagitis and Polyp ( no bleeding) Hematology consulted , discussd case with Dr Jeremías napier - will do BM biopsy today 2. Thrombocytopenia etiology to be determined patient was seen by Dr Wong last year - plan for BM biopsy 3. Paroxysmal AFib rate controlled no anticoagulant because of risk of bleeding and thrombocytopenia 4. Aortic Stenosis had Bovine Aortic Valve Replacement 5. History of CVA facial droop noted on request for CT scan of the head on 12/23/2015 which showed only generalized atrophy patient is wheelchair bound since 2 yrs ago right facial droop with slurring, old and not acute no focal neurological deficit aside from above PT evaluation and management 6. Hypothyrodism - cont Levothyroxine 7.COPD, stable, chronic cont ADvair, Duoneb prn DVT prophylaxis venodyne boots while in bed no anticoagulation due to anemia and low Platelet
--- NOTE | 2018-01-10 12:51 | CP.PCM.PN ---
Subjective - Date & Time of Evaluation Date of Evaluation: 01/10/18 Time of Evaluation: 12:43 - Subjective Subjective: This is a 82 yrs old male who was admitted with c/o weakness and dizziness. . He has a h/o chronic anemia and has ad a GI work up done and not much was found other than some gastritis and small hiatal hernia. . He had similar findings aaain april 2017, but did not get a bone marrow done because he wanted to get the GI work done first. Now he was feeling weak and came to the ER from where he was admitted. His WBC was , HGB, HCT, MCV, and platelets 55K. He had no c/o bleeding from any site. He was a smoker in the past, but not anymore. He also has h/o GQAD, anemia,thrombocytopenia, HTN, Paroxysmal A Fib, hyperlipidemia , COPD, aortic stenosis Objective - Vital Signs/Intake and Output Vital Signs (last 24 hours): Temp Pulse Resp BP Pulse Ox 97.9 F 67 18 104/50 L 97 01/10/18 08:06 01/10/18 08:06 01/10/18 08:06 01/10/18 08:06 01/10/18 08:06 - Medications Medications: Current Medications Albuterol/Ipratropium (Duoneb 3 Mg/0.5 Mg (3 Ml) Ud) 3 ml INH RQ6 [facility] Last Admin: 01/10/18 08:02 Dose: 3 ml Atorvastatin Calcium (Lipitor) 80 mg PO DAILY [facility] Last Admin: 01/10/18 08:47 Dose: 80 mg Docusate Sodium (Colace) 100 mg PO BID [facility] Last Admin: 01/10/18 08:48 Dose: 100 mg Levothyroxine Sodium (Synthroid) 25 mcg PO DAILY@0630 [facility] Last Admin: 01/10/18 05:47 Dose: 25 mcg Meclizine HCl (Antivert) 12.5 mg PO Q6H PRN PRN Reason: Dizziness Nitroglycerin (Nitrostat Sl Tab) 0.4 mg SL Q5M PRN PRN Reason: Other Pantoprazole Sodium (Protonix Ec Tab) 40 mg PO DAILY [facility] Last Admin: 01/10/18 08:47 Dose: 40 mg Fluticasone/Salmeterol (Advair Diskus 250/50) 1 puff IH Q12 [facility] Last Admin: 01/10/18 08:46 Dose: 1 puff - Labs Labs: 01/09/18 10:32 01/08/18 16:00 PT 12.4 Seconds (9.8-13.1) 01/08/18 16:00 INR 1.1 (0.9-1.2) 01/08/18 16:00 APTT 32.8 Seconds (25.6-37.1) 01/08/18 16:00 - Additional Findings Additional findings: Physical Exam; alert, well oriented in no acute distress. Neck; supple, no adenopathy Chest; Air entry poor bilaterally, no rales or rhonchi Heart; RSR, no murmur Abd; soft, no mass, no h/s megaly Assessment and Plan - Assessment and Plan (Free Text) Assessment: Impression; Anemia of chronic disease, R/O MDS . Thrombocytopenia , etiology to be determined. Plan: Plan; Have done a bone marrow aspiration . Will ck the smear tomorrow. will do a platelet antibody.
[2018-01-11] MEDS: Albuterol-Ipratrop 3 mg / 0.5 (3 ml) UD INH SCH ×3 (01:00→13:36)
[2018-01-11 05:31] LABS: BLOOD UREA NITROGEN 19 mg/dl (9-20); CALCIUM 8.3 mg/dL (8.4-10.2); GFR AFRICAN-AMERICAN > 60; GFR NON-AFRICAN AMERICAN > 60
[2018-01-11 05:50] LABS: BASO % 0.2 % (0.0-2.0); HEMOGLOBIN 8.1 g/dL (12.0-18.0); LYMPH # 0.5 K/uL (1.0-4.3); LYMPH % 8.9 % (20.0-40.0); MEAN CELL VOLUME 89.2 fl (80.0-94.0); MEAN CORPUSCULAR HEMOGLOBIN 29.3 pg (27.0-31.0); MEAN CORPUSCULAR HGB CONC 32.8 g/dL (33.0-37.0); MEAN PLATELET VOLUME 8.1 fl (7.2-11.7); MONO # 1.1 K/uL (0.0-0.8); MONO % 18.8 % (0.0-10.0); NEUT # 4.4 K/uL (1.8-7.0); NEUT % 72.1 % (50.0-75.0); NRBC % 0.2 % (0.0-0.0); PLATELET COUNT 45 K/uL (130-400); RBC 2.75 Mil/uL (4.40-5.90); RED CELL DISTRIBUTION WIDTH 17.7 % (11.5-14.5); WHITE BLOOD COUNT 6.1 K/uL (4.8-10.8)
[2018-01-11] MEDS: Levothyroxine 25 MCG TAB PO SCH (06:03)
[2018-01-11 08:35] VITALS: BP 110/55; PULSE 73; RESP 18; TEMP 98.5; O2SAT 94
[2018-01-11] MEDS: Fluticasone-Salmeterol 250-50mcg Diskus IH SCH (09:26)
[2018-01-11] MEDS: Pantoprazole 40 mg EC Tab PO SCH (09:27)
[2018-01-11 09:56] LABS: LYMPHOCYTE 7 % (20-50); METAMYELOCYTE 1 % (0-0); MONOCYTE 21 % (0-10); NEUTROPHIL 70 % (42-75); REACTIVE LYMPHOCYTES 1 % (0-0); TOTAL CELLS COUNTED 100
[2018-01-11 10:04] LABS: PLATELET ESTIMATE DECREASED (NORMAL)
[2018-01-11 10:05] LABS: ANISOCYTOSIS SLIGHT; HYPOCHROMIC SLIGHT; OVALOCYTES SLIGHT; TEARDROP CELLS SLIGHT
--- NOTE | 2018-01-11 10:07 | CP.PCM.PN ---
Subjective - Date & Time of Evaluation Date of Evaluation: 01/11/18 Time of Evaluation: 10:03 - Subjective Subjective: Pt is doing well. The bone marrow aspirate was normocellular, megakaryocytes adequate, M;E ratio 3 :1, Normal maturation of cells. there is however a slight increase in plasma cells about 10%. Will order work up meloa. Objective - Vital Signs/Intake and Output Vital Signs (last 24 hours): Temp Pulse Resp BP Pulse Ox 98.5 F 73 18 110/55 L 94 L 01/11/18 08:35 01/11/18 08:35 01/11/18 08:35 01/11/18 08:35 01/11/18 08:35 - Medications Medications: Current Medications Albuterol/Ipratropium (Duoneb 3 Mg/0.5 Mg (3 Ml) Ud) 3 ml INH RQ6 [facility] Last Admin: 01/11/18 07:55 Dose: 3 ml Atorvastatin Calcium (Lipitor) 80 mg PO DAILY [facility] Last Admin: 01/11/18 09:27 Dose: 80 mg Docusate Sodium (Colace) 100 mg PO BID [facility] Last Admin: 01/11/18 09:27 Dose: 100 mg Levothyroxine Sodium (Synthroid) 25 mcg PO DAILY@0630 [facility] Last Admin: 01/11/18 06:03 Dose: 25 mcg Meclizine HCl (Antivert) 12.5 mg PO Q6H PRN PRN Reason: Dizziness Nitroglycerin (Nitrostat Sl Tab) 0.4 mg SL Q5M PRN PRN Reason: Other Pantoprazole Sodium (Protonix Ec Tab) 40 mg PO DAILY [facility] Last Admin: 01/11/18 09:27 Dose: 40 mg Fluticasone/Salmeterol (Advair Diskus 250/50) 1 puff IH Q12 [facility] Last Admin: 01/11/18 09:26 Dose: 1 puff - Labs Labs: 01/11/18 04:25 01/11/18 04:25 PT 12.4 Seconds (9.8-13.1) 01/08/18 16:00 INR 1.1 (0.9-1.2) 01/08/18 16:00 APTT 32.8 Seconds (25.6-37.1) 01/08/18 16:00
--- NOTE | 2018-01-11 10:51 | CP.PCM.DIS ---
Provider - Provider Date of Admission: 01/09/18 11:37 Attending physician: Ean Skelton Primary care physician: Dr Santo Consults: GI : Dr Nina Hematology: Dr Jeremías Napier Time Spent in preparation of Discharge (in minutes): 35 Diagnosis - Discharge Diagnosis (1) Anemia Status: Acute Comment: acute on chronic (2) Aortic stenosis Status: Acute (3) COPD (chronic obstructive pulmonary disease) Status: Chronic Priority: High (4) Chronic atrial fibrillation Status: Chronic (5) Hypothyroidism Status: Chronic (6) Thrombocytopenia Status: Chronic (7) Chronic systolic CHF (congestive heart failure) Status: Chronic (8) History of CVA with residual deficit Status: Chronic Hospital Course - Lab Results Lab Results: Micro Results 01/08/18 16:00 Blood Blood Culture - Preliminary NO GROWTH AFTER 48 HOURS 01/08/18 16:00 Urine Urine Culture - Final <10,000 CFU/ML. MULTIPLE SPECIES. PROBABLE CONTAMINATION. Most Recent Lab Values WBC 6.1 K/uL (4.8-10.8) 01/11/18 04:25 RBC 2.75 Mil/uL (4.40-5.90) L 01/11/18 04:25 Hgb 8.1 g/dL (12.0-18.0) L 01/11/18 04:25 Hct 24.6 % (35.0-51.0) L 01/11/18 04:25 MCV 89.2 fl (80.0-94.0) 01/11/18 04:25 MCH 29.3 pg (27.0-31.0) 01/11/18 04:25 MCHC 32.8 g/dL (33.0-37.0) L 01/11/18 04:25 RDW 17.7 % (11.5-14.5) H 01/11/18 04:25 Plt Count 45 K/uL (130-400) L 01/11/18 04:25 MPV 8.1 fl (7.2-11.7) 01/11/18 04:25 Neut % (Auto) 72.1 % (50.0-75.0) 01/11/18 04:25 Lymph % (Auto) 8.9 % (20.0-40.0) L 01/11/18 04:25 [place] % (Auto) 18.8 % (0.0-10.0) H 01/11/18 04:25 Eos % (Auto) 0.0 % (0.0-4.0) 01/11/18 04:25 Baso % (Auto) 0.2 % (0.0-2.0) 01/11/18 04:25 Neut # (Auto) 4.4 K/uL (1.8-7.0) 01/11/18 04:25 Lymph # (Auto) 0.5 K/uL (1.0-4.3) L 01/11/18 04:25 [place] # (Auto) 1.1 K/uL (0.0-0.8) H 01/11/18 04:25 Eos # (Auto) 0.0 K/uL (0.0-0.7) 01/11/18 04:25 Baso # (Auto) 0.0 K/uL (0.0-0.2) 01/11/18 04:25 Neutrophils % (Manual) 70 % (42-75) 01/11/18 04:25 Lymphocytes % (Manual) 7 % (20-50) L 01/11/18 04:25 Reactive Lymphs % 1 % (0-0) H 01/11/18 04:25 Monocytes % (Manual) 21 % (0-10) H 01/11/18 04:25 Metamyelocytes % 1 % (0-0) H 01/11/18 04:25 Platelet Estimate Decreased (NORMAL) L 01/11/18 04:25 Hypochromasia (manual) Slight 01/11/18 04:25 Anisocytosis (manual) Slight 01/11/18 04:25 Tear Drop Cells Slight 01/11/18 04:25 Ovalocytes Slight 01/11/18 04:25 PT 12.4 Seconds (9.8-13.1) 01/08/18 16:00 INR 1.1 (0.9-1.2) 01/08/18 16:00 APTT 32.8 Seconds (25.6-37.1) 01/08/18 16:00 pCO2 51 mm/Hg (35-45) H 01/08/18 19:28 pO2 56 mm/Hg (80-100) L 01/08/18 19:28 HCO3 32.3 mmol/L (21-28) H 01/08/18 19:28 ABG pH 7.45 (7.35-7.45) 01/08/18 19:28 ABG Total CO2 37.0 mmol/L (22-28) H 01/08/18 19:28 ABG O2 Saturation 95.7 % (95-98) 01/08/18 19:28 ABG Base Excess 9.7 mmol/L (-2.0-3.0) H 01/08/18 19:28 Karthik Test Yes 01/08/18 19:28 ABG Potassium 4.2 mmol/L (3.6-5.2) 01/08/18 19:28 A-a O2 Difference 30.0 mm/Hg 01/08/18 19:28 Sodium 136.0 mmol/L (132-148) 01/08/18 19:28 Chloride 105.0 mmol/L (98-107) 01/08/18 19:28 Glucose 137 mg/dL (75-110) H 01/08/18 19:28 Lactate 1.0 mmol/L (0.7-2.1) 01/08/18 19:28 FiO2 21.0 % 01/08/18 19:28 Sodium 142 mmol/l (132-148) 01/11/18 04:25 Potassium 4.2 MMOL/L (3.6-5.0) 01/11/18 04:25 Chloride 99 mmol/L (98-107) 01/11/18 04:25 Carbon Dioxide 32 mmol/L (22-30) H 01/11/18 04:25 Anion Gap 15 (10-20) 01/11/18 04:25 BUN 19 mg/dl (9-20) 01/11/18 04:25 Creatinine 0.8 mg/dl (0.8-1.5) 01/11/18 04:25 Est GFR ( Amer) > 60 01/11/18 04:25 Est GFR (Non-Af Amer) > 60 01/11/18 04:25 Random Glucose 111 mg/dL (75-110) H 01/11/18 04:25 Calcium 8.3 mg/dL (8.4-10.2) L 01/11/18 04:25 Total Bilirubin 0.6 mg/dl (0.2-1.3) 04/14/18 16:00 AST 36 U/L (17-59) 01/08/18 16:00 ALT 30 U/L (21-72) 01/08/18 16:00 Alkaline Phosphatase 22 U/L (38-126) L 01/08/18 16:00 Troponin I 0.0400 ng/mL (0.00-0.120) 01/09/18 10:32 NT-Pro-B Natriuret Pep 736 pg/ml (0-900) 01/08/18 16:00 Total Protein 5.4 G/DL (6.3-8.2) L 01/08/18 16:00 Albumin 3.1 g/dL (3.5-5.0) L 01/08/18 16:00 Globulin 2.3 gm/dL (2.2-3.9) 01/08/18 16:00 Albumin/Globulin Ratio 1.3 (1.0-2.1) 01/08/18 16:00 TSH 3rd Generation 0.92 mIU/ML (0.46-4.68) 01/09/18 06:45 Arterial Blood Potassium 4.2 mmol/L (3.6-5.2) 01/08/18 19:28 Urine Color Yellow (YELLOW) 01/08/18 16:00 Urine Clarity Clear (Clear) 01/08/18 16:00 Urine pH 7.0 (5.0-8.0) 01/08/18 16:00 Ur Specific [place] 1.016 (1.003-1.030) 01/08/18 16:00 Urine Protein Negative mg/dL (NEGATIVE) 01/08/18 16:00 Urine Glucose (UA) Neg mg/dL (Normal) 01/08/18 16:00 Urine Ketones Negative mg/dL (NEGATIVE) 01/08/18 16:00 Urine Blood Negative (NEGATIVE) 01/08/18 16:00 Urine Nitrate Negative (NEGATIVE) 01/08/18 16:00 Urine Bilirubin Negative (NEGATIVE) 01/08/18 16:00 Urine Urobilinogen 2.0 mg/dL (0.2-1.0) 01/08/18 16:00 Ur Leukocyte Esterase Neg Chloe/uL (Negative) 01/08/18 16:00 Urine RBC (Auto) 1 /hpf (0-3) 01/08/18 16:00 Urine Microscopic WBC 1 /hpf (0-5) 01/08/18 16:00 Ur Squamous Epith Cells < 1 /hpf (0-5) 01/08/18 16:00 Blood Type A NEGATIVE 01/09/18 00:25 Antibody Screen Negative 01/09/18 00:25 Crossmatch IS Only See Detail 01/09/18 00:25 BBK History Checked Patient has bt 01/09/18 00:25 - Hospital Course Hospital Course: 82 yo male with history of CVA (2016), AFib, CAD, COPD, Systolic CHF and Anemia brought in because of generalized weakness and dizziness upon getting out of bed several hrs prior to admission. Patient was admitted about 8 months ago for the same complaint and was found to be anemic. Anemia was thought to be secondary to GI bleed with positive stool guiac although EGD did not show any active bleeding or ulcer. And Colonoscopy done also did not reveal any source of bleeding. On this admission , the patient was transfused 1 unit PRBC. GI was consulted and rec Hematology work up. Hematology was consulted and pt underwent BM biopsy. Physical therapy consulted- rec Home with services. 1. Symptomatic Anemia with Thrombocytopenia need to r/o Hematological etiology received 1 unit of PRBC GI consulted Dr Nina Pt had EGD and Colonoscopy done last year w/c showed Esophagitis and Polyp ( no bleeding) Hematology consulted , discussed case with Dr Jeremías napier - BM biopsy done ( prelim reading of smaer showed some Plasma cells ) , further work up sent to r/ o Myeloma - pt to ff up with Dr Jeremías Napier as outpt for result 2. Thrombocytopenia etiology to be determined patient was seen by Dr Wong last year - BM biopsy done 3. Paroxysmal AFib rate controlled no anticoagulant because of risk of bleeding and thrombocytopenia 4. Aortic Stenosis had Bovine Aortic Valve Replacement 5. History of CVA patient is wheelchair bound since 2 yrs ago right facial droop with slurring, old and not acute no focal neurological deficit aside from above PT evaluation and management 6. Hypothyrodism - cont Levothyroxine 7.COPD, stable, chronic cont ADvair, Duoneb prn 8. Chronic Systolic CHF stable start Lisinopril low dose , no BB bec of low HR DVT prophylaxis venodyne boots while in bed no anticoagulation due to anemia and low Platelet Discharge Exam - Head Exam Head Exam: NORMAL INSPECTION, NORMOCEPHALIC - Eye Exam Eye Exam: EOMI, Normal appearance Pupil Exam: NORMAL ACCOMODATION - ENT Exam ENT Exam: Mucous Membranes Moist, Normal External Ear Exam - Neck Exam Neck exam: Full Rom - Respiratory Exam Respiratory Exam: NORMAL BREATHING PATTERN. absent: Respiratory Distress - Cardiovascular Exam Cardiovascular Exam: Irregular Rhythm, +S1, +S2 - GI/Abdominal Exam GI & Abdominal Exam: Normal Bowel Sounds, Soft. absent: Tenderness - Extremities Exam Additional comments: stasis skin changes bilat LE - Neurological Exam Neurological exam: Alert, Oriented x3 - Psychiatric Exam Psychiatric exam: Normal Affect, Normal Mood - Skin Skin Exam: Dry, Normal Color, Warm Discharge Plan - Discharge Medications Prescriptions: RX: Docusate [Colace] 100 mg PO BID #60 cap RX: Fluticasone/Salmeterol 250/50 [Advair Diskus 250/50] 1 puff IH Q12 #1 puff RX: Levothyroxine [Synthroid] 25 mcg PO DAILY@0630 #30 tab RX: Pantoprazole [Protonix EC Tab] 40 mg PO DAILY #30 ect - Follow Up Plan Condition: IMPROVED Disposition: HOME/ ROUTINE Instructions: Bleeding Precautions, Weakness (ED) Additional Instructions: appt with Dr Jeremías Napier in 1 wk for result of BM biopsy appt with Dr Santo suzy Referrals: Adan Napier MD [Staff Provider] - Ayaka Santo MD [Family Provider] - Severiano Nina MD [Staff Provider] - Clinical Quality Measures - CQM - Heart Failure Ejection Fraction: Less Than 40 % Left Ventricular Function to be assessed after discharge: Yes ANTHONY Inhibitor Prescribed: Yes Contraindication/Reason for not providing: low BP Angiotensin II Receptor Joseph Prescribed: No Contraindication/Reason for not providing: low BP AnticoagulationTherapy for Atrial Fibrillation/Atrialflutter: No Contraindication/Reason for not providing: low BP Aldosterone Antagonist Prescribed: No Contraindication/Reason for not providing: low BP Hydralazine Nitrate Prescribed: No Contraindication/Reason for not providing: low BP Implantable Cardioverter Defibrillator Therapy: No Contraindication/Reason for not providing: N/A Cardiac Resynchronization Therapy Prescribed: No Contraindication/Reason for not providing: N/A Will be discharged to: Home Follow Up Date (must be within 7 days from discharge): 01/12/18 Follow Up Time: 09:00 - Date & Time of Discharge Summary Date of Discharge Summary: 01/11/18 Time of Discharge Summary: 14:36
--- NOTE | 2018-01-11 13:47 | PQF GENQUE ---
Dr. Rubin, Please specify the acuity of Systolic Heart Failure in your progress notes: versus hx. only and not currently treated or CHF ruled out? ACUITY: Acute Chronic Acute on chronic Other (please specify) Clinically unable to determine Unknown CXR:Impression: No active disease. ProBNP:736 H and P: PMH:Systolic CHF This form is a permanent part of the medical record Clarification of your documentation is requested to better reflect the severity of illness and intensity of treatment of your patient. Indicators present [] Specify: [] [] Specify: [] [] Specify: [] [] Specify: [] Location in the medical record that reflects the above clinical findings: [] Treatment Provided: [] PHYSICIAN'S RESPONSE Chronic systolic CHF Based on your medical judgment of the clinical indicators outlined above please clarify the following: [] Practitioner response [] If unable to determine, please check the box, sign and date. Present On Admission (POA) Indicator: [] Present at the time of admission [] Not present at the time of admission [] Clinically Undetermined In responding to this query, please exercise your independent professional judgment. The fact that a question is asked does not imply that any particular answer is desired or expected. Thank you for your clarification on this documentation. If you have any questions please call. * Thank you, Sarina Tsai RN ext. #[phone] MTDD
== END 2018-01-11 14:51 | disposition hospice, home (50) | DRG 812 ==
LOC: H.ER 15:04 → H.ERHOLD 22:06 → H.TEL 01-09 01:55 → OBSVTOIN 01-09 11:37
PROVIDERS: ADMIT Internal Medicine; ATTEND Internal Medicine
PROC: 30233N1 Transfusion of Nonautologous Red Blood Cells into Peripheral Vein, Percutaneous Approach (ICD-10-PCS; principal; 2018-01-09)
PROC: 079T3ZX Drainage of Bone Marrow, Percutaneous Approach, Diagnostic (ICD-10-PCS; 2018-01-10)
DX: D64.9 Anemia, unspecified (principal); I50.22 Chronic systolic (congestive) heart failure; I11.0 Hypertensive heart disease with heart failure; D69.6 Thrombocytopenia, unspecified; I48.0 Paroxysmal atrial fibrillation; I48.2 Chronic atrial fibrillation; I35.0 Nonrheumatic aortic (valve) stenosis; I25.10 Atherosclerotic heart disease of native coronary artery without angina pectoris; D63.8 Anemia in other chronic diseases classified elsewhere; E03.9 Hypothyroidism, unspecified; K44.9 Diaphragmatic hernia without obstruction or gangrene; K29.70 Gastritis, unspecified, without bleeding; K20.9 Esophagitis, unspecified; E78.5 Hyperlipidemia, unspecified; E78.00 Pure hypercholesterolemia, unspecified; J43.9 Emphysema, unspecified; I69.392 Facial weakness following cerebral infarction; Z99.81 Dependence on supplemental oxygen; Z95.3 Presence of xenogenic heart valve; Z99.3 Dependence on wheelchair; M19.90 Unspecified osteoarthritis, unspecified site; E66.9 Obesity, unspecified; Z68.37 Body mass index [BMI] 37.0-37.9, adult; Z86.010 Personal history of colon polyps; Z87.891 Personal history of nicotine dependence